=== PATIENT | female | born 1980 | race Hispanic/Latino ===

== ENCOUNTER 2016-09-19 08:30 | Inpatient (IN) | payer MEDICAID, OTHER ==
[2014-05-11 16:30] VITALS: BMI 17.7
[2016-09-19] MEDS ORDERED: Sodium Chloride 0.9% 1,000 ML IV ONE (09:01)
--- NOTE | 2016-09-19 09:34 | C.PDOC ---
History Of Present Illness 35 y/o female presents to the ED with complains of nausea, vomiting x1 month. Pt states every time she eats or drinks, she immediately becomes nauseous and vomits. She also states she hasn't been able to take her bipolar medications due to her N/V symptoms; she admits to worsening depression. Pt denies abdominal pain, diarrhea, chest pain, SOB, cough, fever. Time Seen by Provider: 09/19/16 08:41 Chief Complaint (Nursing): GI Problem History Per: Patient History/Exam Limitations: no limitations Onset/Duration Of Symptoms: Days Current Symptoms Are (Timing): Still Present Severity: Mild Recent travel outside of the [place]: No Past Medical History Reviewed: Historical Data, Nursing Documentation, Vital Signs Vital Signs: Last Vital Signs Temp 97.5 F L 09/22/16 15:14 Pulse 57 L 09/22/16 15:14 Resp 20 09/22/16 15:14 BP 100/69 09/22/16 15:14 Pulse Ox 100 09/24/16 15:12 - Medical History PMH: Asthma, Bipolar Disorder, Seizures (last seizure was 2013-jun) Surgical History: Appendectomy - [facility] Procedures ARTIF RUPT MEMBRANES NEC (09/29/04) CERVICAL LES CAUTERIZAT (05/14/14) D & C NEC (04/15/02) EPISIOTOMY (09/29/04) HYSTEROSCOPY (04/15/02) NEBULIZER THERAPY (03/17/04) UTERINE LES DESTRUCT NEC (04/15/02) Family History: States: No Known Family Hx - Social History Hx Alcohol Use: Yes Hx Substance Use: No Review Of Systems Except As Marked, All Systems Reviewed And Found Negative. Constitutional: Negative for: Fever Cardiovascular: Negative for: Chest Pain, Palpitations Respiratory: Negative for: Cough, Shortness of Breath Gastrointestinal: Positive for: Nausea, Vomiting. Negative for: Abdominal Pain , Diarrhea Genitourinary: Negative for: Dysuria, Hematuria Psych: Positive for: Depression Physical Exam - Physical Exam Appears: Non-toxic, No Acute Distress, Other (thin) Skin: Warm, Dry, No Rash Head: Normacephalic Oral Mucosa: Moist Neck: Supple Cardiovascular: Rhythm Regular, No Murmur Respiratory: Normal Breath Sounds, No Rales, No Rhonchi, No Wheezing Gastrointestinal/Abdominal: Soft, Tenderness (mild epigastric tenderness), No Guarding, No Rebound, Other ((-) Penn's, (-) McBurney's) Back: No CVA Tenderness Extremity: Bilateral: Atraumatic Neurological/Psych: Oriented x3 ED Course And Treatment - Laboratory Results Result Diagrams: 09/22/16 07:17 09/22/16 07:17 ECG: Interpreted By Me, Viewed By Me (NSR 73 bpm, normal axis, ST depressions II , III, aVF, V3-V6) ECG Interpretation: Abnormal O2 Sat by Pulse Oximetry: 100 (on room air) Pulse Ox Interpretation: Normal - CT Scan/US ABD US Other Rad Studies (CT/US): Read By Radiologist, Radiology Report Reviewed CT/US Interpretation: Accession No. : [id number]. Patient Name / ID : BETO [id number] / [id number]. Exam Date : 09/19/2016 10:18:40 ( Approved ). Study Comment : Sex / Age : F / 35Y. Creator : Frank Euceda MD. Dictator : Frank Euceda MD. Product Safety Technical Assistant : Exchange Specialist : Frank Euceda MD. Approver2 : Report Date : 09/19/2016 11:08:39. My Comment : . Right upper quadrant abdominal ultrasound. History: Persistent epigastric abdominal pain. Comparison: None available. Technique: Real-time sonography was performed through the right upper quadrant of the abdomen. Findings: Liver: 19.1 centimeters in length. Increased echogenicity. Gallbladder appears preserved. Normal wall thickness of 1.1 millimeters. Common bile duct measures 5.3 millimeters, within normal limits. Visualized portions of the pancreas are preserved. Pancreatic tail not well visualized. Visualized aorta and IVC are preserved. Right kidney: 12.7 x 4.9 x 5.0 centimeters. No calculi or hydronephrosis. Impression: Prominent liver measuring 19.1 centimeters with diffuse increased echogenicity suggestive for fatty infiltration versus diffuse hepatic parenchymal disease. Clinical correlation. Limited visualization of the pancreas. Clinical correlation. Progress Note: Plan: Blood work, UA, Upreg ordered and reviewed. Patient given IV NS bolus. Blood work shows severe hypokalemia (K=1.8) - IV KCL and PO PKdur ordered. - Physician Consult Information Physician Contacted: Eusebio Culver Outcome Of Conversation: Discussed patient with Dr. Culver, he agrees with telemetry admission for severe hypokalemia, persistent vomiting, abnormal ekg, bipolar disorder. Psych consult entered. Disposition - Disposition Disposition: HOSPITALIZED Disposition Time: 11:14 Condition: STABLE - Clinical Impression Clinical Impression: Persistent vomiting, Abnormal EKG, Hypokalemia, Bipolar disorder - Scribe Statement The provider has reviewed the documentation as recorded by the Daniel Maria Provider Attestation: All medical record entries made by the Daniel were at my direction and personally dictated by me. I have reviewed the chart and agree that the record accurately reflects my personal performance of the history, physical exam, medical decision making, and the department course for this patient. I have also personally directed, reviewed, and agree with the discharge instructions and disposition. Decision To Admit - Pt Status Changed To: Hospital Disposition Of: Inpatient - Admit Certification Admit to Inpatient:: After my assessment, the patient will require hospitalization for at least two midnights. This is because of the severity of symptoms shown, intensity of services needed, and/or the medical risk in this patient being treated as an outpatient. - InPatient: Physician Admission Certification: I certify that this patient requires 2 or more midnights of care for the following reason:: see notes - . Bed Request Type: Telemetry Admitting Physician: Eusebio Culver Patient Diagnosis: Persistent vomiting, Hypokalemia, Abnormal EKG, Bipolar disorder
[2016-09-19 09:51] LABS: BASO % 0.5 % (0.0-2.0); EOS % 0.3 % (0.0-4.0); LYMPH # 0.9 K/uL (1.0-4.3); LYMPH % 9.8 % (20.0-40.0); MEAN CELL VOLUME 106.1 fL (81.0-99.0); MEAN CORPUSCULAR HEMOGLOBIN 36.4 pg (27.0-31.0); MEAN CORPUSCULAR HGB CONC 34.3 g/dL (33.0-37.0); MEAN PLATELET VOLUME 8.1 fL (7.2-11.7); MONO # 1.1 K/uL (0.0-0.8); MONO % 12.3 % (0.0-10.0); PLATELET COUNT 329 K/uL (130-400); RED CELL DISTRIBUTION WIDTH 21.2 % (11.5-14.5); WHITE BLOOD COUNT 8.8 K/uL (4.8-10.8)
[2016-09-19 09:56] LABS: CHLORIDE 83 mmol/L (98-107); SODIUM 133 mmol/L (132-148)
[2016-09-19 09:58] LABS: GFR AFRICAN-AMERICAN > 60
[2016-09-19 09:59] LABS: ALKALINE PHOSPHATASE 136 U/L (38-126); ALT/SGPT 55 U/L (9-52); AST/SGOT 135 U/L (14-36); BILIRUBIN,TOTAL 0.9 mg/dL (0.2-1.3); BLOOD UREA NITROGEN 6 mg/dL (7-17); CALCIUM 8.4 mg/dl (8.6-10.4); GLUCOSE,RANDOM 109 mg/dL (65-105); TOTAL PROTEIN 6.3 g/dL (6.3-8.3)
[2016-09-19 10:00] LABS: ALCOHOL SERUM < 10 mg/dl (0-10)
[2016-09-19 10:11] LABS: POTASSIUM 1.8 mmol/L (3.6-5.2)
[2016-09-19 10:12] LABS: CARBON DIOXIDE 40 mmol/L (22-30)
[2016-09-19 10:21] LABS: BASOPHIL 1 % (0-2); NEUTROPHIL 76 % (50-75); REACTIVE LYMPHOCYTES 1 % (0-0); TOTAL CELLS COUNTED 100
[2016-09-19 10:22] LABS: LARGE PLATELETS PRESENT; STOMATOCYTES SLIGHT
[2016-09-19 11:06] LABS: VENOUS BLOOD GAS BASE EXCESS 11.8 mmol/L (0.0-2.0); VENOUS BLOOD GAS PCO2 53 mmHg (40-60); VENOUS BLOOD PH 7.46 (7.32-7.43)
[2016-09-19] MEDS ORDERED: Potassium Chloride 20 mEq 100 ML IVPB ONE ×4 (11:07→13:18)
[2016-09-19] MEDS ORDERED: Potassium Chloride 20 mEq ER Tab PO STA ×4 (11:08→23:47)
--- NOTE | 2016-09-19 11:10 | US ---
Right upper quadrant abdominal ultrasound History: Persistent epigastric abdominal pain. Comparison: None available. Technique: Real-time sonography was performed through the right upper quadrant of the abdomen. Findings: Liver: 19.1 centimeters in length. Increased echogenicity. Gallbladder appears preserved. Normal wall thickness of 1.1 millimeters. Common bile duct measures 5.3 millimeters, within normal limits. Visualized portions of the pancreas are preserved. Pancreatic tail not well visualized. Visualized aorta and IVC are preserved. Right kidney: 12.7 x 4.9 x 5.0 centimeters. No calculi or hydronephrosis. Impression: Prominent liver measuring 19.1 centimeters with diffuse increased echogenicity suggestive for fatty infiltration versus diffuse hepatic parenchymal disease. Clinical correlation. Limited visualization of the pancreas. Clinical correlation.
[2016-09-19 11:24] LABS: INR 1.1
[2016-09-19 11:28] LABS: POTASSIUM 1.8 mmol/L (3.6-5.2)
[2016-09-19] MEDS ORDERED: Sodium Chloride 0.9% 1,000 ML ONE (11:35)
[2016-09-19] MEDS ORDERED: Potassium Chloride 20 mEq ER Tab PO ONE ×2 (11:35→11:44)
[2016-09-19 11:39] LABS: RBC URINE < 1 /hpf (0-3); URINE BACTERIA RARE (<OCC); URINE BILIRUBIN NEGATIVE (NEGATIVE); URINE BLOOD NEGATIVE (NEGATIVE); URINE COLOR Yellow (YELLOW); URINE GLUCOSE (UA) NORMAL (Normal); URINE KETONE NEGATIVE (NEGATIVE); URINE LEUKOCYTE ESTERASE NEG Leu/uL (Negative); URINE PROTEIN NEGATIVE (NEGATIVE); URINE UROBILINOGEN NORMAL mg/dL (0.2-1.0); WBC URINE < 1 /hpf (0-5)
[2016-09-19 12:39] LABS: TROPONIN I 0.029 ng/mL (0.00-0.120)
--- NOTE | 2016-09-19 13:08 | CP.PCM.HP ---
<Arely Barnes - Last Filed: 09/19/16 16:35> History of Present Illness - History of Present Illness History of Present Illness: Internal medicine H & P for Dr. Dia Barnes, PGY-1 Pt S & E at bedside. 35 F w/PMH sig for bipolar d/o, seizure d/o, hx breast and uterine CA admitted for intractable nausea and vomiting x 1-1.5 mos. Pt states that 1-1.5 mo ago she got "the flu", thought it would go away. Emesis occurs average 10x/day, occasionally bilious, non bloody, projectile, incited by all PO intake with subsequent wt loss of approx 20lbs/1 mo. Admits to fatigue, weakness, palpitations, abdominal pain only with emesis (severe, sharp, non radiating, epigastric, aggravated by movement/PO intake), Chest pressure with emesis, occasional headache with strong vomiting, sore throat from vomiting, B/L LE cramps. No alleviating factors identified. Pt did not try to go to PMD - mother recently, was not taking meds, did not want to go. Denies ever having before, vision changes, changes in bowel or bladder habits, cough, rhinorrhea, congestion. PMH: Bipolar d/o, seizure d/o, Hx breast CA (age 25), Hx uterine CA (age 27) PSH: B/L Mastectomy w/reconstruction (2016), uterine tumor resection with curettage (2008), uterine curettage w/bx (2009), LEEP w/RAJESH 3 (2013), appendectomy (1996) All: Denies SH: Admits to tobacco use #3/day x 6 mos, former hx of 1ppd x 15 yrs, denies recent ETOH use (last drink 3 yrs ago), denies illicit drugs FH: M- 05/2017, maternal grandmother and maternal aunt with breast CA in 70' s and 50's PMD: Kayla (sp?) Home meds: Dilantin, Depakote, Seroquel Pharmacy: [facility] Present on Admission - Present on Admission Any Indicators Present on Admission: No History of DVT/PE: No History of Uncontrolled Diabetes: No Urinary Catheter: No Decubitus Ulcer Present: No Review of Systems - Review of Systems All systems: reviewed and no additional remarkable complaints except - Constitutional Constitutional: Headache, Weight Loss, Weakness. absent: Chills, Fever - EENT Eyes: absent: Blurred Vision, Change in Vision, Diplopia Ears: absent: Dizziness Nose/Mouth/Throat: Sore Throat. absent: Nasal Congestion, Sinus Pressure - Cardiovascular Cardiovascular: Chest Pain, Palpitations - Respiratory Respiratory: absent: Cough, Dyspnea on Exertion - Gastrointestinal Gastrointestinal: Abdominal Pain, Nausea, Vomiting. absent: Constipation, Diarrhea, Hematemesis, Hematochezia, Melena - Genitourinary Genitourinary: absent: Change in Urinary Stream, Dysuria, Hematuria, Pyuria - Reproductive: Female Reproductive:Female: Amenorrhea (for 6 mos) - Musculoskeletal Musculoskeletal: Muscle Cramps, Muscle Weakness. absent: Back Pain, Numbness, Tingling - Integumentary Integumentary: absent: Rash - Neurological Neurological: Weakness - Endocrine Endocrine: absent: Polydipsia, Polyuria Past Patient History - Past Medical History & Family History Past Medical History?: Yes - Past Social History Smoking Status: Light Smoker < 10 Cigarettes Daily - CARDIAC Hx Cardiac Disorders: No - PULMONARY Hx Asthma: Yes - NEUROLOGICAL Hx Seizures: Yes (last seizure was 2013-jun) - HEENT Hx HEENT Problems: No - ENDOCRINE/METABOLIC Hx Endocrine Disorders: No - HEMATOLOGICAL/ONCOLOGICAL Hx Blood Disorders: Yes Hx Cancer: Yes (BREAST, UTERINE) - INTEGUMENTARY Hx Dermatological Problems: No - MUSCULOSKELETAL/RHEUMATOLOGICAL Hx Musculoskeletal Disorders: No - GASTROINTESTINAL Hx Gastrointestinal Disorders: No - GENITOURINARY/GYNECOLOGICAL Hx Genitourinary Disorders: Yes Hx Uterine Cancer: Yes - PSYCHIATRIC Hx Bipolar Disorder: Yes Hx Substance Use: No - SURGICAL HISTORY Hx Appendectomy: Yes - ANESTHESIA Hx Anesthesia: Yes Hx Anesthesia Reactions: No Hx Malignant Hyperthermia: No Meds Allergies/Adverse Reactions: Allergies Allergy/AdvReac Type Severity Reaction Status Date / Time No Known Allergies Allergy Unverified 09/19/16 08:40 Physical Exam - Constitutional Appears: Non-toxic, No Acute Distress - Head Exam Head Exam: ATRAUMATIC, NORMAL INSPECTION, NORMOCEPHALIC - Eye Exam Eye Exam: EOMI, Normal appearance, PERRL. absent: Scleral icterus Pupil Exam: NORMAL ACCOMODATION, PERRL - ENT Exam ENT Exam: Mucous Membranes Moist, Normal Exam - Neck Exam Neck exam: Positive for: Full Rom, Normal Inspection. Negative for: Tenderness - Respiratory Exam Respiratory Exam: Clear to Auscultation Bilateral, NORMAL BREATHING PATTERN. absent: Rales, Rhonchi, Wheezes, Respiratory Distress, Stridor - Cardiovascular Exam Cardiovascular Exam: Tachycardia, +S1, +S2 - GI/Abdominal Exam GI & Abdominal Exam: Diminished Bowel Sounds, Hypoactive Bowel Sounds, Soft. absent: Distended, Firm, Guarding, Hernia, Mass, Pulsatile Mass, Rebound, Rigid , Tenderness - Extremities Exam Extremities exam: Positive for: full ROM, normal inspection. Negative for: pedal edema, tenderness - Back Exam Back exam: FULL ROM, NORMAL INSPECTION. absent: paraspinal tenderness, tenderness - Neurological Exam Neurological exam: Alert, CN II-XII Intact, Oriented x3 - Psychiatric Exam Psychiatric exam: Normal Affect, Normal Mood - Skin Skin Exam: Dry, Intact, Pallor, Warm Results - Vital Signs Recent Vital Signs: Last Vital Signs Temp 98.1 F 09/19/16 08:35 Pulse 76 09/19/16 10:25 Resp 18 09/19/16 10:25 BP 104/72 09/19/16 10:25 Pulse Ox 100 09/19/16 11:16 - Labs Result Diagrams: 09/19/16 09:45 09/19/16 11:08 Labs: Laboratory Results - last 24 hr 09/19/16 11:24 Urine Color Yellow Urine Clarity Clear Urine pH 9.0 Ur Specific [place] 1.002 L Urine Protein Negative Urine Glucose (UA) Normal Urine Ketones Negative Urine Blood Negative Urine Nitrate Negative Urine Bilirubin Negative Urine Urobilinogen Normal Ur Leukocyte Esterase Neg Urine WBC (Auto) < 1 Urine RBC (Auto) < 1 Ur Squamous Epith Cells 1 Urine Bacteria Rare Urine HCG, Qual Negative Urine Opiates Screen Negative Urine Methadone Screen Negative Ur Barbiturates Screen Negative Ur Phencyclidine Scrn Negative Ur Amphetamines Screen Negative U Benzodiazepines Scrn Negative U Oth Cocaine Metabols Negative U Cannabinoids Screen Negative Assessment & Plan - Assessment and Plan (Free Text) Assessment: Metabolic acidosis with Severe hypokalemia and hypochloremia due to intractable vomiting K 1.8 Chloride 83 Bicarb 40 MCV 106.1 Given 40 mEq KCl PO and 20mEq KcL IVBP x 2 in ED EKG with Started Folic Acid 1mg PO Daily Started K-Dur 20mEq daily Started NS + Kcl 10mEq @150cc/hr Thiamine 100mg PO Daily Vitamin B12 1,000 mcg PO daily Zofran 4mg Q6H PRN U/A neg Beta HcG neg UDS neg Mechanical Supervisor referral Started on [facility]D GI consulted- Eugenio Transaminitis/abdominal pain AST 135 ALT 55 ALP 136 Monitor Ab U/S with Prominent liver measuring 19.1 centimeters with diffuse increased echogenicity suggestive for fatty infiltration versus diffuse hepatic parenchymal disease. Clinical correlation. Limited visualization of the pancreas. Clinical correlation GI consulted Headache Tylenol PRN hx Bipolar d/o Restarted home med: Seroquel 300mg PO HS Psych consulted- Chepe Hx Seizure d/o Restarted home meds: Dilantin 600mg Q12H, Depakote 750mg PO QAM + 250mg PO HS GI/DVT ppx Pepcid SCDs Ambulate Dispo Admit to tele VS Q4H FU STAT Mg, Phos FU CMP at 10PM Activtiy as eleazar Ad araseli OOBTC FU AM labs Seizure precautions DW attending - Date & Time Date: 09/19/16 Time: 11:30 Decision To Admit - Pt Status Changed To: Hospital Disposition Of: Inpatient - Admit Certification Admit to Inpatient:: After my assessment, the patient will require hospitalization for at least two midnights. This is because of the severity of symptoms shown, intensity of services needed, and/or the medical risk in this patient being treated as an outpatient. - InPatient: Physician Admission Certification:: severe hypokalemia, intractable nausea/ vomiting, 20 lb wt loss over 1 mo, inability to tolerate oral intake - . Bed Request Type: Telemetry Admitting Physician: Eusebio Culver <Eusebio Culver - Last Filed: 09/19/16 17:47> Results - Vital Signs Recent Vital Signs: Last Vital Signs Temp 98.5 F 09/19/16 15:58 Pulse 97 H 09/19/16 15:58 Resp 20 09/19/16 15:58 BP 121/73 09/19/16 15:58 Pulse Ox 98 09/19/16 15:58 - Labs Result Diagrams: 09/19/16 09:45 09/19/16 11:08 Labs: Laboratory Results - last 24 hr 09/19/16 11:24 Urine Color Yellow Urine Clarity Clear Urine pH 9.0 Ur Specific [place] 1.002 L Urine Protein Negative Urine Glucose (UA) Normal Urine Ketones Negative Urine Blood Negative Urine Nitrate Negative Urine Bilirubin Negative Urine Urobilinogen Normal Ur Leukocyte Esterase Neg Urine WBC (Auto) < 1 Urine RBC (Auto) < 1 Ur Squamous Epith Cells 1 Urine Bacteria Rare Urine HCG, Qual Negative Urine Opiates Screen Negative Urine Methadone Screen Negative Ur Barbiturates Screen Negative Ur Phencyclidine Scrn Negative Ur Amphetamines Screen Negative U Benzodiazepines Scrn Negative U Oth Cocaine Metabols Negative U Cannabinoids Screen Negative Attending/Attestation - Attestation I have personally seen and examined this patient.: Yes I have fully participated in the care of the patient.: Yes I have reviewed all pertinent clinical information: Yes Notes (Text): Medical attending: Patient was seen and examined by me, agrees the above note by medical radiation therapist. The patient explains to us that she's been having about one month now of difficulty eating due to vomiting. She doesn't have any abdominal pain at present, and she does not feel nauseous or vomiting. On her lab work she has a very low potassium of 1.8, she is ready received some potassium replacements in the ER were to give her additional replacements as well. Also her bicarbonate is 40. And she is probably metabolic alkalosis from vomiting that she's been having. She was ready given intravenous fluids in the ER, I do agree with this and would add potassium to the bag as well the fluid rate will be about 125 250. We' ll recheck her potassium later on in the day. she says that every now and then she's been having palpitations as well as body cramps. This may be secondary to the very low potassium levels that she's had Also of note on her blood work as a elevated MCV of 106. She needs to be on thiamine and folate. Once the potassium is more stable she may need a GI evaluation as well. Thank you very much, Eusebio Culver
[2016-09-19 14:36] LABS: MAGNESIUM 1.8 mg/dL (1.6-2.3); PHOSPHOROUS 2.8 mg/dL (2.5-4.5)
--- NOTE | 2016-09-19 15:34 | CP.PCM.CON ---
<En Orozco - Last Filed: 09/19/16 15:23> History of Present Illness - History of Present Illness History of Present Illness: PGY4 GI Fellow Consult Note Patient is a 35yo female with PMHx significant for breast/uterine cancer s/p chemotherapy and XRT, seizure disorder, bipolar disorder who presented to the hospital with complaint of frequent emesis for 1.5 months. Suddenly, 1.5 months ago the patient began to have spells of vomiting. She will have upwards of ten episodes per day and has been only able to tolerate minimal amounts of food or liquid in this time frame. Even without eating, she has been vomiting bilious, projectile emesis. Pt admits to 20lb weight loss during this time frame. Initially she believed she had the flu but as symptoms did not improve she became more concerned. She admits that her mother recently in May and she had not been adherent to her anti-epileptic or bipolar medications leading up to the onset of this illness. She did not seek medical attention sooner because, as she puts it, she was "depressed and did not care what happened to her." She admits to a regurgitation of undigested food moments after ingestion, a burning sensation in her throat, dizziness and fainting spells after long bouts of vomiting. She denies any abdominal pain, preceding nausea, hematemesis, hematochezia, melena. Of note, she admits to a history of breast and uterine cancer for which she underwent B/L mastectomy, XRT and chemotherapy. She [place]ologist [place] whom she follows. Denies any recurrence of disease. PMHx: See HPI PSHx: B/L mastectomy FHx: Multiple family members with cancer (breast, uterine, prostate) Social: 2-3 cigarettes/day, denies EtOH or illicit drug use Endo: No prior endoscopic evaluations Review of Systems - Constitutional Constitutional: Anorexia, Weight Loss. absent: Chills, Fever - EENT Eyes: absent: Change in Vision Nose/Mouth/Throat: absent: Sore Throat - Cardiovascular Cardiovascular: absent: Chest Pain, Dyspnea, Edema - Respiratory Respiratory: absent: Cough, Dyspnea, Excessive Mucous Production - Gastrointestinal Gastrointestinal: Odynophagia, Vomiting. absent: Abdominal Pain, Bloating, Constipation, Cramping, Diarrhea, Dyspepsia, Dysphagia, Heartburn, Hematemesis, Hematochezia, Melena, Nausea - Genitourinary Genitourinary: absent: Dysuria, Urinary Frequency, Urinary Urgency - Musculoskeletal Musculoskeletal: absent: Back Pain, Neck Pain - Integumentary Integumentary: absent: New Lesions, Rash - Neurological Neurological: absent: Dizziness, Numbness, Focal Weakness - Psychiatric Psychiatric: absent: Anxiety, Depression - Endocrine Endocrine: absent: Polydipsia, Polyphagia, Polyuria - Hematologic/Lymphatic Hematologic: absent: Easy Bleeding, Easy Bruising, Lymphadenopathy Past Patient History - Past Medical History & Family History Past Medical History?: Yes - Past Social History Smoking Status: Light Smoker < 10 Cigarettes Daily - CARDIAC Hx Cardiac Disorders: No Hx Angina: No Hx Atrial Fibrillation: No Hx Cardia Arrhythmia: No Hx Circulatory Problems: No Hx Congestive Heart Failure: No Hx Heart Attack: No Hx Heart Murmur: No Hx Heart Transplant: No Hx Hypercholesterolemia: No Hx Hypertension: No Hx Hypotension: No Hx Internal Defibrillator: No Hx Mitral Valve Prolapse: No Hx Pacemaker: No Hx Peripheral Edema: No Hx Peripheral Vascular Disease: No - PULMONARY Hx Asthma: Yes Hx Bronchitis: No Hx Chronic Obstructive Pulmonary Disease (COPD): No Hx Emphysema: No Hx Lung Cancer: No Hx Pneumonia: No Hx Pulmonary Edema: No Hx Pulmonary Embolism: No Hx Respiratory Aspiration: No Hx Respiratory Tract Infection: No Hx Sleep Apnea: No Hx Tuberculosis: No - NEUROLOGICAL Hx Neurological Disorder: No Hx Alzheimer's Disease: No HX Cerebrovascular Accident: No Hx Dementia: No Hx Dizziness: No Hx Meningitis: No Hx Migraine: No Hx Multiple Sclerosis: No Hx Paralysis: No Hx Parkinson's Disease: No Hx Seizures: Yes (last seizure was 2013-jun) Hx Syncope: No Hx Transient Ischemic Attacks (TIA): No Hx Vertigo: No - HEENT Hx HEENT Problems: No - RENAL Other/Comment: Appendix removal - ENDOCRINE/METABOLIC Hx Endocrine Disorders: No - HEMATOLOGICAL/ONCOLOGICAL Hx Blood Disorders: Yes Hx Cancer: Yes (BREAST, UTERINE) - INTEGUMENTARY Hx Dermatological Problems: No - MUSCULOSKELETAL/RHEUMATOLOGICAL Hx Falls: Yes (Seizures) - GASTROINTESTINAL Hx Gastrointestinal Disorders: No Hx Vomiting: Yes - GENITOURINARY/GYNECOLOGICAL Hx Genitourinary Disorders: Yes Hx Uterine Cancer: Yes - PSYCHIATRIC Hx Anxiety: No Hx Bipolar Disorder: Yes Hx Depression: No Hx Emotional Abuse: No Hx Hallucinations: No Hx Panic Symptoms: No Hx Paranoia: No Hx Post Traumatic Stress Disorder: No Hx Psychosis: No Hx Physical Abuse: No Hx Schizophrenia: No Hx Sexual Abuse: No Hx Substance Use: No - SURGICAL HISTORY Hx Appendectomy: Yes - ANESTHESIA Hx Anesthesia: Yes Hx Anesthesia Reactions: No Hx Malignant Hyperthermia: No Has any member of the family had a problem w/ anesthesia?: No Meds Allergies/Adverse Reactions: Allergies Allergy/AdvReac Type Severity Reaction Status Date / Time No Known Allergies Allergy Unverified 09/19/16 08:40 - Medications Medications: Current Medications Acetaminophen (Tylenol 325mg Tab) 650 mg PO Q6 PRN PRN Reason: Headache Cyanocobalamin (Vitamin B12 1000 Mcg Tab) 1,000 mcg PO DAILY [facility] Divalproex Sodium (Depakote Er) 250 mg PO HS [facility] Divalproex Sodium (Depakote Er) 750 mg PO QAM [facility] Famotidine (Pepcid) 20 mg PO BID [facility] Folic Acid (Folic Acid) 1 mg PO DAILY [facility] Home Med (Phenytoin Sodium Extended [Phenytoin Sodium Extended]) 600 mg PO Q12 [facility] Home Med (Quetiapine [Seroquel]) 300 mg PO HS [facility] Potassium Chloride 10 meq/ (Sodium Chloride) 1,005 mls @ 150 mls/hr IV .Q6H42M [facility] Ondansetron HCl (Zofran Inj) 4 mg IVP Q6 PRN PRN Reason: Nausea/Vomiting Potassium Chloride (K-Dur 20 Meq Er Tab) 20 meq PO DAILY [facility] Thiamine HCl (Vitamin B1 Tab) 100 mg PO DAILY [facility] Physical Exam - Constitutional Appears: Non-toxic, No Acute Distress, Other (thin) - Eye Exam Eye Exam: EOMI, PERRL - ENT Exam ENT Exam: Mucous Membranes Moist - Respiratory Exam Respiratory Exam: Clear to Auscultation Bilateral. absent: Rales, Rhonchi, Wheezes - Cardiovascular Exam Cardiovascular Exam: RRR, +S1, +S2 - GI/Abdominal Exam GI & Abdominal Exam: Normal Bowel Sounds, Soft. absent: Distended, Firm, Guarding, Organomegaly, Rigid, Tenderness - Extremities Exam Extremities exam: Positive for: normal inspection. Negative for: pedal edema - Neurological Exam Neurological exam: Alert, CN II-XII Intact, Oriented x3 - Psychiatric Exam Psychiatric exam: Normal Affect, Normal Mood - Skin Skin Exam: Dry, Warm Results - Vital Signs Recent Vital Signs: Last Vital Signs Temp 98.1 F 09/19/16 15:19 Pulse 97 H 09/19/16 15:19 Resp 20 09/19/16 15:19 BP 111/77 09/19/16 15:19 Pulse Ox 99 09/19/16 15:19 - Labs Result Diagrams: 09/19/16 09:45 09/19/16 11:08 Labs: Laboratory Results - last 24 hr 09/19/16 11:24 Urine Color Yellow Urine Clarity Clear Urine pH 9.0 Ur Specific [place] 1.002 L Urine Protein Negative Urine Glucose (UA) Normal Urine Ketones Negative Urine Blood Negative Urine Nitrate Negative Urine Bilirubin Negative Urine Urobilinogen Normal Ur Leukocyte Esterase Neg Urine WBC (Auto) < 1 Urine RBC (Auto) < 1 Ur Squamous Epith Cells 1 Urine Bacteria Rare Urine HCG, Qual Negative Urine Opiates Screen Negative Urine Methadone Screen Negative Ur Barbiturates Screen Negative Ur Phencyclidine Scrn Negative Ur Amphetamines Screen Negative U Benzodiazepines Scrn Negative U Oth Cocaine Metabols Negative U Cannabinoids Screen Negative Assessment & Plan - Assessment and Plan (Free Text) Assessment: Patient is a 35yo female with PMHx significant for breast/uterine cancer s/p chemotherapy and XRT, seizure disorder, bipolar disorder who presented to the hospital with complaint of frequent emesis for 1.5 months. -Frequent emesis with metabolic alkalosis -Hypokalemia -H/O Breast/Uterine cancer, in remission per patient -Bipolar d/o - nonadherent to therapy given current episode -Epilepsy - nonadherent to therapy given current episode -Tobacco abuse Plan: -Recommend barium esophagram -Pending results of above, consider EGD as patient has h/o malignancy along with current alarm features - significant weight loss -Replete electrolytes and monitor BMP -UDS, hCG both negative -U/S reviewed - suggestion of fatty liver, concerning in patient with BMI 16 -Consider further imaging with CT chest/abdomen/pelvis pending above results -Clear liquid diet, advance as tolerated -Antiemetic therapy as ordered by primary service -Strongly encourage tobacco cessation - Date & Time Date: 09/19/16 Time: 15:00 <Kavon Becker - Last Filed: 09/19/16 15:59> Meds - Medications Medications: Current Medications Acetaminophen (Tylenol 325mg Tab) 650 mg PO Q6 PRN PRN Reason: Headache Cyanocobalamin (Vitamin B12 1000 Mcg Tab) 1,000 mcg PO DAILY [facility] Divalproex Sodium (Depakote Er) 250 mg PO HS [facility] Divalproex Sodium (Depakote Er) 750 mg PO QAM [facility] Famotidine (Pepcid) 20 mg PO BID [facility] Folic Acid (Folic Acid) 1 mg PO DAILY [facility] Home Med (Phenytoin Sodium Extended [Phenytoin Sodium Extended]) 600 mg PO Q12 [facility] Home Med (Quetiapine [Seroquel]) 300 mg PO HS [facility] Potassium Chloride 10 meq/ (Sodium Chloride) 1,005 mls @ 150 mls/hr IV .Q6H42M [facility] Ondansetron HCl (Zofran Inj) 4 mg IVP Q6 PRN PRN Reason: Nausea/Vomiting Potassium Chloride (K-Dur 20 Meq Er Tab) 20 meq PO DAILY [facility] Thiamine HCl (Vitamin B1 Tab) 100 mg PO DAILY [facility] Results - Vital Signs Recent Vital Signs: Last Vital Signs Temp 98.1 F 09/19/16 15:19 Pulse 97 H 09/19/16 15:19 Resp 20 09/19/16 15:19 BP 111/77 09/19/16 15:19 Pulse Ox 99 09/19/16 15:19 - Labs Result Diagrams: 09/19/16 09:45 09/19/16 11:08 Labs: Laboratory Results - last 24 hr 09/19/16 11:24 Urine Color Yellow Urine Clarity Clear Urine pH 9.0 Ur Specific [place] 1.002 L Urine Protein Negative Urine Glucose (UA) Normal Urine Ketones Negative Urine Blood Negative Urine Nitrate Negative Urine Bilirubin Negative Urine Urobilinogen Normal Ur Leukocyte Esterase Neg Urine WBC (Auto) < 1 Urine RBC (Auto) < 1 Ur Squamous Epith Cells 1 Urine Bacteria Rare Urine HCG, Qual Negative Urine Opiates Screen Negative Urine Methadone Screen Negative Ur Barbiturates Screen Negative Ur Phencyclidine Scrn Negative Ur Amphetamines Screen Negative U Benzodiazepines Scrn Negative U Oth Cocaine Metabols Negative U Cannabinoids Screen Negative Attending/Attestation - Attestation I have personally seen and examined this patient.: Yes I have fully participated in the care of the patient.: Yes I have reviewed all pertinent clinical information: Yes Notes (Text): 09/19/16 15:47 I have seen and examined patient with GI fellow. Agree with above documentation with the following additions. In brief, this is a 35 year old female with history of breast cancer s/p mastectomy, chemo/radiation therapy 10 years ago, bipolar disorder, cervical dysplasia s/p LEEP, who presents to hospital with intractable nausea and non-bloody emesis for the past one month. She claims that she began to develop sudden onset inability to tolerate PO solids and liquids with up to 10 episodes of vomiting daily. She has been dealing with a in her family which has caused severe depression and led her to not seek medical care more urgently. She denies odynophagia or history of eating disorder but does endorse occasional regurgitation of food product. She also reports an approximately 20 pound weight loss during this time period. She denies state or recent illicit drug use. No prior endoscopic evaluation. Bipolar disorder History of breast cancer s/p mastectomy, chemo/radiation therapy History of cervical dysplasia s/p LEEP Intractable nausea, vomiting Abdominal US reviewed by me showing fatty liver, otherwise no gross pathology - Given prior cancer history along with sudden onset symptoms, would obtain CT imaging of chest/abdomen/pelvis for further evaluation to rule out mass lesion. Ideally, would give contrast however due to ongoing nausea, vomiting would suggest non-contrast study for time being. - IVF hydration, replete electrolytes - Clear liquid diet as tolerated - Suggest barium esophagram to rule out stricture given prior history of radiation - Anti-emetic therapy PRN - Patient may require further endoscopic evaluation pending results of studies and clinical progress. Will continue to monitor.
[2016-09-19] MEDS: Potassium Chloride 20 mEq ER Tab PO SCH (17:21)
--- NOTE | 2016-09-19 17:42 | CT ---
CT chest, abdomen, and pelvis without IV contrast Indication: frequent vomiting, weight loss, h/o breast ca Technique: Contiguous axial images of the chest, abdomen, and pelvis without oral or IV contrast. Coronal and Sagittal reformats generated and reviewed. This CT exam was performed using 1 or more of the falling dose reduction techniques: Automated exposure control, adjustment of the MAA and/or kV according to patient size, and/or use of iterative reconstruction technique. Radiation dose: Total exam DLP = 357.24 MGy-cm. Comparison: Limited abdominal ultrasound performed 09/19/16 Findings: Visualized portions of the inferior thyroid gland appear unremarkable. The unenhanced mediastinal and hilar vascular structures appear grossly unremarkable. The heart appears within normal limits of size. There is no focal consolidation, significant pleural effusion, or definite pneumothorax evident. Punctate right upper lobe calcified granuloma. No suspicious pulmonary nodules measuring greater than 5 mm. Small hiatal hernia/distal esophageal wall thickening. Diffuse hypoattenuation of the liver compatible with hepatic steatosis. Hepatomegaly. Gallstone within the gallbladder. The noncontrast spleen, kidneys, pancreas, and adrenal glands appear unremarkable. The stomach is nondistended. Lack of oral contrast limits evaluation for bowel pathology. The bowel loops appear within normal limits of caliber without evidence of intestinal obstruction. No secondary signs of acute appendicitis. There is no definite free air. Uterus is present. Under distended urinary bladder limits evaluation. Bilateral breast prostheses. No acute osseous abnormality is detected. If clinical concern for osseous metastases, suggest nuclear medicine bone scan. Impression: Hepatic steatosis. Hepatomegaly. Cholelithiasis. Small hiatal hernia/distal esophageal wall thickening. Bilateral breast prosthesis. Additional findings as above.
[2016-09-19 23:00] LABS: BASO % 0.6 % (0.0-2.0); EOS # 0.1 K/uL (0.0-0.7); EOS % 1.2 % (0.0-4.0); HEMATOCRIT 35.7 % (34.0-47.0); LYMPH # 1.7 K/uL (1.0-4.3); LYMPH % 28.4 % (20.0-40.0); MEAN CELL VOLUME 105.8 fL (81.0-99.0); MEAN CORPUSCULAR HEMOGLOBIN 35.9 pg (27.0-31.0); MEAN PLATELET VOLUME 7.8 fL (7.2-11.7); MONO # 1.2 K/uL (0.0-0.8); MONO % 19.6 % (0.0-10.0); NRBC % 0.1 % (0.0-2.0); WHITE BLOOD COUNT 6.1 K/uL (4.8-10.8)
[2016-09-19] MEDS: Divalproex 250 mg DR Tab PO SCH (23:02)
[2016-09-19 23:09] LABS: CHLORIDE 96 mmol/L (98-107); SODIUM 134 mmol/L (132-148)
[2016-09-19 23:10] LABS: POTASSIUM 2.7 mmol/L (3.6-5.2)
[2016-09-19 23:12] LABS: ALKALINE PHOSPHATASE 99 U/L (38-126); AST/SGOT 112 U/L (14-36); BILIRUBIN,TOTAL 0.4 mg/dL (0.2-1.3); BLOOD UREA NITROGEN 4 mg/dL (7-17); CARBON DIOXIDE 29 mmol/L (22-30); GFR AFRICAN-AMERICAN > 60
[2016-09-19 23:13] LABS: ALT/SGPT 45 U/L (9-52); CALCIUM 7.4 mg/dl (8.6-10.4); GLUCOSE,RANDOM 101 mg/dL (65-105)
[2016-09-20] MEDS ORDERED: Potassium Chloride 20 mEq ER Tab PO STA (02:07)
[2016-09-20 07:33] LABS: BASO % 1.1 % (0.0-2.0); EOS # 0.1 K/uL (0.0-0.7); EOS % 2.1 % (0.0-4.0); HEMATOCRIT 32.9 % (34.0-47.0); LYMPH # 1.7 K/uL (1.0-4.3); LYMPH % 41.3 % (20.0-40.0); MEAN CELL VOLUME 108.5 fL (81.0-99.0); MEAN CORPUSCULAR HEMOGLOBIN 36.3 pg (27.0-31.0); MEAN CORPUSCULAR HGB CONC 33.5 g/dL (33.0-37.0); MONO # 0.8 K/uL (0.0-0.8); MONO % 18.3 % (0.0-10.0); RED CELL DISTRIBUTION WIDTH 21.5 % (11.5-14.5); WHITE BLOOD COUNT 4.2 K/uL (4.8-10.8)
[2016-09-20 07:46] LABS: CHLORIDE 103 mmol/L (98-107); POTASSIUM 2.8 mmol/L (3.6-5.2); SODIUM 137 mmol/L (132-148)
[2016-09-20 07:48] LABS: AST/SGOT 82 U/L (14-36); BILIRUBIN,TOTAL 0.3 mg/dL (0.2-1.3); CARBON DIOXIDE 27 mmol/L (22-30); GFR AFRICAN-AMERICAN > 60
[2016-09-20 07:49] LABS: ALB/GLOB RATIO 0.9 (1.0-2.1); ALKALINE PHOSPHATASE 80 U/L (38-126); ALT/SGPT 40 U/L (9-52); BLOOD UREA NITROGEN 4 mg/dL (7-17); CALCIUM 7.2 mg/dl (8.6-10.4); GLUCOSE,RANDOM 94 mg/dL (65-105); MAGNESIUM 1.7 mg/dL (1.6-2.3); PHOSPHOROUS 2.4 mg/dL (2.5-4.5); TOTAL PROTEIN 4.3 g/dL (6.3-8.3)
[2016-09-20] MEDS ORDERED: Barium Sulfate for Susp 96% w/w 176g Bottle PR ONE (08:59)
[2016-09-20] MEDS ORDERED: Barium Sulfate for Susp 98% w/w 340g Bottle ONE (08:59)
[2016-09-20] MEDS ORDERED: Potassium Chloride 20 mEq ER Tab PO ONE (10:00)
[2016-09-20] MEDS: Potassium Chloride 20 mEq ER Tab PO SCH (10:46)
[2016-09-20] MEDS: Divalproex 250 mg DR Tab PO SCH ×2 (10:46→22:02)
[2016-09-20] MEDS ORDERED: Potassium & Sodium Phosphate PO ONE (11:00)
--- NOTE | 2016-09-20 11:03 | CP.PCM.PN ---
<ChristalnadyaEn hollis - Last Filed: 09/20/16 12:56> Subjective - Date & Time of Evaluation Date of Evaluation: 09/20/16 Time of Evaluation: 10:20 - Subjective Subjective: PGY4 GI Fellow Progress Note Patient seen and examined bedside this morning. The patient admits to feeling better since admission and has had no episodes of emesis. Tolerating clear liquid diet and just returned from barium esophagram. She denies any episodes overnight and currently has no discomfort. 12 system ROS performed and negative except where stated. Objective - Vital Signs/Intake and Output Vital Signs (last 24 hours): Temp Pulse Resp BP Pulse Ox 98 F 86 20 97/68 L 100 09/20/16 07:00 09/20/16 07:00 09/20/16 07:00 09/20/16 07:00 09/20/16 07:00 Intake and Output: 09/20/16 09/20/16 06:59 18:59 Intake Total 1320 Balance 1320 - Medications Medications: Current Medications Acetaminophen (Tylenol 325mg Tab) 650 mg PO Q6 PRN PRN Reason: Headache Cyanocobalamin (Vitamin B12 1000 Mcg Tab) 1,000 mcg PO DAILY [facility] Last Admin: 09/20/16 10:47 Dose: 1,000 mcg Divalproex Sodium (Depakote Dr) 250 mg PO HS [facility] Last Admin: 09/19/16 23:02 Dose: 250 mg Divalproex Sodium (Depakote Dr) 750 mg PO QAM [facility] Last Admin: 09/20/16 10:46 Dose: 750 mg Famotidine (Pepcid) 20 mg PO BID [facility] Last Admin: 09/20/16 10:47 Dose: 20 mg Folic Acid (Folic Acid) 1 mg PO DAILY [facility] Last Admin: 09/20/16 10:46 Dose: 1 mg Potassium Chloride 10 meq/ (Sodium Chloride) 1,005 mls @ 150 mls/hr IV .Q6H42M [facility] Last Admin: 09/20/16 10:49 Dose: 150 mls/hr Ondansetron HCl (Zofran Inj) 4 mg IVP Q6 PRN PRN Reason: Nausea/Vomiting Last Admin: 09/19/16 17:20 Dose: 4 mg Phenytoin Sodium (Dilantin) 600 mg PO Q12 [facility] Pneumococcal Polyvalent Vaccine (Pneumovax 23 Vaccine) 0.5 ml IM .ONCE ONE Stop: 09/22/16 10:01 Potassium Chloride (K-Dur 20 Meq Er Tab) 20 meq PO DAILY [facility] Last Admin: 09/20/16 10:46 Dose: 20 meq Potassium Phos/Sodium Phos (Neutra-Phos) 1 pkt PO ONCE ONE Stop: 09/20/16 11:01 Last Admin: 09/20/16 10:47 Dose: 1 pkt Quetiapine Fumarate (Seroquel) 300 mg PO HS [facility] Last Admin: 09/19/16 22:38 Dose: 300 mg Thiamine HCl (Vitamin B1 Tab) 100 mg PO DAILY [facility] Last Admin: 09/20/16 10:47 Dose: 100 mg - Labs Labs: 09/20/16 07:20 09/20/16 07:20 PT 12.2 SECONDS (9.7-12.2) 09/19/16 11:08 INR 1.1 09/19/16 11:08 APTT 29 SECONDS (21-34) 09/19/16 11:08 - Constitutional Appears: Non-toxic, No Acute Distress - Eye Exam Eye Exam: EOMI, PERRL - ENT Exam ENT Exam: Mucous Membranes Moist - Respiratory Exam Respiratory Exam: Clear to Ausculation Bilateral. absent: Rales, Rhonchi, Wheezes - Cardiovascular Exam Cardiovascular Exam: RRR, +S1, +S2 - GI/Abdominal Exam GI & Abdominal Exam: Soft, Normal Bowel Sounds. absent: Distended, Firm, Guarding, Rigid, Tenderness, Organomegaly - Extremities Exam Extremities Exam: Normal Inspection. absent: Pedal Edema - Neurological Exam Neurological Exam: Alert, Awake, Oriented x3 - Psychiatric Exam Psychiatric exam: Normal Affect, Normal Mood - Skin Skin Exam: Dry, Warm Assessment and Plan - Assessment and Plan (Free Text) Assessment: Patient is a 35yo female with PMHx significant for breast/uterine cancer s/p chemotherapy and XRT, seizure disorder, bipolar disorder who presented to the hospital with complaint of frequent emesis for 1.5 months. -Frequent emesis with metabolic alkalosis -Hypokalemia, improved -H/O Breast/Uterine cancer, in remission per patient -Bipolar d/o - nonadherent to therapy given current episode -Epilepsy - nonadherent to therapy given current episode -Tobacco abuse -Hepatic steatosis - former heavy EtOH use Plan: -CT reviewed, thickening noted at distal esophagus, possibly 2/2 frequent emesis but would warrant further evaluation in patient with h/o malignancy -Barium esophagram pending - per my interpretation, normal study -Plan for EGD tomorrow, NPO past MN - replete K prior to procedure -Replete electrolytes and monitor BMP -Check B12, folate and TSH in setting of macrocytosis, fatty liver -Clear liquid diet, advance to full liquid today -Antiemetic therapy as ordered by primary service -Strongly encourage tobacco cessation <Odalys Brar - Last Filed: 09/20/16 15:33> Objective - Vital Signs/Intake and Output Vital Signs (last 24 hours): Temp Pulse Resp BP Pulse Ox 98 F 92 H 20 97/68 L 100 09/20/16 07:00 09/20/16 10:00 09/20/16 07:00 09/20/16 07:00 09/20/16 07:00 Intake and Output: 09/20/16 09/20/16 06:59 18:59 Intake Total 1320 1500 Balance 1320 1500 - Medications Medications: Current Medications Acetaminophen (Tylenol 325mg Tab) 650 mg PO Q6 PRN PRN Reason: Headache Cyanocobalamin (Vitamin B12 1000 Mcg Tab) 1,000 mcg PO DAILY [facility] Last Admin: 09/20/16 10:47 Dose: 1,000 mcg Divalproex Sodium (Depakote Dr) 250 mg PO HS [facility] Last Admin: 09/19/16 23:02 Dose: 250 mg Divalproex Sodium (Depakote Dr) 750 mg PO QAM [facility] Last Admin: 09/20/16 10:46 Dose: 750 mg Famotidine (Pepcid) 20 mg PO BID [facility] Last Admin: 09/20/16 10:47 Dose: 20 mg Folic Acid (Folic Acid) 1 mg PO DAILY [facility] Last Admin: 09/20/16 10:46 Dose: 1 mg Potassium Chloride 10 meq/ (Sodium Chloride) 1,005 mls @ 150 mls/hr IV .Q6H42M [facility] Last Admin: 09/20/16 12:43 Dose: Not Given Ondansetron HCl (Zofran Inj) 4 mg IVP Q6 PRN PRN Reason: Nausea/Vomiting Last Admin: 09/19/16 17:20 Dose: 4 mg Phenytoin Sodium (Dilantin) 600 mg PO Q12 [facility] Last Admin: 09/20/16 12:46 Dose: 600 mg Pneumococcal Polyvalent Vaccine (Pneumovax 23 Vaccine) 0.5 ml IM .ONCE ONE Stop: 09/22/16 10:01 Potassium Chloride (K-Dur 20 Meq Er Tab) 20 meq PO DAILY [facility] Last Admin: 09/20/16 10:46 Dose: 20 meq Quetiapine Fumarate (Seroquel) 300 mg PO HS [facility] Last Admin: 09/19/16 22:38 Dose: 300 mg Thiamine HCl (Vitamin B1 Tab) 100 mg PO DAILY [facility] Last Admin: 09/20/16 10:47 Dose: 100 mg - Labs Labs: 09/20/16 07:20 09/20/16 07:20 PT 12.2 SECONDS (9.7-12.2) 09/19/16 11:08 INR 1.1 09/19/16 11:08 APTT 29 SECONDS (21-34) 09/19/16 11:08 Attending/Attestation - Attestation I have personally seen and examined this patient.: Yes I have fully participated in the care of the patient.: Yes I have reviewed all pertinent clinical information, including history, physical exam and plan: Yes Notes (Text): Patient seen and examined with GI fellow. Agree with his note as documented above with the following additions/exceptions. This is a 35 year old female with PMHx of breast/uterine cancer s/p chemotherapy and XRT, seizure disorder, bipolar disorder who presents with nausea/vomiting and severe electrolyte imbalance. She also reports weight loss. CT c/a/p with possible esophageal wall thickening, esophagram unremarkable. She feels slightly improved, no further vomiting. Continue antiemetic therapy as needed, full liquid diet as tolerated. Monitor electrolytes, continue with K repletion. Recommend EGD for further investigation, keep NPO p MN. 09/20/16 15:30
--- NOTE | 2016-09-20 11:30 | CARD ---
APPROVED REPORT EKG Measurement Heart [id number] <Conclusion> Normal sinus rhythm ST & T wave abnormality, consider lateral ischemia or digoxin effect Abnormal ECG
--- NOTE | 2016-09-20 13:05 | RAD ---
HISTORY: Dysphagia. COMPARISON: None. TECHNIQUE: Double Contrast esophagram was performed. FINDINGS: Patient tolerated procedure well. ESOPHAGUS: Esophageal mucosa appeared preserved. No evidence of stricture or mass lesion. HIATAL HERNIA: Questionable small hiatal hernia. GASTROESOPHAGEAL REFLUX: Not demonstrated. OTHER FINDINGS: None. IMPRESSION: No stricture or mass lesion identified. If symptoms persist, upper endoscopy can be considered.
--- NOTE | 2016-09-20 14:36 | PCM.PSYCH ---
Initial Psychiatric Evaluation - Initial Psychiatric Evaluation Type of Admission: Voluntary Legal Status: Capacity Chief Complaint (in patient's own words): I was vomiting History of Present Illness and Precipitating Events: Patient is a 35 years old CF, is currently unemployed but living with boyfriend , with a long history of bipolar disorder, came to the ED with continuous vomiting. Today patient was consulted because of history of bipolar disorder. Patient reports a long history of bipolar disorder. As per the patient he has been admitted to the hospital multiple times because of her condition. She was last discharge from [facility] couple of years ago. As per the patient she started vomiting continuously for a few days, as a result she stopped taking her medications, i.e. Depakote and Seroquel. Patient reports of racing of thoughts, flight of ideas, anxiety and irritability. She reports that she easily gets angry and irritable. At times she gets depressed but denies any feelings of hopelessness or helplessness. she denies any suicidal ideation or homicidal ideation. She reports at times persecutory delusions but denies any hallucinations. She denies any recent drinking or substance abuse. past medical history History of seizures, hx breast and uterine CA Current Medications: Active Medications Generic Name Dose Route Start Last Admin Trade Name Freq PRN Reason Stop Dose Admin Acetaminophen 650 mg 09/19/16 13:45 Tylenol 325mg Tab PO Q6 PRN Headache Cyanocobalamin 1,000 mcg 09/19/16 17:00 09/20/16 10:47 Vitamin B12 1000 Mcg Tab PO 1,000 mcg DAILY MARY GRACE Administration Divalproex Sodium 250 mg 09/19/16 22:00 09/19/16 23:[address] PO 250 mg HS MARY GRACE Administration Divalproex Sodium 750 mg 09/20/16 10:00 09/20/16 10:[address] PO 750 mg QAM MARY GRACE Administration Famotidine 20 mg 09/19/16 18:00 09/20/16 10:47 Pepcid PO 20 mg BID MARY GRACE Administration Folic Acid 1 mg 09/19/16 16:30 09/20/16 10:46 Folic Acid PO 1 mg DAILY MARY GRACE Administration Potassium Chloride 10 meq/ 1,005 mls @ 150 mls/hr 09/19/16 17:00 09/20/16 12:43 Sodium Chloride IV Not Given .Q6H42M MARY GRACE Ondansetron HCl 4 mg 09/19/16 13:45 09/19/16 17:20 Zofran Inj IVP 4 mg Q6 PRN Administration Nausea/Vomiting Phenytoin Sodium 600 mg 09/19/16 14:00 09/20/16 12:46 Dilantin PO 600 mg Q12 MARY GRACE Administration Pneumococcal Polyvalent Vaccine 0.5 ml 09/22/16 10:00 Pneumovax 23 Vaccine IM 09/22/16 10:01 .ONCE ONE Potassium Chloride 20 meq 09/19/16 16:45 09/20/16 10:46 K-Dur 20 Meq Er Tab PO 20 meq DAILY MARY GRACE Administration Quetiapine Fumarate 300 mg 09/19/16 22:00 09/19/16 22:38 Seroquel PO 300 mg HS [facility] Administration Thiamine HCl 100 mg 09/19/16 16:30 09/20/16 10:47 Vitamin B1 Tab PO 100 mg DAILY MARY GRACE Administration Past Psychiatric History - Past Psychiatric History Previous Treatment History: Inpatient Pertinent Medical Hx (Current Medical&Sleep Prob, Allergies): Allergies Allergy/AdvReac Type Severity Reaction Status Date / Time No Known Allergies Allergy Unverified 09/19/16 08:40 Divalproex [Depakote ER] 750 mg PO QAM 05/11/14 QUEtiapine [SEROquel] 300 mg PO HS 05/11/14 Divalproex [Depakote ER] 250 mg PO HS 09/19/16 Phenytoin Sodium Extended [Extended Phenytoin Sodium] 600 mg PO Q12 09/19/16 Review of Systems - Review of Systems All systems: reviewed and no additional remarkable complaints except - Psychiatric Psychiatric: Anxiety, Irritability, Panic Attacks Mental Status Examination - Personal Presentation Personal Presentation: Looks stated age - Affect Affect: Constricted - Motor Activity Motor Activity: Psychomotor Agitation - Reliability in Providing Information Reliability in Providing Information: Poor, due to altered mood - Speech Speech: Organized - Mood Mood: Anxious - Formal Thought Process Formal Thought Process: Flight of ideas - Obsessions/Compulsions Obsessions: No Compulsions: No - Cognitive Functions Orientation: Person, Place, Situation, Time Sensorium: Alert Attention/Concentration: Attentive Abstract Thinking: [place] Estimate of Intelligence: Below average Judgement: Imparied, as evidence by: Poor judgement, Imparied, as evidence by: Lack of insight into illness - Risk Risk: Diminished functioning - Strength & Assets Inventory Strength & Assets Inventory: Family support, Cooperative DSM 5 DX - DSM 5 DSM 5 Diagnosis: 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
--- NOTE | 2016-09-20 15:07 | CP.PCM.PN ---
<Arely Barnes - Last Filed: 09/20/16 15:04> Subjective - Date & Time of Evaluation Date of Evaluation: 09/20/16 Time of Evaluation: 07:30 - Subjective Subjective: Internal medicine progress note for Dr. Culver-Arely Barnes, PGY-1 Pt S & E at bedside. Pt reports feeling much improved. No nausea or vomiting over night. Tolerating CLD. Denies N/V/F/C, SOB, CP, abdominal pain, constipation, diarrhea. Objective - Vital Signs/Intake and Output Vital Signs (last 24 hours): Temp Pulse Resp BP Pulse Ox 98 F 92 H 20 97/68 L 100 09/20/16 07:00 09/20/16 10:00 09/20/16 07:00 09/20/16 07:00 09/20/16 07:00 Intake and Output: 09/20/16 09/20/16 06:59 18:59 Intake Total 1320 Balance 1320 - Medications Medications: Current Medications Acetaminophen (Tylenol 325mg Tab) 650 mg PO Q6 PRN PRN Reason: Headache Cyanocobalamin (Vitamin B12 1000 Mcg Tab) 1,000 mcg PO DAILY [facility] Last Admin: 09/20/16 10:47 Dose: 1,000 mcg Divalproex Sodium (Depakote Dr) 250 mg PO HS [facility] Last Admin: 09/19/16 23:02 Dose: 250 mg Divalproex Sodium (Depakote Dr) 750 mg PO QAM [facility] Last Admin: 09/20/16 10:46 Dose: 750 mg Famotidine (Pepcid) 20 mg PO BID [facility] Last Admin: 09/20/16 10:47 Dose: 20 mg Folic Acid (Folic Acid) 1 mg PO DAILY [facility] Last Admin: 09/20/16 10:46 Dose: 1 mg Potassium Chloride 10 meq/ (Sodium Chloride) 1,005 mls @ 150 mls/hr IV .Q6H42M [facility] Last Admin: 09/20/16 12:43 Dose: Not Given Ondansetron HCl (Zofran Inj) 4 mg IVP Q6 PRN PRN Reason: Nausea/Vomiting Last Admin: 09/19/16 17:20 Dose: 4 mg Phenytoin Sodium (Dilantin) 600 mg PO Q12 [facility] Last Admin: 09/20/16 12:46 Dose: 600 mg Pneumococcal Polyvalent Vaccine (Pneumovax 23 Vaccine) 0.5 ml IM .ONCE ONE Stop: 09/22/16 10:01 Potassium Chloride (K-Dur 20 Meq Er Tab) 20 meq PO DAILY [facility] Last Admin: 09/20/16 10:46 Dose: 20 meq Quetiapine Fumarate (Seroquel) 300 mg PO HS [facility] Last Admin: 09/19/16 22:38 Dose: 300 mg Thiamine HCl (Vitamin B1 Tab) 100 mg PO DAILY [facility] Last Admin: 09/20/16 10:47 Dose: 100 mg - Labs Labs: 09/20/16 07:20 09/20/16 07:20 PT 12.2 SECONDS (9.7-12.2) 09/19/16 11:08 INR 1.1 09/19/16 11:08 APTT 29 SECONDS (21-34) 09/19/16 11:08 - Constitutional Appears: Non-toxic, No Acute Distress, Cachectic - Head Exam Head Exam: ATRAUMATIC, NORMAL INSPECTION, NORMOCEPHALIC - Eye Exam Eye Exam: EOMI, Normal appearance, PERRL Pupil Exam: NORMAL ACCOMODATION, PERRL - ENT Exam ENT Exam: Mucous Membranes Moist, Normal Exam - Neck Exam Neck Exam: Full ROM, Normal Inspection. absent: Lymphadenopathy - Respiratory Exam Respiratory Exam: Clear to Ausculation Bilateral, NORMAL BREATHING PATTERN - Cardiovascular Exam Cardiovascular Exam: REGULAR RHYTHM, +S1, +S2. absent: Murmur - GI/Abdominal Exam GI & Abdominal Exam: Soft, Hypoactive Bowel Sounds. absent: Tenderness - Extremities Exam Extremities Exam: Full ROM, Normal Capillary Refill, Normal Inspection. absent : Joint Swelling, Pedal Edema - Back Exam Back Exam: NORMAL INSPECTION - Neurological Exam Neurological Exam: Alert, Awake, CN II-XII Intact, Oriented x3 - Psychiatric Exam Psychiatric exam: Normal Affect, Normal Mood - Skin Skin Exam: Dry, Intact, Pallor, Warm Assessment and Plan - Assessment and Plan (Free Text) Assessment: Metabolic acidosis with Severe hypokalemia and hypochloremia due to intractable vomiting - resolving K 2.8 from 1.8 Chloride 103 from 83 Bicarb 27 from 40 MCV 108.5 from 106.1 Replaced KCl 40mEq Cont Folic Acid 1mg PO Daily Cont K-Dur 20mEq daily Cont NS + Kcl 10mEq @150cc/hr Thiamine 100mg PO Daily Vitamin B12 1,000 mcg PO daily Zofran 4mg Q6H PRN U/A neg Beta HcG neg UDS neg Security Director referral CLD advanced to FLD per GI GI recs - Ba esophagram, EGD in AM, NPO as MN, replete lytes, check B12, Folate , TSH, CLD advanced to FLD, antiemetics, encourage tobacco cessation Ba esophagram w/No stricture or mass lesion identified. If symptoms persist, upper endoscopy can be considered. FU JUAN Transaminitis/abdominal pain- resolved AST 82 from 135 ALT 40 from 55 ALP 80 from 136 Monitor Ab U/S with Prominent liver measuring 19.1 centimeters with diffuse increased echogenicity suggestive for fatty infiltration versus diffuse hepatic parenchymal disease. Clinical correlation. Limited visualization of the pancreas. Clinical correlation CT ab w/Hepatic steatosis. Hepatomegaly. Cholelithiasis. Small hiatal hernia/ distal esophageal wall thickening. Bilateral breast prosthesis. GI following Hypophosphatemia Phos 2.4 neutraphos x 1 Monitor Headache Tylenol PRN hx Bipolar d/o Restarted home med: Seroquel 300mg PO HS Psych consulted- Chepe- recs pending Hx Seizure d/o Restarted home meds: Dilantin 600mg Q12H, Depakote 750mg PO QAM + 250mg PO HS GI/DVT ppx Pepcid SCDs Ambulate Dispo cont med mgmt FU CMP at 4PM Activtiy as eleazar Ad araseli OOBTC FU AM labs Seizure precautions NPO after MN EGD in AM DW attending <Eusebio Culver - Last Filed: 09/20/16 16:10> Objective - Vital Signs/Intake and Output Vital Signs (last 24 hours): Temp Pulse Resp BP Pulse Ox 98.5 F 92 H 20 97/66 L 100 09/20/16 16:03 09/20/16 16:03 09/20/16 16:03 09/20/16 16:03 09/20/16 16:03 Intake and Output: 09/20/16 09/20/16 06:59 18:59 Intake Total 1320 1500 Balance 1320 1500 - Medications Medications: Current Medications Acetaminophen (Tylenol 325mg Tab) 650 mg PO Q6 PRN PRN Reason: Headache Cyanocobalamin (Vitamin B12 1000 Mcg Tab) 1,000 mcg PO DAILY [facility] Last Admin: 09/20/16 10:47 Dose: 1,000 mcg Divalproex Sodium (Depakote Dr) 250 mg PO HS [facility] Last Admin: 09/19/16 23:02 Dose: 250 mg Divalproex Sodium (Depakote Dr) 750 mg PO QAM [facility] Last Admin: 09/20/16 10:46 Dose: 750 mg Famotidine (Pepcid) 20 mg PO BID [facility] Last Admin: 09/20/16 10:47 Dose: 20 mg Folic Acid (Folic Acid) 1 mg PO DAILY [facility] Last Admin: 09/20/16 10:46 Dose: 1 mg Potassium Chloride 10 meq/ (Sodium Chloride) 1,005 mls @ 150 mls/hr IV .Q6H42M [facility] Last Admin: 09/20/16 12:43 Dose: Not Given Ondansetron HCl (Zofran Inj) 4 mg IVP Q6 PRN PRN Reason: Nausea/Vomiting Last Admin: 09/19/16 17:20 Dose: 4 mg Phenytoin Sodium (Dilantin) 600 mg PO Q12 [facility] Last Admin: 09/20/16 12:46 Dose: 600 mg Pneumococcal Polyvalent Vaccine (Pneumovax 23 Vaccine) 0.5 ml IM .ONCE ONE Stop: 09/22/16 10:01 Potassium Chloride (K-Dur 20 Meq Er Tab) 20 meq PO DAILY [facility] Last Admin: 09/20/16 10:46 Dose: 20 meq Quetiapine Fumarate (Seroquel) 300 mg PO HS [facility] Last Admin: 09/19/16 22:38 Dose: 300 mg Thiamine HCl (Vitamin B1 Tab) 100 mg PO DAILY [facility] Last Admin: 09/20/16 10:47 Dose: 100 mg - Labs Labs: 09/20/16 07:20 09/20/16 07:20 PT 12.2 SECONDS (9.7-12.2) 09/19/16 11:08 INR 1.1 09/19/16 11:08 APTT 29 SECONDS (21-34) 09/19/16 11:08 Attending/Attestation - Attestation I have personally seen and examined this patient.: Yes I have fully participated in the care of the patient.: Yes I have reviewed all pertinent clinical information, including history, physical exam and plan: Yes Notes (Text): Medical Attending: Patient was seen and examined by me. Agree with the above note by the resident - the patient overnight continued to receive IVF as well as K replacement both PO, IV, as well as in the IVF. It increased to 2.8 today - also the metabolic alkalosis appears to have resolved as well. Patient is currently being evaluated by GI at this time. She had a barium swallow study this morning and from what I understand GI is planning on EGD She explains to us that last night was tolerating some of the juice and oral fluids without become nausea or pain. thank you Eusebio Culver
[2016-09-20 15:44] LABS: THYROID STIMULATING HORMONE 0.93 mIU/L (0.46-4.68)
[2016-09-20 16:19] LABS: FOLATE 4.7 ng/mL
[2016-09-20 17:07] LABS: CHLORIDE 104 mmol/L (98-107); POTASSIUM 3.3 mmol/L (3.6-5.2); SODIUM 138 mmol/L (132-148)
[2016-09-20 17:09] LABS: GFR AFRICAN-AMERICAN > 60
[2016-09-20 17:10] LABS: BLOOD UREA NITROGEN 3 mg/dL (7-17); CALCIUM 7.3 mg/dl (8.6-10.4); CARBON DIOXIDE 23 mmol/L (22-30); GLUCOSE,RANDOM 80 mg/dL (65-105)
[2016-09-20] MEDS: Valproic Acid 250 mg/5 ml UD Cup PO SCH (18:07)
[2016-09-21 08:05] LABS: BASO # 0.1 K/uL (0.0-0.2); BASO % 1.2 % (0.0-2.0); EOS # 0.1 K/uL (0.0-0.7); EOS % 2.4 % (0.0-4.0); HEMATOCRIT 37.4 % (34.0-47.0); LYMPH % 40.8 % (20.0-40.0); MEAN CELL VOLUME 110.3 fL (81.0-99.0); MEAN CORPUSCULAR HGB CONC 32.6 g/dL (33.0-37.0); MONO # 0.6 K/uL (0.0-0.8); MONO % 12.7 % (0.0-10.0); WHITE BLOOD COUNT 4.9 K/uL (4.8-10.8)
[2016-09-21 08:15] LABS: MAGNESIUM 1.4 mg/dL (1.6-2.3); PHOSPHOROUS 2.5 mg/dL (2.5-4.5)
[2016-09-21] MEDS ORDERED: Lactated Ringer's 500 ML IV ONE ×2 (08:24)
[2016-09-21] MEDS ORDERED: Midazolam 2 MG/2 ML VIAL ONE (08:39)
[2016-09-21] MEDS ORDERED: Propofol 10 mg/ml Inj (20 ML) ONE (08:40)
--- NOTE | 2016-09-21 08:52 | CP.PCM.PN ---
Subjective - Date & Time of Evaluation Date of Evaluation: 09/21/16 Time of Evaluation: 08:49 - Subjective Subjective: Patient seen and examined. No acute events overnight, her symptoms have improved and she is tolerating PO liquids without difficulty. No recurrent nausea or vomiting since arrival to hospital. s/p EGD today showing esophageal plaque, gastritis, and duodenitis. Objective - Vital Signs/Intake and Output Vital Signs (last 24 hours): Temp Pulse Resp BP Pulse Ox 97.1 F L 92 H 18 115/66 100 09/21/16 08:37 09/21/16 08:37 09/21/16 08:37 09/21/16 08:37 09/21/16 08:37 Intake and Output: 09/21/16 09/21/16 06:59 18:59 Intake Total 1200 Balance 1200 - Medications Medications: Current Medications Acetaminophen (Tylenol 325mg Tab) 650 mg PO Q6 PRN PRN Reason: Headache Clonazepam (Klonopin) 0.5 mg PO BID [facility] Last Admin: 09/20/16 18:07 Dose: 0.5 mg Cyanocobalamin (Vitamin B12 1000 Mcg Tab) 1,000 mcg PO DAILY [facility] Last Admin: 09/20/16 10:47 Dose: 1,000 mcg Divalproex Sodium (Depakote Dr) 250 mg PO HS [facility] Last Admin: 09/20/16 22:02 Dose: 250 mg Divalproex Sodium (Depakote Dr) 750 mg PO QAM [facility] Last Admin: 09/20/16 10:46 Dose: 750 mg Folic Acid (Folic Acid) 1 mg PO DAILY [facility] Last Admin: 09/20/16 10:46 Dose: 1 mg Hydroxyzine HCl (Atarax) 50 mg PO QID PRN PRN Reason: Agitation Potassium Chloride 10 meq/ (Sodium Chloride) 1,005 mls @ 150 mls/hr IV .Q6H42M [facility] Last Admin: 09/21/16 07:20 Dose: 150 mls/hr Ondansetron HCl (Zofran Inj) 4 mg IVP Q6 PRN PRN Reason: Nausea/Vomiting Last Admin: 09/19/16 17:20 Dose: 4 mg Pantoprazole Sodium (Protonix Ec Tab) 40 mg PO DAILY [facility] Phenytoin Sodium (Dilantin) 100 mg PO TID [facility] Last Admin: 09/20/16 20:01 Dose: 100 mg Pneumococcal Polyvalent Vaccine (Pneumovax 23 Vaccine) 0.5 ml IM .ONCE ONE Stop: 09/22/16 10:01 Potassium Chloride (K-Dur 20 Meq Er Tab) 20 meq PO DAILY [facility] Last Admin: 09/20/16 10:46 Dose: 20 meq Quetiapine Fumarate (Seroquel) 300 mg PO HS [facility] Last Admin: 09/20/16 22:01 Dose: 300 mg Thiamine HCl (Vitamin B1 Tab) 100 mg PO DAILY [facility] Last Admin: 09/20/16 10:47 Dose: 100 mg Valproate Sodium (Depakene Oral Soln) 500 mg PO BID [facility] Last Admin: 09/20/16 18:07 Dose: 500 mg - Labs Labs: 09/21/16 07:51 PT 12.2 SECONDS (9.7-12.2) 09/19/16 11:08 INR 1.1 09/19/16 11:08 APTT 29 SECONDS (21-34) 09/19/16 11:08 Assessment and Plan - Assessment and Plan (Free Text) Assessment: Bipolar disorder Nausea, vomiting - resolved Plan: - Advance diet slowly as tolerated - Await EGD biopsy results - Begin once daily oral PPI therapy - Anti-emetic therapy PRN - No ongoing GI issues, will sign off case. Further plan as per medical team. Please reconsult as necessary, thank you.
[2016-09-21 08:56] LABS: CHLORIDE 105 mmol/L (98-107); POTASSIUM 3.6 mmol/L (3.6-5.2); SODIUM 138 mmol/L (132-148)
[2016-09-21 08:58] LABS: GFR AFRICAN-AMERICAN > 60
[2016-09-21 08:59] LABS: BLOOD UREA NITROGEN < 2 mg/dL (7-17); CALCIUM 7.1 mg/dl (8.6-10.4); CARBON DIOXIDE 24 mmol/L (22-30); GLUCOSE,RANDOM 75 mg/dL (65-105)
[2016-09-21 10:03] VITALS: RESP 20
[2016-09-21] MEDS: Sodium Chloride 0.9% 1,000 ML IV SCH ×2 (10:38→20:18)
[2016-09-21] MEDS: Divalproex 250 mg DR Tab PO SCH ×2 (10:39→21:16)
[2016-09-21] MEDS: Pantoprazole 40 mg EC Tab PO SCH (10:41)
[2016-09-21] MEDS: Valproic Acid 250 mg/5 ml UD Cup PO SCH ×2 (10:42→17:29)
--- NOTE | 2016-09-21 15:40 | CP.PCM.PN ---
Addendum entered and electronically signed by Arely Barnes DO 09/21/16 15:41: Error: Depakote dose was not changed, Dilantin dose was changed to 500mg PO BID Original Note: <Arely Barnes - Last Filed: 09/21/16 15:37> Subjective - Date & Time of Evaluation Date of Evaluation: 09/21/16 Time of Evaluation: 14:00 - Subjective Subjective: Internal medicine progress note for Dr. Culver-Arely Barnes, PGY-1 Pt S & E at bedside. Pt reports slept well w/o any instances of nausea or vomiting, no episodes of weakness. Admits to SOB overnight, requiring O2 - has had previously a few yrs ago. Denies any POLANCO, F, C, cough, SOB, CP, palpitations, N/V/D/C lightheadedness , wkns, or cataplexy. Is now tolerating regular diet. Objective - Vital Signs/Intake and Output Vital Signs (last 24 hours): Temp Pulse Resp BP Pulse Ox 97.1 F L 73 20 102/73 100 09/21/16 09:50 09/21/16 09:50 09/21/16 09:50 09/21/16 09:50 09/21/16 09:50 Intake and Output: 09/21/16 09/21/16 06:59 18:59 Intake Total 1200 Balance 1200 - Medications Medications: Current Medications Acetaminophen (Tylenol 325mg Tab) 650 mg PO Q6 PRN PRN Reason: Headache Clonazepam (Klonopin) 0.5 mg PO BID [facility] Last Admin: 09/21/16 10:50 Dose: 0.5 mg Cyanocobalamin (Vitamin B12 1000 Mcg Tab) 1,000 mcg PO DAILY [facility] Last Admin: 09/21/16 12:05 Dose: 1,000 mcg Divalproex Sodium (Depakote Dr) 250 mg PO HS [facility] Last Admin: 09/20/16 22:02 Dose: 250 mg Divalproex Sodium (Depakote Dr) 750 mg PO QAM [facility] Last Admin: 09/21/16 10:39 Dose: 750 mg Folic Acid (Folic Acid) 1 mg PO DAILY [facility] Last Admin: 09/21/16 10:41 Dose: 1 mg Hydroxyzine HCl (Atarax) 50 mg PO QID PRN PRN Reason: Agitation Last Admin: 09/21/16 10:41 Dose: 50 mg Sodium Chloride (Sodium Chloride 0.9%) 1,000 mls @ 100 mls/hr IV .Q10H [facility] Last Admin: 09/21/16 10:38 Dose: 100 mls/hr Ondansetron HCl (Zofran Inj) 4 mg IVP Q6 PRN PRN Reason: Nausea/Vomiting Last Admin: 09/19/16 17:20 Dose: 4 mg Pantoprazole Sodium (Protonix Ec Tab) 40 mg PO DAILY [facility] Last Admin: 09/21/16 10:41 Dose: 40 mg Phenytoin Sodium (Dilantin) 100 mg PO TID [facility] Last Admin: 09/21/16 13:34 Dose: 100 mg Pneumococcal Polyvalent Vaccine (Pneumovax 23 Vaccine) 0.5 ml IM .ONCE ONE Stop: 09/22/16 10:01 Quetiapine Fumarate (Seroquel) 300 mg PO HS [facility] Last Admin: 09/20/16 22:01 Dose: 300 mg Thiamine HCl (Vitamin B1 Tab) 100 mg PO DAILY [facility] Last Admin: 09/21/16 10:41 Dose: 100 mg Valproate Sodium (Depakene Oral Soln) 500 mg PO BID [facility] Last Admin: 09/21/16 10:42 Dose: 500 mg - Labs Labs: 09/21/16 07:51 09/21/16 07:51 PT 12.2 SECONDS (9.7-12.2) 09/19/16 11:08 INR 1.1 09/19/16 11:08 APTT 29 SECONDS (21-34) 09/19/16 11:08 - Constitutional Appears: Non-toxic, No Acute Distress, Cachectic - Head Exam Head Exam: ATRAUMATIC, NORMAL INSPECTION, NORMOCEPHALIC - Eye Exam Eye Exam: EOMI, Normal appearance, PERRL Pupil Exam: NORMAL ACCOMODATION, PERRL - ENT Exam ENT Exam: Mucous Membranes Moist, Normal Exam - Neck Exam Neck Exam: Full ROM, Normal Inspection. absent: Lymphadenopathy - Respiratory Exam Respiratory Exam: Clear to Ausculation Bilateral, NORMAL BREATHING PATTERN - Cardiovascular Exam Cardiovascular Exam: REGULAR RHYTHM, +S1, +S2. absent: Murmur - GI/Abdominal Exam GI & Abdominal Exam: Soft, Normal Bowel Sounds. absent: Tenderness - Extremities Exam Extremities Exam: Full ROM, Normal Capillary Refill, Normal Inspection. absent : Joint Swelling, Pedal Edema - Back Exam Back Exam: NORMAL INSPECTION - Neurological Exam Neurological Exam: Alert, Awake, CN II-XII Intact, Oriented x3 - Psychiatric Exam Psychiatric exam: Normal Affect, Normal Mood - Skin Skin Exam: Dry, Intact, Warm. 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 If symptoms persist, upper endoscopy can be considered. EGD w/findings of small plaque in mid 1/3rd of espohagus- took bx, diffuse mod inflammation of stomach, mild inflammation of 1st part of duodenum- recs for PTX 40mg x 1mo, signed off FU JUAN Started supplements Transaminitis/abdominal pain- resolved Ab U/S with Prominent liver measuring 19.1 centimeters with diffuse increased echogenicity suggestive for fatty infiltration versus diffuse hepatic parenchymal disease. Clinical correlation. Limited visualization of the pancreas. Clinical correlation CT ab w/Hepatic steatosis. Hepatomegaly. Cholelithiasis. Small hiatal hernia/ distal esophageal wall thickening. Bilateral breast prosthesis. GI following- signed off Hypomagnesemia Mg 1.4 started on supplements Monitor Hypophosphatemia- resolved Phos 2.5 from 2.4 Monitor Headache Tylenol PRN hx Bipolar d/o Restarted home med: Seroquel 300mg PO HS Psych consulted- Chepe- recs for Klonopin, changed dosage of Depakote, Atarax Hx Seizure d/o Cont home meds: Dilantin 600mg Q12H, Depakote 500mg BID as per psych GI/DVT ppx Pepcid changed to Protonix as per GI SCDs Ambulate Dispo cont med mgmt Activtiy as eleazar Ad araseli OOBTC Seizure precautions Reg soft diet Monitor K FU JUAN If JUAN pos- order full lupus W/U = SL-70, Anti-ramires antibodies, etc DW attending <Eusebio Culver - Last Filed: 09/21/16 15:53> Objective - Vital Signs/Intake and Output Vital Signs (last 24 hours): Temp Pulse Resp BP Pulse Ox 97.1 F L 73 20 102/73 100 09/21/16 09:50 09/21/16 09:50 09/21/16 09:50 09/21/16 09:50 09/21/16 09:50 Intake and Output: 09/21/16 09/21/16 06:59 18:59 Intake Total 1200 Balance 1200 - Medications Medications: Current Medications Acetaminophen (Tylenol 325mg Tab) 650 mg PO Q6 PRN PRN Reason: Headache Clonazepam (Klonopin) 0.5 mg PO BID [facility] Last Admin: 09/21/16 10:50 Dose: 0.5 mg Cyanocobalamin (Vitamin B12 1000 Mcg Tab) 1,000 mcg PO DAILY [facility] Last Admin: 09/21/16 12:05 Dose: 1,000 mcg Divalproex Sodium (Depakote Dr) 250 mg PO HS [facility] Last Admin: 09/20/16 22:02 Dose: 250 mg Divalproex Sodium (Depakote Dr) 750 mg PO QAM [facility] Last Admin: 09/21/16 10:39 Dose: 750 mg Folic Acid (Folic Acid) 1 mg PO DAILY [facility] Last Admin: 09/21/16 10:41 Dose: 1 mg Hydroxyzine HCl (Atarax) 50 mg PO QID PRN PRN Reason: Agitation Last Admin: 09/21/16 10:41 Dose: 50 mg Sodium Chloride (Sodium Chloride 0.9%) 1,000 mls @ 100 mls/hr IV .Q10H [facility] Last Admin: 09/21/16 10:38 Dose: 100 mls/hr Ondansetron HCl (Zofran Inj) 4 mg IVP Q6 PRN PRN Reason: Nausea/Vomiting Last Admin: 09/19/16 17:20 Dose: 4 mg Pantoprazole Sodium (Protonix Ec Tab) 40 mg PO DAILY [facility] Last Admin: 09/21/16 10:41 Dose: 40 mg Phenytoin Sodium (Dilantin) 100 mg PO TID [facility] Last Admin: 09/21/16 13:34 Dose: 100 mg Pneumococcal Polyvalent Vaccine (Pneumovax 23 Vaccine) 0.5 ml IM .ONCE ONE Stop: 09/22/16 10:01 Quetiapine Fumarate (Seroquel) 300 mg PO HS [facility] Last Admin: 09/20/16 22:01 Dose: 300 mg Thiamine HCl (Vitamin B1 Tab) 100 mg PO DAILY [facility] Last Admin: 09/21/16 10:41 Dose: 100 mg Valproate Sodium (Depakene Oral Soln) 500 mg PO BID [facility] Last Admin: 09/21/16 10:42 Dose: 500 mg - Labs Labs: 09/21/16 07:51 09/21/16 07:51 PT 12.2 SECONDS (9.7-12.2) 09/19/16 11:08 INR 1.1 09/19/16 11:08 APTT 29 SECONDS (21-34) 09/19/16 11:08 Attending/Attestation - Attestation I have personally seen and examined this patient.: Yes I have fully participated in the care of the patient.: Yes I have reviewed all pertinent clinical information, including history, physical exam and plan: Yes Notes (Text): Medical attending: Patient was seen and examined by me, agree with the above note by the medical physiologist. The patient explained that she was feeling quite well when we saw her, earlier in the day she had EGD done, and afterwards she was given a diet and she's been tolerating her diet quite well. Her potassium is now within normal limits and the bicarbonate is also stable. As mentioned before when she came in she had very severe metabolic alkalosis as well as very severe hypokalemia The patient explains that she's feeling okay she's going to the bathroom okay also ambulating well. Today when I explained to the patient was that were cannot not give any potassium supplements and were to see how her blood work looks like tomorrow. Hopefully if her potassium remained stable and she maintains her diet without vomiting or having abdominal pain we'll consider discharging the patient This being said we did order an JUAN, just in case that there could be some sort of a autoimmune disease process. She does have she tells us a family history of lupus. And on her face it's almost as if she has a discoid Maller-like rash on the front of her face Social the JUAN is positive what we'll do is tomorrow we will acquire a lot of the autoimmune testing but most most this will have to be sent out labs. So she probably had to follow-up with us in the medical clinic thank you Eusebio Culver
--- NOTE | 2016-09-21 23:27 | PCM.PYCHPN ---
Psychiatric Progress Note - Psychiatric Progress Note Patient seen today, length of contact: 15 min Patient Chief Complaint: "I'm fine" Problems Identified/Issues Discussed: The pt is seen, chart reviewed and case discussed She is uncooperative, evasive and easily annoyed, irate. She is aware of this mood but claims it is now "better" (?) b/c she is now on klonopin. No SI, HI or del/halluc. Support given Medication Change: Yes (depakote needs to be adjusted) Medical Record Reviewed: Yes Mental Status Examination - Cognitive Function Orientation: Person, Place, Situation, Time Memory: Intact Attention: WNL Concentration: WNL Association: WNL Fund of Knowledge: WNL - Mood Mood: Anxious - Affect Affect: Blunted - Speech Speech: Appropriate - Formal Thought Process Formal Thought Process: No Impairment - Suicidal Ideation Suicidal Ideation: No - Homicidal Ideation Homicidal Ideation: No Goal/Treatment Plan - Goal/Treatment Plan Need for Continued Stay: Other Progress Toward Problem(s) and Goals/Treatment Plan: Continue meds, but adjust depakote (valproic acid, valproate, divalproex...) Support and psychoed given After care by JOHN (has a psychiatrist, she claims) psych will sign off
[2016-09-22] MEDS: Sodium Chloride 0.9% 1,000 ML IV SCH (05:57)
--- NOTE | 2016-09-22 07:28 | CP.PCM.PN ---
Subjective - Date & Time of Evaluation Date of Evaluation: 09/22/16 Time of Evaluation: 07:23 Objective - Vital Signs/Intake and Output Vital Signs (last 24 hours): Temp Pulse Resp BP Pulse Ox 97.6 F 76 20 91/60 L 99 09/22/16 04:00 09/22/16 05:22 09/22/16 04:00 09/22/16 04:00 09/22/16 04:00 Intake and Output: 09/22/16 09/22/16 06:59 18:59 Intake Total 1040 Balance 1040 - Medications Medications: Current Medications Acetaminophen (Tylenol 325mg Tab) 650 mg PO Q6 PRN PRN Reason: Headache Clonazepam (Klonopin) 0.5 mg PO BID [facility] Last Admin: 09/21/16 17:29 Dose: 0.5 mg Cyanocobalamin (Vitamin B12 1000 Mcg Tab) 1,000 mcg PO DAILY [facility] Last Admin: 09/21/16 12:05 Dose: 1,000 mcg Divalproex Sodium (Depakote Dr) 250 mg PO HS [facility] Last Admin: 09/21/16 21:16 Dose: 250 mg Divalproex Sodium (Depakote Dr) 750 mg PO QAM [facility] Last Admin: 09/21/16 10:39 Dose: 750 mg Folic Acid (Folic Acid) 1 mg PO DAILY [facility] Last Admin: 09/21/16 10:41 Dose: 1 mg Hydroxyzine HCl (Atarax) 50 mg PO QID PRN PRN Reason: Agitation Last Admin: 09/21/16 10:41 Dose: 50 mg Sodium Chloride (Sodium Chloride 0.9%) 1,000 mls @ 100 mls/hr IV .Q10H [facility] Last Admin: 09/22/16 05:57 Dose: 100 mls/hr Ondansetron HCl (Zofran Inj) 4 mg IVP Q6 PRN PRN Reason: Nausea/Vomiting Last Admin: 09/19/16 17:20 Dose: 4 mg Pantoprazole Sodium (Protonix Ec Tab) 40 mg PO DAILY [facility] Last Admin: 09/21/16 10:41 Dose: 40 mg Phenytoin Sodium (Dilantin) 100 mg PO TID [facility] Last Admin: 09/21/16 17:29 Dose: 100 mg Pneumococcal Polyvalent Vaccine (Pneumovax 23 Vaccine) 0.5 ml IM .ONCE ONE Stop: 09/22/16 10:01 Quetiapine Fumarate (Seroquel) 300 mg PO HS [facility] Last Admin: 09/21/16 21:15 Dose: 300 mg Thiamine HCl (Vitamin B1 Tab) 100 mg PO DAILY [facility] Last Admin: 09/21/16 10:41 Dose: 100 mg Valproate Sodium (Depakene Oral Soln) 500 mg PO BID [facility] Last Admin: 09/21/16 17:29 Dose: 500 mg - Labs Labs: 09/21/16 07:51 09/21/16 07:51 PT 12.2 SECONDS (9.7-12.2) 09/19/16 11:08 INR 1.1 09/19/16 11:08 APTT 29 SECONDS (21-34) 09/19/16 11:08 Assessment and Plan - Assessment and Plan (Free Text) Assessment: Metabolic acidosis with Severe hypokalemia and hypochloremia due to intractable vomiting - resolved K 3.6 from 3.3 Chloride 105 from 104 Bicarb 24 from 23 MCV 110.3 from 108.5 Cont Folic Acid 1mg PO Daily Cont K-Dur 20mEq daily- d/c'd Cont NS + Kcl 10mEq @150cc/hr- d/c'd Started NS@100 Cont Thiamine 100mg PO Daily Cont Vitamin B12 1,000 mcg PO daily Zofran 4mg Q6H PRN U/A neg Beta HcG neg UDS neg 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 If symptoms persist, upper endoscopy can be considered. EGD w/findings of small plaque in mid 1/3rd of espohagus- took bx, diffuse mod inflammation of stomach, mild inflammation of 1st part of duodenum- recs for PTX 40mg x 1mo, signed off FU JUAN Started supplements Transaminitis/abdominal pain- resolved Ab U/S with Prominent liver measuring 19.1 centimeters with diffuse increased echogenicity suggestive for fatty infiltration versus diffuse hepatic parenchymal disease. Clinical correlation. Limited visualization of the pancreas. Clinical correlation CT ab w/Hepatic steatosis. Hepatomegaly. Cholelithiasis. Small hiatal hernia/ distal esophageal wall thickening. Bilateral breast prosthesis. GI following- signed off Hypomagnesemia Mg 1.4 started on supplements Monitor Hypophosphatemia- resolved Phos 2.5 from 2.4 Monitor Headache Tylenol PRN hx Bipolar d/o Restarted home med: Seroquel 300mg PO HS Psych consulted- Chepe- recs for Klonopin, changed dosage of Depakote, Atarax Hx Seizure d/o Dilantin 100 mg po TID, Depakote 250 mg po HS and 750 mg po QAM GI/DVT ppx Pepcid changed to Protonix as per GI SCDs Ambulate Dispo cont med mgmt Activtiy as eleazar Ad araseli OOBTC Seizure precautions Reg soft diet Monitor K FU JUAN If JUAN pos- order full lupus W/U = SL-70, Anti-ramires antibodies, etc
[2016-09-22 07:46] LABS: BASO # 0.1 K/uL (0.0-0.2); EOS # 0.1 K/uL (0.0-0.7); HEMATOCRIT 32.1 % (34.0-47.0); LYMPH # 1.4 K/uL (1.0-4.3); LYMPH % 36.8 % (20.0-40.0); MEAN CELL VOLUME 109.1 fL (81.0-99.0); MEAN CORPUSCULAR HEMOGLOBIN 36.4 pg (27.0-31.0); MEAN CORPUSCULAR HGB CONC 33.4 g/dL (33.0-37.0); MEAN PLATELET VOLUME 7.6 fL (7.2-11.7); MONO # 0.3 K/uL (0.0-0.8); MONO % 8.8 % (0.0-10.0); RED CELL DISTRIBUTION WIDTH 21.2 % (11.5-14.5); WHITE BLOOD COUNT 3.7 K/uL (4.8-10.8)
[2016-09-22 07:49] LABS: CHLORIDE 103 mmol/L (98-107); POTASSIUM 3.2 mmol/L (3.6-5.2); SODIUM 136 mmol/L (132-148)
[2016-09-22 07:51] LABS: AST/SGOT 99 U/L (14-36); BILIRUBIN,TOTAL 0.5 mg/dL (0.2-1.3); CARBON DIOXIDE 26 mmol/L (22-30); GFR AFRICAN-AMERICAN > 60
[2016-09-22 07:52] LABS: ALB/GLOB RATIO 0.8 (1.0-2.1); ALKALINE PHOSPHATASE 80 U/L (38-126); ALT/SGPT 48 U/L (9-52); CALCIUM 6.9 mg/dl (8.6-10.4); GLUCOSE,RANDOM 78 mg/dL (65-105); MAGNESIUM 1.3 mg/dL (1.6-2.3); PHOSPHOROUS 3.4 mg/dL (2.5-4.5); TOTAL PROTEIN 3.9 g/dL (6.3-8.3)
[2016-09-22 08:07] VITALS: TEMP 97.5
[2016-09-22 08:31] LABS: BLOOD UREA NITROGEN < 2 mg/dL (7-17)
[2016-09-22] MEDS ORDERED: Potassium Chloride 20 mEq ER Tab PO STA (09:32)
[2016-09-22] MEDS: Pantoprazole 40 mg EC Tab PO SCH (09:35)
[2016-09-22] MEDS: Valproic Acid 250 mg/5 ml UD Cup PO SCH (09:36)
[2016-09-22] MEDS: Divalproex 250 mg DR Tab PO SCH (09:38)
[2016-09-22] MEDS ORDERED: Pneumococcal 23-Valent Vaccine IM ONE (10:00)
[2016-09-22 17:46] VITALS: BP 100/69; PULSE 57; O2SAT 100
--- NOTE | 2016-09-22 19:54 | CP.PCM.DIS ---
<Rossy Campoverde - Last Filed: 09/22/16 19:50> Provider - Provider Date of Admission: 09/19/16 11:14 Attending physician: Eusebio Culver DO Primary care physician: Dr. Garza Consults: Psych: Dr. Mo GI: Dr. Becker/Dr. Orozco Time Spent in preparation of Discharge (in minutes): 31 Diagnosis - Discharge Diagnosis (1) Metabolic alkalosis Status: Acute Comment: please see hospital course (2) Intractable vomiting Status: Acute Comment: please see hospital course (3) Hypokalemia Status: Acute Comment: please see hospital course (4) Hypochloremia Status: Acute Comment: please see hospital course (5) Transaminitis Status: Acute Comment: please see hospital course (6) Bipolar disorder Status: Acute Comment: please see hospital course (7) Seizure disorder Status: Acute Comment: please see hospital course Hospital Course - Lab Results Lab Results: Most Recent Lab Values WBC 3.7 K/uL (4.8-10.8) L 09/22/16 07:17 RBC 2.94 Mil/uL (3.80-5.20) L 09/22/16 07:17 Hgb 10.7 g/dL (11.0-16.0) L 09/22/16 07:17 Hct 32.1 % (34.0-47.0) L 09/22/16 07:17 MCV 109.1 fL (81.0-99.0) H 09/22/16 07:17 MCH 36.4 pg (27.0-31.0) H 09/22/16 07:17 MCHC 33.4 g/dL (33.0-37.0) 09/22/16 07:17 RDW 21.2 % (11.5-14.5) H 09/22/16 07:17 Plt Count 261 K/uL (130-400) 09/22/16 07:17 MPV 7.6 fL (7.2-11.7) 09/22/16 07:17 Neut % (Auto) 49.4 % (50.0-75.0) L 09/22/16 07:17 Lymph % (Auto) 36.8 % (20.0-40.0) 09/22/16 07:17 Robeson % (Auto) 8.8 % (0.0-10.0) 09/22/16 07:17 Eos % (Auto) 3.0 % (0.0-4.0) 09/22/16 07:17 Baso % (Auto) 2.0 % (0.0-2.0) 09/22/16 07:17 Neut # 1.8 K/uL (1.8-7.0) 09/22/16 07: Lymph # 1.4 K/uL (1.0-4.3) 09/22/16 07:17 Robeson # 0.3 K/uL (0.0-0.8) 09/22/16 07:17 Eos # 0.1 K/uL (0.0-0.7) 09/22/16 07: Baso # 0.1 K/uL (0.0-0.2) 09/22/16 07:17 Neutrophils % (Manual) 76 % (50-75) H 09/19/16 09:45 Band Neutrophils % 5 % (0-2) H 09/19/16 09:45 Lymphocytes % (Manual) 8 % (20-40) L 09/19/16 09:45 Reactive Lymphs % 1 % (0-0) H 09/19/16 09:45 Monocytes % (Manual) 9 % (0-10) 09/19/16 09:45 Basophils % (Manual) 1 % (0-2) 09/19/16 09:45 Differential Comment 09/20/16 07:20 Platelet Estimate Normal (NORMAL) 09/19/16 09:45 Large Platelets Present 09/19/16 09:45 Anisocytosis (manual) Moderate 09/19/16 09:45 Macrocytosis (manual) Moderate 09/19/16 09:45 Target Cells Slight 09/19/16 09:45 Stomatocytes Slight 09/19/16 09:45 PT 12.2 SECONDS (9.7-12.2) 09/19/16 11:08 INR 1.1 09/19/16 11:08 APTT 29 SECONDS (21-34) 09/19/16 11:08 pO2 20 mm/Hg (30-55) L 09/19/16 11:03 VBG pH 7.46 (7.32-7.43) H 09/19/16 11:03 VBG pCO2 53 mmHg (40-60) 09/19/16 11:03 VBG HCO3 32.5 mmol/L 09/19/16 11:03 VBG Total CO2 39.3 mmol/L (22-28) H 09/19/16 11:03 VBG O2 Sat (Calc) 31.9 % (40-65) L 09/19/16 11:03 VBG Base Excess 11.8 mmol/L (0.0-2.0) H 09/19/16 11:03 VBG Potassium 1.7 mmol/L (3.6-5.2) L* 09/19/16 11:03 Sodium 135.0 mmol/l (132-148) 09/19/16 11:03 Chloride 95.0 mmol/L (98-107) L 09/19/16 11:03 Glucose 82 mg/dl (65-105) 09/19/16 11:03 Lactate 0.8 mmol/L (0.7-2.1) 09/19/16 11:03 Crit Value Called To Dr. alarcon 09/19/16 11:03 Crit Value Called By Barry kumar 09/19/16 11:03 Crit Value Read Back Y 09/19/16 11:03 Blood Gas Notified Time 1106 09/19/16 11:03 Sodium 136 mmol/L (132-148) 09/22/16 07:17 Potassium 3.2 mmol/L (3.6-5.2) L 09/22/16 07:17 Chloride 103 mmol/L (98-107) 09/22/16 07:17 Carbon Dioxide 26 mmol/L (22-30) 09/22/16 07:17 Anion Gap 10 (10-20) 09/22/16 07:17 BUN < 2 mg/dL (7-17) L 09/22/16 07:17 Creatinine 0.4 MG/DL (0.7-1.2) L 09/22/16 07:17 Est GFR ( Amer) > 60 09/22/16 07:17 Est GFR (Non-Af Amer) > 60 09/22/16 07:17 Random Glucose 78 mg/dL (65-105) 09/22/16 07:17 Calcium 6.9 mg/dl (8.6-10.4) L 09/22/16 07:17 Phosphorus 3.4 mg/dL (2.5-4.5) 09/22/16 07:17 Magnesium 1.3 mg/dL (1.6-2.3) L 09/22/16 07:17 Total Bilirubin 0.5 mg/dL (0.2-1.3) 09/22/16 07:17 AST 99 U/L (14-36) H D 09/22/16 07:17 ALT 48 U/L (9-52) 09/22/16 07:17 Alkaline Phosphatase 80 U/L (38-126) 09/22/16 07:17 Total Creatine Kinase 48 U/L (30-135) 09/19/16 11:08 CK-MB (Mass) 1.71 ng/mL (0.0-3.38) 09/19/16 11:08 Troponin I 0.0290 ng/mL (0.00-0.120) 09/19/16 11:08 Total Protein 3.9 g/dL (6.3-8.3) L 09/22/16 07:17 Albumin 1.7 g/dL (3.5-5.0) L 09/22/16 07:17 Globulin 2.2 gm/dL (2.2-3.9) 09/22/16 07:17 Albumin/Globulin Ratio 0.8 (1.0-2.1) L 09/22/16 07:17 Lipase 94 U/L (23-300) 09/19/16 09:45 Vitamin B12 > 1000 pg/mL (239-931) H 09/20/16 14:47 Folate 4.7 ng/mL 09/20/16 14:47 TSH 3rd Generation 0.93 mIU/L (0.46-4.68) 09/20/16 14:47 Venous Blood Potassium 1.7 mmol/L (3.6-5.2) L* 09/19/16 11:03 Urine Color Yellow (YELLOW) 09/19/16 11:24 Urine Clarity Clear (Clear) 09/19/16 11:24 Urine pH 9.0 (5.0-8.0) 09/19/16 11:24 Ur Specific [place] 1.002 (1.003-1.030) L 09/19/16 11:24 Urine Protein Negative mg/dL (NEGATIVE) 09/19/16 11:24 Urine Glucose (UA) Normal mg/dL (Normal) 09/19/16 11:24 Urine Ketones Negative mg/dL (NEGATIVE) 09/19/16 11:24 Urine Blood Negative (NEGATIVE) 09/19/16 11:24 Urine Nitrate Negative (NEGATIVE) 09/19/16 11:24 Urine Bilirubin Negative (NEGATIVE) 09/19/16 11:24 Urine Urobilinogen Normal mg/dL (0.2-1.0) 09/19/16 11:24 Ur Leukocyte Esterase Neg Frank/uL (Negative) 09/19/16 11:24 Urine WBC (Auto) < 1 /hpf (0-5) 09/19/16 11:24 Urine RBC (Auto) < 1 /hpf (0-3) 09/19/16 11:24 Ur Squamous Epith Cells 1 /hpf (0-5) 09/19/16 11:24 Urine Bacteria Rare (<OCC) 09/19/16 11:24 Urine HCG, Qual Negative (NEGATIVE) 09/21/16 08:18 Urine Opiates Screen Negative (NEGATIVE) 09/19/16 11:24 Urine Methadone Screen Negative (NEGATIVE) 09/19/16 11:24 Ur Barbiturates Screen Negative (NEGATIVE) 09/19/16 11:24 Ur Phencyclidine Scrn Negative (NEGATIVE) 09/19/16 11:24 Ur Amphetamines Screen Negative (NEGATIVE) 09/19/16 11:24 U Benzodiazepines Scrn Negative (NEGATIVE) 09/19/16 11:24 U Oth Cocaine Metabols Negative (NEGATIVE) 09/19/16 11:24 U Cannabinoids Screen Negative (NEGATIVE) 09/19/16 11:24 Alcohol, Quantitative < 10 mg/dl (0-10) 09/19/16 09:45 JUAN 6 Profile Negative (NEGATIVE) 09/20/16 16:50 - Hospital Course Hospital Course: On hospital course: 35 F w/PMH sig for bipolar d/o, seizure d/o, hx breast and uterine CA admitted for intractable nausea and vomiting x 1-1.5 mos. Pt states that 1-1.5 mo ago she got "the flu", thought it would go away. Emesis occurs average 10x/day, occasionally bilious, non bloody, projectile, incited by all PO intake with subsequent wt loss of approx 20lbs/1 mo. Admits to fatigue, weakness, palpitations, abdominal pain only with emesis (severe, sharp, non radiating, epigastric, aggravated by movement/PO intake), Chest pressure with emesis, occasional headache with strong vomiting, sore throat from vomiting, B/L LE cramps. No alleviating factors identified. Pt did not try to go to PMD - mother recently, was not taking meds, did not want to go. Denies ever having before, vision changes, changes in bowel or bladder habits, cough, rhinorrhea, congestion. PMH: Bipolar d/o, seizure d/o, Hx breast CA (age 25), Hx uterine CA (age 27) PSH: B/L Mastectomy w/reconstruction (2016), uterine tumor resection with curettage (2008), uterine curettage w/bx (2009), LEEP w/RAJESH 3 (2013), appendectomy (1996) All: Denies SH: Admits to tobacco use #3/day x 6 mos, former hx of 1ppd x 15 yrs, denies recent ETOH use (last drink 3 yrs ago), denies illicit drugs FH: M- 05/2017, maternal grandmother and maternal aunt with breast CA in 70' s and 50's PMD: Cardiello (sp?) Home meds: Dilantin, Depakote, Seroquel [facility]: [facility] During hospital course, the following procedures/imaging were done: Abdominal ultrasound (09/19/16): Prominent liver measuring 19.1 cm with diffuse increased echogenicity suggestive for fatty infiltration vs diffuse hepatic parenchymal disease. Limited visualization of pancreas EKG (09/19/16): Normal sinus rhythm. ST&T wave abnormality, consider lateral ischemia or digoxin effect CT chest/abdomen/pelvis (09/19/16): Hepatic steatosis. Hepatomegaly. Cholelithiasis. Small histal hernia/distal esophageal wall thickening. Esophagus x-ray (09/20/16): No stricture or mass lesion identified. Endoscopy (09/21/16): Esophageal plaque, gastritis, duodenitis (1) Metabolic alkalosis with severe hypokalemia and hypochloremia due to intractable vomiting: Upon admission, patient's potassium was 1.8, chloride 83, bicarbonate 40, and MCV 106.1 Patient was given 40mEq potassium PO and 20mEq potassium IV x2 in ED. Patient was started on folic acid 1mg PO daily, thiamine 100mg PO daily, vitamin B12 1000mcg PO daily, K-dur 2-mEq daily, and NS + KCl 10mEq @150cc/hr. Patient was prescribed Zofran 4mg Q6 PRN for nausea. Dietitian was consulted due to poor metabolic and nutritional status and was put on clear liquid diet. Gastroenterology was consulted. After 1 day, potassium was 2.8, chloride was 103, bicarb was 27, and MCV was 108.5. By discharge potassium was 3.2, chloride was 103, bicarb was 26, and MCV was 109.1. JUAN was negative. Patient's nausea, vomiting, and weakness were significantly improved upon discharge. (2) Hypophosphatemia: After 1 day, phospohorus was low at 2.4. Level was monitored and increased to 3.4 upon discharge. (3) Hypomagnesemia: Magnesium was low at 1.4 on 09/21/16 and monitored. (4) Transaminitis/abdominal pain: Upon admission, patient's AST was 135, ALT 55 , and alk phos 136. Abdominal ultrasound showed prominent liver with diffuse increased echogenicity, suggetive for fatty infiltration. CT abdomen showed hepatic steatosis, hepatomegaly, cholelithiasis, and small hiatal hernia/distal esophageal wall thickening. (5) Headache: Patient was prescribed Tylenol 650mg PO Q6H PRN for headache. (6) History of bipolar disorder: Patient was restarted on home medication Seroquel 300mg PO HS. Psychiatry was consulted.History of seizure disorder. Patient was restarted on home medications Dilantin 600mg Q12H, Depakote 750mg PO QAM + 250mg PO HS. Dilantin was changed to 100 PO TID. (7) Prophylactic measures: Pepcid, SCDs, and ambulation During the hospital course, the following specialists were consulted: Gastroenterology, Dr. Orozco/Dr. Becker: Recommended CT chest/abdomen/pelvis without contrast because of nausea. Recommended IV hydration, electrolyte repletion, clear liquid diet, barium esophagram, possible endoscopic evaluation. After EGD, recommended daily oral PPI therapy for gastritis. Psychiatry, Dr. Mo: Recommended Depakote liquid 500mg BID, Klonopin 0.5mg PO BID, ativan 1mg PO Q6H PRN for bipolar disorder mixed severe with psychotic features Please note this is summary of hospital course. For full details, please see patient chart. Discharge instructions: Patient medically stable for discharge. Patient instructed to take the following prescriptions: Depakote 750 mg by mouth each morning Dilantin 100 mg by mouth three times daily Potassium Chloride 40 mEq tab by mouth daily for 7 days Klonopin 0.5 mg by mouth twice daily Pantoprazole 40 mg by mouth daily Seroquel 300 mg by mouth at night Please take [id number] folic acid and thiamine daily Patient instructed to establish care and follow-up at [facility] within one week of discharge from hospital. Patient instructed to follow-up with psychiatrist within one week after discharge from hospital. Patient instructed to return to the emergency department if symptoms recur. Patient given detailed instructions at bedside. Patient understands and agrees. PATIENT [facility] AN [facility] [address] [place] 9:30 AM - Date & Time of H&P Date of H&P: 09/19/16 Time of H&P: 12:57 Discharge Exam - Head Exam Head Exam: ATRAUMATIC, NORMAL INSPECTION, NORMOCEPHALIC - Eye Exam Eye Exam: EOMI Pupil Exam: PERRL - Neck Exam Neck exam: Full Rom - Respiratory Exam Respiratory Exam: Clear to PA & Lateral, NORMAL BREATHING PATTERN, UNREMARKABLE - Cardiovascular Exam Cardiovascular Exam: +S1, +S2 - GI/Abdominal Exam GI & Abdominal Exam: Normal Bowel Sounds, Unremarkable. absent: Distended, Firm - Extremities Exam Extremities exam: normal capillary refill, pedal pulses present - Neurological Exam Neurological exam: Alert, Oriented x3 - Psychiatric Exam Psychiatric exam: Normal Affect, Normal Mood - Skin Additional comments: malar erythema noted areas of hypopigmentation and hyperpigmentation present to forehead Discharge Plan - Discharge Medications Prescriptions: Phenytoin, Extended [Dilantin] 100 mg PO TID #90 cer Potassium Chloride [K-Dur 20 mEq ER Tab] 40 meq PO DAILY #7 tab clonazePAM [Klonopin] 0.5 mg PO BID #14 tab Pantoprazole [Protonix EC Tab] 40 mg PO DAILY #30 ect - Follow Up Plan Condition: GOOD Disposition: HOME/ ROUTINE Instructions: Clonazepam (By mouth), Phenytoin (By mouth), Potassium Supplement (By mouth), Pantoprazole (By mouth), Hypokalemia (DC), Upper Endoscopy (DC), Acute Nausea and Vomiting (DC) Additional Instructions: Patient medically stable for discharge. Patient instructed to take the following prescriptions: Depakote 750 mg by mouth each morning Dilantin 100 mg by mouth three times daily Potassium Chloride 40 mEq tab by mouth daily for 7 days Klonopin 0.5 mg by mouth twice daily Pantoprazole 40 mg by mouth daily Seroquel 300 mg by mouth at night Please take [id number] folic acid and thiamine daily Patient instructed to establish care and follow-up at [facility] within one week of discharge from hospital. Patient instructed to follow-up with psychiatrist within one week after discharge from hospital. Patient instructed to return to the emergency department if symptoms recur. Patient given detailed instructions at bedside. Patient understands and agrees. PATIENT HAS AN INTAKE [facility] [address] [place] [address] [facility] 09/28/9:30 AM Referrals: [facility] at [facility] [Outside] <Eusebio Culver - Last Filed: 09/23/16 07:58> Provider - Provider Date of Admission: 09/19/16 11:14 Attending physician: Eusebio Culver DO [facility] Course - Lab Results Lab Results: Most Recent Lab Values WBC 3.7 K/uL (4.8-10.8) L 09/22/16 07:17 RBC 2.94 Mil/uL (3.80-5.20) L 09/22/16 07:17 Hgb 10.7 g/dL (11.0-16.0) L 09/22/16 07:17 Hct 32.1 % (34.0-47.0) L 09/22/16 07:17 MCV 109.1 fL (81.0-99.0) H 09/22/16 07:17 MCH 36.4 pg (27.0-31.0) H 09/22/16 07:17 MCHC 33.4 g/dL (33.0-37.0) 09/22/16 07:17 RDW 21.2 % (11.5-14.5) H 09/22/16 07:17 Plt Count 261 K/uL (130-400) 09/22/16 07:17 MPV 7.6 fL (7.2-11.7) 09/22/16 07:17 Neut % (Auto) 49.4 % (50.0-75.0) L 09/22/16 07:17 Lymph % (Auto) 36.8 % (20.0-40.0) 09/22/16 07:17 Robeson % (Auto) 8.8 % (0.0-10.0) 09/22/16 07:17 Eos % (Auto) 3.0 % (0.0-4.0) 09/22/16 07:17 Baso % (Auto) 2.0 % (0.0-2.0) 09/22/16 07: Neut # 1.8 K/uL (1.8-7.0) 09/22/16 07:17 Lymph # 1.4 K/uL (1.0-4.3) 09/22/16 07:17 Robeson # 0.3 K/uL (0.0-0.8) 09/22/16 07:17 Eos # 0.1 K/uL (0.0-0.7) 09/22/16 07:17 Baso # 0.1 K/uL (0.0-0.2) 09/22/16 07:17 Neutrophils % (Manual) 76 % (50-75) H 09/19/16 09:45 Band Neutrophils % 5 % (0-2) H 09/19/16 09:45 Lymphocytes % (Manual) 8 % (20-40) L 09/19/16 09:45 Reactive Lymphs % 1 % (0-0) H 09/19/16 09:45 Monocytes % (Manual) 9 % (0-10) 09/19/16 09:45 Basophils % (Manual) 1 % (0-2) 09/19/16 09:45 Differential Comment 09/20/16 07:20 Platelet Estimate Normal (NORMAL) 09/19/16 09:45 Large Platelets Present 09/19/16 09:45 Anisocytosis (manual) Moderate 09/19/16 09:45 Macrocytosis (manual) Moderate 09/19/16 09:45 Target Cells Slight 09/19/16 09:45 Stomatocytes Slight 09/19/16 09:45 PT 12.2 SECONDS (9.7-12.2) 09/19/16 11:08 INR 1.1 09/19/16 11:08 APTT 29 SECONDS (21-34) 09/19/16 11:08 pO2 20 mm/Hg (30-55) L 09/19/16 11:03 VBG pH 7.46 (7.32-7.43) H 09/19/16 11:03 VBG pCO2 53 mmHg (40-60) 09/19/16 11:03 VBG HCO3 32.5 mmol/L 09/19/16 11:03 VBG Total CO2 39.3 mmol/L (22-28) H 09/19/16 11:03 VBG O2 Sat (Calc) 31.9 % (40-65) L 09/19/16 11:03 VBG Base Excess 11.8 mmol/L (0.0-2.0) H 09/19/16 11:03 VBG Potassium 1.7 mmol/L (3.6-5.2) L* 09/19/16 11:03 Sodium 135.0 mmol/l (132-148) 09/19/16 11:03 Chloride 95.0 mmol/L (98-107) L 09/19/16 11:03 Glucose 82 mg/dl (65-105) 09/19/16 11:03 Lactate 0.8 mmol/L (0.7-2.1) 09/19/16 11:03 Crit Value Called To Dr. alarcon 09/19/16 11:03 Crit Value Called By Barry kumar 09/19/16 11:03 Crit Value Read Back Y 09/19/16 11:03 Blood Gas Notified Time 1106 09/19/16 11:03 Sodium 136 mmol/L (132-148) 09/22/16 07:17 Potassium 3.2 mmol/L (3.6-5.2) L 09/22/16 07:17 Chloride 103 mmol/L (98-107) 09/22/16 07:17 Carbon Dioxide 26 mmol/L (22-30) 09/22/16 07:17 Anion Gap 10 (10-20) 09/22/16 07:17 BUN < 2 mg/dL (7-17) L 09/22/16 07:17 Creatinine 0.4 MG/DL (0.7-1.2) L 09/22/16 07:17 Est GFR ( Amer) > 60 09/22/16 07:17 Est GFR (Non-Af Amer) > 60 09/22/16 07:17 Random Glucose 78 mg/dL (65-105) 09/22/16 07:17 Calcium 6.9 mg/dl (8.6-10.4) L 09/22/16 07:17 Phosphorus 3.4 mg/dL (2.5-4.5) 09/22/16 07:17 Magnesium 1.3 mg/dL (1.6-2.3) L 09/22/16 07:17 Total Bilirubin 0.5 mg/dL (0.2-1.3) 09/22/16 07:17 AST 99 U/L (14-36) H D 09/22/16 07:17 ALT 48 U/L (9-52) 09/22/16 07:17 Alkaline Phosphatase 80 U/L (38-126) 09/22/16 07:17 Total Creatine Kinase 48 U/L (30-135) 09/19/16 11:08 CK-MB (Mass) 1.71 ng/mL (0.0-3.38) 09/19/16 11:08 Troponin I 0.0290 ng/mL (0.00-0.120) 09/19/16 11:08 Total Protein 3.9 g/dL (6.3-8.3) L 09/22/16 07:17 Albumin 1.7 g/dL (3.5-5.0) L 09/22/16 07:17 Globulin 2.2 gm/dL (2.2-3.9) 09/22/16 07:17 Albumin/Globulin Ratio 0.8 (1.0-2.1) L 09/22/16 07:17 Lipase 94 U/L (23-300) 09/19/16 09:45 Vitamin B12 > 1000 pg/mL (239-931) H 09/20/16 14:47 Folate 4.7 ng/mL 09/20/16 14:47 TSH 3rd Generation 0.93 mIU/L (0.46-4.68) 09/20/16 14:47 Venous Blood Potassium 1.7 mmol/L (3.6-5.2) L* 09/19/16 11:03 Urine Color Yellow (YELLOW) 09/19/16 11:24 Urine Clarity Clear (Clear) 09/19/16 11:24 Urine pH 9.0 (5.0-8.0) 09/19/16 11:24 Ur Specific [place] 1.002 (1.003-1.030) L 09/19/16 11:24 Urine Protein Negative mg/dL (NEGATIVE) 09/19/16 11:24 Urine Glucose (UA) Normal mg/dL (Normal) 09/19/16 11:24 Urine Ketones Negative mg/dL (NEGATIVE) 09/19/16 11:24 Urine Blood Negative (NEGATIVE) 09/19/16 11:24 Urine Nitrate Negative (NEGATIVE) 09/19/16 11:24 Urine Bilirubin Negative (NEGATIVE) 09/19/16 11:24 Urine Urobilinogen Normal mg/dL (0.2-1.0) 09/19/16 11:24 Ur Leukocyte Esterase Neg Frank/uL (Negative) 09/19/16 11:24 Urine WBC (Auto) < 1 /hpf (0-5) 09/19/16 11:24 Urine RBC (Auto) < 1 /hpf (0-3) 09/19/16 11:24 Ur Squamous Epith Cells 1 /hpf (0-5) 09/19/16 11:24 Urine Bacteria Rare (<OCC) 09/19/16 11:24 Urine HCG, Qual Negative (NEGATIVE) 09/21/16 08:18 Urine Opiates Screen Negative (NEGATIVE) 09/19/16 11:24 Urine Methadone Screen Negative (NEGATIVE) 09/19/16 11:24 Ur Barbiturates Screen Negative (NEGATIVE) 09/19/16 11:24 Ur Phencyclidine Scrn Negative (NEGATIVE) 09/19/16 11:24 Ur Amphetamines Screen Negative (NEGATIVE) 09/19/16 11:24 U Benzodiazepines Scrn Negative (NEGATIVE) 09/19/16 11:24 U Oth Cocaine Metabols Negative (NEGATIVE) 09/19/16 11:24 U Cannabinoids Screen Negative (NEGATIVE) 09/19/16 11:24 Alcohol, Quantitative < 10 mg/dl (0-10) 09/19/16 09:45 JUAN 6 Profile Negative (NEGATIVE) 09/20/16 16:50 Attending/Attestation - Attestation I have personally seen and examined this patient.: Yes I have fully participated in the care of the patient.: Yes I have reviewed all pertinent clinical information, including history, physical exam and plan: Yes Notes (Text): Medical attending: Patient was seen and examined by me, agrees the above note by medical staffing coordinator. The patient's potassium level stabilized, also the metabolic alkalosis that she had when she came in had also resolved as well. She had been given intravenous fluids with potassium supplements. She completed a barium swallow as well as EGD. She was tolerating a diet, she was eating and drinking without vomiting. We explained to her that she still is malnourished and needs to continue to eat. Because of her facial malar discoid like rash appearance as well as a family history of possible lupus, we ordered an JUAN and then were prepared to order DS DNA, Anti Alonzo, SCL 70 etc etc - however the JUAN returned and was negative. Reguardless we emphasized to the patient she needs to follow up in the [facility] for check ups - in particular her K levels. thank you Eusebio Culver
== END 2016-09-22 17:47 | disposition home or self-care (01) | DRG 296 ==
LOC: C.ER 08:30 → C.9E 11:14 → C.6T 13:19
PROVIDERS: ADMIT Hospitalist; ATTEND Hospitalist
PROC: 0DB88ZX Excision of Small Intestine, Via Natural or Artificial Opening Endoscopic, Diagnostic (ICD-10-PCS; principal; 2016-09-21 08:39)
DX: E87.6 Hypokalemia (principal); F31.64 Bipolar disorder, current episode mixed, severe, with psychotic features; E87.2 Acidosis; E87.3 Alkalosis; K76.0 Fatty (change of) liver, not elsewhere classified; E87.8 Other disorders of electrolyte and fluid balance, not elsewhere classified; G40.909 Epilepsy, unspecified, not intractable, without status epilepticus; R94.31 Abnormal electrocardiogram [ECG] [EKG]; Z85.3 Personal history of malignant neoplasm of breast; J45.909 Unspecified asthma, uncomplicated; R74.0 Nonspecific elevation of levels of transaminase and lactic acid dehydrogenase [LDH]; R63.4 Abnormal weight loss; F17.210 Nicotine dependence, cigarettes, uncomplicated; K29.80 Duodenitis without bleeding; K22.8 Other specified diseases of esophagus; K29.50 Unspecified chronic gastritis without bleeding

== ENCOUNTER 2016-09-30 07:36 | Inpatient (IN) | payer MEDICAID, OTHER ==
[2016-09-30 07:36] VITALS: BMI 17.7
--- NOTE | 2016-09-30 08:23 | C.PDOC ---
History Of Present Illness 35-year-old female, PMHx includes Bipolar Disorder, Seizures, Breast/Uterine Cancer, presents to the emergency department with complaints of swelling lower extremities. Patient states she was discharged from the hospital last week, after which she gradually developed swelling in both legs, and face. Patient notes that she has associated shortness of breath when she walks at a "normal pace" due to which she has to walk slow. Denies nausea/vomiting, diarrhea, fevers, or chills. Patient notes that she was seen in clinic, and sent to the ED for further evaluation. Denies back pain, dizziness, nausea/vomiting, diarrhea, or any other associated symptoms. No other complaints at this time. 35 F w/PMH sig for bipolar d/o, seizure d/o, hx breast and uterine CA admitted for intractable nausea and vomiting x 1-1.5 mos. Pt states that 1-1.5 mo ago she got "the flu", thought it would go away. Emesis occurs average 10x/day, occasionally bilious, non bloody, projectile, incited by all PO intake with subsequent wt loss of approx 20lbs/1 mo. Admits to fatigue, weakness, palpitations, abdominal pain only with emesis (severe, sharp, non radiating, epigastric, aggravated by movement/PO intake), Chest pressure with emesis, occasional headache with strong vomiting, sore throat from vomiting, B/L LE cramps. No alleviating factors identified. Pt did not try to go to PMD - mother recently, was not taking meds, did not want to go. Denies ever having before, vision changes, changes in bowel or bladder habits, cough, rhinorrhea, congestion. PMH: Bipolar d/o, seizure d/o, Hx breast CA (age 25), Hx uterine CA (age 27) PSH: B/L Mastectomy w/reconstruction (2016), uterine tumor resection with curettage (2008), uterine curettage w/bx (2009), LEEP w/RAJESH 3 (2013), appendectomy (1996) Time Seen by Provider: 09/30/16 07:55 Chief Complaint (Nursing): Lower Extremity Problem/Injury History Per: Patient History/Exam Limitations: no limitations Past Medical History Reviewed: Historical Data, Nursing Documentation, Vital Signs Vital Signs: Last Vital Signs Temp 97.6 F 09/30/16 12:46 Pulse 85 09/30/16 12:46 Resp 18 09/30/16 12:46 BP 91/56 L 09/30/16 12:46 Pulse Ox 99 09/30/16 12:46 - Medical History PMH: Asthma, Bipolar Disorder, Seizures (last seizure was 2013-jun) Denies: Alzheimer's Disease, Anxiety, Atrial Fibrillation, Bronchitis, Cardia Arrhythmia, CHF, COPD, Dementia, Depression, Emphysema, HTN, Hypercholesterolemia, Migraine, Mitral Valve Prolapse, Multiple Sclerosis, Paranoia, Parkinson's Disease, Peripheral Edema, Pneumonia, Post Traumatic Stress Disorder, Pulmonary Embolism, Schizophrenia, Sleep Apnea, TIA Surgical History: Appendectomy Denies: Pacemaker - [facility] Procedures ARTIF RUPT MEMBRANES NEC (09/29/04) CERVICAL LES CAUTERIZAT (05/14/14) D & C NEC (04/15/02) EPISIOTOMY (09/29/04) EXCISION OF SMALL INTESTINE, ENDO, DIAGN (09/19/16) HYSTEROSCOPY (04/15/02) NEBULIZER THERAPY (03/17/04) UTERINE LES DESTRUCT NEC (04/15/02) Family History: States: Unknown Family Hx - Social History Hx Alcohol Use: Yes (denies) Hx Substance Use: No - Immunization History Hx Tetanus Toxoid Vaccination: No Hx Influenza Vaccination: No Hx Pneumococcal Vaccination: No Review Of Systems Except As Marked, All Systems Reviewed And Found Negative. Constitutional: Negative for: Fever Cardiovascular: Positive for: Edema. Negative for: Chest Pain, Palpitations, Light Headedness Respiratory: Positive for: SOB with Excertion Gastrointestinal: Negative for: Nausea, Vomiting Musculoskeletal: Negative for: Back Pain Skin: Negative for: Rash Neurological: Negative for: Weakness, Numbness Physical Exam - Physical Exam Appears: Non-toxic, No Acute Distress Skin: Warm, Dry, No Rash Eye(s): bilateral: Normal Inspection, PERRL Nose: Normal Oral Mucosa: Moist Lips: Normal Appearing Neck: Normal ROM Chest: Symmetrical Cardiovascular: Rhythm Regular Respiratory: Normal Breath Sounds, No Accessory Muscle Use, No Rales, No Rhonchi Extremity: Pedal Edema (+2pitting B/L lower. +1 B/L thigh.) Neurological/Psych: Oriented x3, Normal Speech ED Course And Treatment - Laboratory Results Result Diagrams: 09/30/16 08:50 09/30/16 08:50 O2 Sat by Pulse Oximetry: 100 Pulse Ox Interpretation: Normal - Radiology CXR: Interpreted by Me CXR Interpretation: Yes: No Acute Disease Progress - Re-Evaluation Re-evaluation Note: 09/30/16 10:48 EXAM UNCH. BNP, TROP NEG. PENDING DIMER, POSSIBLE CTA 09/30/16 12:53 D/W DR MORRIS WILL ADMIT EXAM UNCH PRIOR, VSS - Data Reviewed Data Reviewed: Lab, Diagnostic imaging, EKG, Old records Medical Decision Making Medical Decision Making: Impression Swelling in B/L LE x1 week Plan: * VBG * EKG * BNP, CMP, Trop I * CBC, PTT, PT, D-Dimer * Chest X-Ray * Urinalysis * Reassess and Disposition EKG Rate 92bpm Rhythm NSR Intepret No Acute ST/T wave changes. Disposition Counseled Patient/Family Regarding: Studies Performed, Diagnosis - Disposition Disposition: HOSPITALIZED Disposition Time: 12:53 Condition: STABLE - POA Present On Arrival: None - Clinical Impression Clinical Impression: Edema of both legs - Scribe Statement The provider has reviewed the documentation as recorded by the Scriblourdes Celis All medical record entries made by the Scribe were at my direction and personally dictated by me. I have reviewed the chart and agree that the record accurately reflects my personal performance of the history, physical exam, medical decision making, and the department course for this patient. I have also personally directed, reviewed, and agree with the discharge instructions and disposition. Decision To Admit - Pt Status Changed To: Hospital Disposition Of: Observation - . Bed Request Type: Regular Admitting Physician: Parmjit Morris Patient Diagnosis: Edema of both legs, SOB (shortness of breath) on exertion
[2016-09-30 08:47] LABS: VENOUS BLOOD GAS BASE EXCESS 3.2 mmol/L (0.0-2.0); VENOUS BLOOD GAS PCO2 53 mmHg (40-60); VENOUS BLOOD PH 7.36 (7.32-7.43)
[2016-09-30 08:55] LABS: BASO # 0.1 K/uL (0.0-0.2); BASO % 1.4 % (0.0-2.0); EOS # 0.1 K/uL (0.0-0.7); EOS % 3.4 % (0.0-4.0); HEMATOCRIT 31.5 % (34.0-47.0); LYMPH # 1.9 K/uL (1.0-4.3); LYMPH % 46.2 % (20.0-40.0); MEAN CORPUSCULAR HEMOGLOBIN 36.1 pg (27.0-31.0); MEAN CORPUSCULAR HGB CONC 33.1 g/dL (33.0-37.0); MEAN PLATELET VOLUME 8.1 fL (7.2-11.7); MONO # 0.5 K/uL (0.0-0.8); RED CELL DISTRIBUTION WIDTH 19.8 % (11.5-14.5); WHITE BLOOD COUNT 4.2 K/uL (4.8-10.8)
--- NOTE | 2016-09-30 09:03 | RAD ---
HISTORY: SOB COMPARISON: CT chest, abdomen, and pelvis without contrast performed 09/19/16 TECHNIQUE: Chest PA and lateral FINDINGS: LUNGS: No focal consolidation. Please note that chest x-ray has limited sensitivity for the detection of pulmonary masses. PLEURA: No significant pleural effusion identified. No definite pneumothorax . CARDIOVASCULAR: The cardiomediastinal silhouette appears within normal limits of size. OSSEOUS STRUCTURES: No acute osseous abnormality identified. VISUALIZED UPPER ABDOMEN: Unremarkable. OTHER FINDINGS: Bilateral breast prostheses. IMPRESSION: No focal consolidation, significant pleural effusion, or definite pneumothorax identified.
[2016-09-30 09:06] LABS: CHLORIDE 102 mmol/L (98-107); SODIUM 138 mmol/L (132-148)
[2016-09-30 09:07] LABS: POTASSIUM 3.6 mmol/L (3.6-5.2)
[2016-09-30 09:09] LABS: ALB/GLOB RATIO 0.9 (1.0-2.1); ALKALINE PHOSPHATASE 68 U/L (38-126); AST/SGOT 40 U/L (14-36); BILIRUBIN,TOTAL 0.8 mg/dL (0.2-1.3); CARBON DIOXIDE 25 mmol/L (22-30); GFR AFRICAN-AMERICAN > 60; TOTAL PROTEIN 5.4 g/dL (6.3-8.3)
[2016-09-30 09:10] LABS: ALT/SGPT 15 U/L (9-52); CALCIUM 8.1 mg/dl (8.6-10.4); GLUCOSE,RANDOM 61 mg/dL (65-105)
[2016-09-30 09:14] LABS: BLOOD UREA NITROGEN < 2 mg/dL (7-17)
[2016-09-30] MEDS ORDERED: Iodixanol 320 MG/ML 100 ML BOTTLE IV ONE (11:39)
--- NOTE | 2016-09-30 12:34 | CT ---
CT chest with IV contrast Indication: SOB r/o PE Technique: Contiguous axial images were obtained through the chest with intravenous contrast enhancement. Sagittal and coronal reconstructions were generated and reviewed. This CT exam was performed using 1 or more of the falling dose reduction techniques: Automated exposure control, adjustment of the MAA and/or kV according to patient size, and/or use of iterative reconstruction technique. IV Contrast: 100 mL Visipaque Radiation dose (DLP): 217.47 MGy-cm. Comparison: CT of the chest, abdomen, and pelvis with IV contrast performed 09/19/16 Findings: Visualized portions of the inferior thyroid gland appear unremarkable. The mediastinal and hilar vascular structures appear within normal limits. The heart appears within normal limits of size. No large central or segmental pulmonary embolus evident. Mild left basilar atelectasis. No pleural effusion. No pneumothorax. No suspicious pulmonary nodules measuring greater than 5 mm. Limited visualization of the upper abdomen demonstrates mild hypoattenuation of the liver compatible with hepatic steatosis. Bilateral breast prostheses. No acute osseous abnormality is detected. Impression: Mild left basilar atelectasis.
--- NOTE | 2016-09-30 15:26 | CP.PCM.HP ---
<Rossy Campoverde - Last Filed: 09/30/16 16:05> History of Present Illness - History of Present Illness History of Present Illness: CC: "leg and face swelling" HPI: Patient is a 35 year old female with medical history significant for bipolar disorder, seizure disorder, breast and uterine carcinoma who was recently discharged from [facility] on 09/22/16. She had been admitted for intractable nausea and vomiting causing metabolic alkalosis with severe hypokalemia and hypochloremia. Patient reports since discharge at 5 PM she noted her bilateral lower extremities to be swollen. She states she feels as if each of her legs weighs ten pounds. Patient describes that it feels like she is strained to walk due to heaviness of her lower extremities. She states the swelling is constant. She also reports soreness of bilateral feet and pruritus to bilateral legs and feet. Patient denies numbness and tingling. She also complains of swelling of her face which is exacerbated after taking warm showers. Patient denies redness, rash, or pruritus to face. She denies shortness of breath, chest pain, and palpitations. Patient states she is tolerating eating small meals and denies further episodes of nausea or emesis. She is having normal bowel movements and denies urinary symptoms. PMH: Bipolar d/o, seizure d/o, Hx breast CA (age 25), Hx uterine CA (age 27) Medications: Depakote 750 mg po AM, Dilantin 100 mg po TID, Klonopin 0.5 mg po BID, Pantoprazole 40 mg po daily, and Seroquel 300 mg po HS Allergies: NKDA FH: M- 05/2017, maternal grandmother and maternal aunt with breast CA in 70' s and 50's PSH: B/L Mastectomy w/reconstruction (2016), uterine tumor resection with curettage (2008), uterine curettage w/bx (2009), LEEP w/RAJESH 3 (2013), appendectomy (1996) Social: Admits to tobacco use #3/day x 6 mos, former hx of 1ppd x 15 yrs, denies recent ETOH use (last drink 3 yrs ago), denies illicit drugs PMD: Dr. Pollard Pharmacy: [facility] Present on Admission - Present on Admission Any Indicators Present on Admission: No History of DVT/PE: No History of Uncontrolled Diabetes: No Urinary Catheter: No Decubitus Ulcer Present: No Review of Systems - Constitutional Constitutional: absent: Chills, Fever - EENT Eyes: absent: Blurred Vision, Change in Vision Ears: absent: Ear Discharge, Ear Pain Nose/Mouth/Throat: absent: Nasal Congestion, Nasal Discharge - Cardiovascular Cardiovascular: Leg Edema, Pedal Edema. absent: Chest Pain, Chest Pain at Rest , Dyspnea, Pain Radiating to Arm/Neck/Jaw, Lightheadedness, Palpitations, Paroxysmal Nocturnal Dyspnea, Radiating Pain, Rapid Heart Rate - Respiratory Respiratory: absent: Cough, Dyspnea, Dyspnea on Exertion - Gastrointestinal Gastrointestinal: absent: Abdominal Pain, Bloating, Diarrhea, Melena, Nausea, Vomiting - Musculoskeletal Musculoskeletal: absent: Atrophy, Back Pain - Integumentary Integumentary: absent: Changing Lesions, New Lesions - Neurological Neurological: absent: Dizziness, Numbness, Tingling, Weakness - Psychiatric Psychiatric: Mood Swings Past Patient History - Infectious Disease Hx of Infectious Diseases: None - Past Medical History & Family History Past Medical History?: Yes - Past Social History Smoking Status: Light Smoker < 10 Cigarettes Daily - CARDIAC Hx Atrial Fibrillation: No Hx Cardia Arrhythmia: No Hx Congestive Heart Failure: No Hx Hypercholesterolemia: No Hx Hypertension: No Hx Mitral Valve Prolapse: No Hx Pacemaker: No Hx Peripheral Edema: No - PULMONARY Hx Asthma: Yes Hx Bronchitis: No Hx Chronic Obstructive Pulmonary Disease (COPD): No Hx Emphysema: No Hx Pneumonia: No Hx Pulmonary Embolism: No Hx Sleep Apnea: No - NEUROLOGICAL Hx Alzheimer's Disease: No Hx Dementia: No Hx Migraine: No Hx Multiple Sclerosis: No Hx Parkinson's Disease: No Hx Seizures: Yes (last seizure was 2013-jun) Hx Transient Ischemic Attacks (TIA): No - HEENT Hx HEENT Problems: No - RENAL Other/Comment: Appendix removal - ENDOCRINE/METABOLIC Hx Endocrine Disorders: No - HEMATOLOGICAL/ONCOLOGICAL Hx Blood Disorders: Yes Hx Cancer: Yes (BREAST, UTERINE) - INTEGUMENTARY Hx Dermatological Problems: No - MUSCULOSKELETAL/RHEUMATOLOGICAL Hx Musculoskeletal Disorders: No - GASTROINTESTINAL Hx Gastrointestinal Disorders: No - GENITOURINARY/GYNECOLOGICAL Hx Genitourinary Disorders: Yes Hx Uterine Cancer: Yes - PSYCHIATRIC Hx Anxiety: No Hx Bipolar Disorder: Yes Hx Depression: No Hx Paranoia: No Hx Post Traumatic Stress Disorder: No Hx Schizophrenia: No Hx Substance Use: No - SURGICAL HISTORY Hx Appendectomy: Yes - ANESTHESIA Hx Anesthesia: Yes Hx Anesthesia Reactions: No Hx Malignant Hyperthermia: No Meds Allergies/Adverse Reactions: Allergies Allergy/AdvReac Type Severity Reaction Status Date / Time No Known Allergies Allergy Verified 09/30/16 07:46 Physical Exam - Constitutional Appears: Non-toxic, No Acute Distress - Head Exam Head Exam: ATRAUMATIC, NORMAL INSPECTION, NORMOCEPHALIC - Eye Exam Eye Exam: EOMI, PERRL Additional comments: large, almond shaped eyes - ENT Exam ENT Exam: Mucous Membranes Moist - Neck Exam Neck exam: Positive for: Full Rom, Normal Inspection - Respiratory Exam Respiratory Exam: Clear to Auscultation Bilateral, NORMAL BREATHING PATTERN. absent: Rales, Rhonchi, Wheezes - Cardiovascular Exam Cardiovascular Exam: +S1, +S2. absent: Tachycardia - GI/Abdominal Exam GI & Abdominal Exam: Normal Bowel Sounds, Soft. absent: Distended, Firm, Mass - Extremities Exam Extremities exam: Positive for: pedal edema, tenderness, pedal pulses present - Back Exam Back exam: NORMAL INSPECTION - Neurological Exam Neurological exam: Alert, CN II-XII Intact, Oriented x3 - Psychiatric Exam Psychiatric exam: Normal Affect, Normal Mood - Skin Skin Exam: Intact, Normal Color Results - Vital Signs Recent Vital Signs: Last Vital Signs Temp 97.6 F 09/30/16 12:46 Pulse 94 H 09/30/16 15:00 Resp 18 09/30/16 15:00 BP 97/54 L 09/30/16 15:00 Pulse Ox 97 09/30/16 15:00 - Labs Result Diagrams: 09/30/16 08:50 09/30/16 08:50 Assessment & Plan - Assessment and Plan (Free Text) Assessment: Bilateral Pedal Edema D-dimer 444 Troponin I <0.0120 EKG: NSR at rate of 92. No ST/T wave changes. CXR: No focal consolidation, significant pleural effusion or definite pneumothorax Chest CT: Mild left basilar atelectasis. No large central/segmental PE evident. Venous Duplex of bilateral lower extremities ordered Start Lasix 20 mg IVP BID Given history of breast and uterine cancer, will order CT Abd/pelvis with IV contrast to rule out obstruction Albumin mildly low, 2.5 Will follow-up echocardiogram prior to possibly administering albumin Leukopenia WBC 4.2, Hemoglobin 10.4, Hematocrit 31.5 Monitor History of Seizures Continued on Depakote 750 mg po AM and Dilantin 100 mg po TID History of Bipolar Disorder Continued on Seroquel 300 mg po HS and Klonopin 0.5 mg po BID Prophylaxis Lovenox 40 mg SC daily Pantoprazole 40 mg po daily - Date & Time Date: 09/30/16 Time: 16:27 <Eusebio Culver H - Last Filed: 10/02/16 07:13> Results - Vital Signs Recent Vital Signs: Last Vital Signs Temp 97.6 F 10/01/16 23:39 Pulse 70 10/01/16 23:39 Resp 18 10/01/16 23:39 BP 93/57 L 10/01/16 23:39 Pulse Ox 99 10/01/16 23:39 - Labs Result Diagrams: 09/30/16 08:50 10/01/16 07:58 Labs: Laboratory Results - last 24 hr 10/01/16 10/01/16 10/02/16 07:58 07:58 01:42 APTT 37 H D Sodium 139 Potassium 3.4 L Chloride 102 Carbon Dioxide 30 Anion Gap 11 BUN < 2 L Creatinine 0.5 L Est GFR ( Amer) > 60 Est GFR (Non-Af Amer) > 60 Random Glucose 76 Calcium 8.0 L Magnesium 1.6 Total Bilirubin 0.4 AST 27 ALT 21 Alkaline Phosphatase 64 Total Protein 4.7 L Albumin 2.1 L Globulin 2.5 Albumin/Globulin Ratio 0.8 L Vitamin B12 > 1000 H Folate 3.8 Urine Color Straw Urine Clarity Clear Urine pH 8.0 Ur Specific [place] 1.009 Urine Protein Negative Urine Glucose (UA) Normal Urine Ketones Negative Urine Blood Negative Urine Nitrate Negative Urine Bilirubin Negative Urine Urobilinogen Normal Ur Leukocyte Esterase Neg Urine WBC (Auto) < 1 Urine RBC (Auto) < 1 Ur Squamous Epith Cells 1 Attending/Attestation - Attestation I have personally seen and examined this patient.: Yes I have fully participated in the care of the patient.: Yes I have reviewed all pertinent clinical information: Yes
[2016-10-01 08:21] LABS: CHLORIDE 102 mmol/L (98-107); POTASSIUM 3.4 mmol/L (3.6-5.2); SODIUM 139 mmol/L (132-148)
[2016-10-01 08:23] LABS: ALB/GLOB RATIO 0.8 (1.0-2.1); ALKALINE PHOSPHATASE 64 U/L (38-126); AST/SGOT 27 U/L (14-36); BILIRUBIN,TOTAL 0.4 mg/dL (0.2-1.3); CARBON DIOXIDE 30 mmol/L (22-30); GFR AFRICAN-AMERICAN > 60; TOTAL PROTEIN 4.7 g/dL (6.3-8.3)
[2016-10-01 08:24] LABS: ALT/SGPT 21 U/L (9-52); BLOOD UREA NITROGEN < 2 mg/dL (7-17); GLUCOSE,RANDOM 76 mg/dL (65-105); MAGNESIUM 1.6 mg/dL (1.6-2.3)
[2016-10-01] MEDS ORDERED: Iodixanol 320 MG/ML 100 ML BOTTLE IV ONE (08:35)
[2016-10-01] MEDS ORDERED: Potassium Chloride 20 mEq ER Tab PO STA ×2 (08:52→10:08)
--- NOTE | 2016-10-01 08:59 | CP.PCM.PN ---
<Rossy Campoverde - Last Filed: 10/01/16 14:20> Subjective - Date & Time of Evaluation Date of Evaluation: 10/01/16 Time of Evaluation: 08:59 - Subjective Subjective: Patient seen and examined at bedside. Patient states her lower extremity edema has significantly improved. She denies pruritus to legs but still complains of sore feet. She states she did not have difficulty with ambulation. Patient states she still finds her face to be swollen. She denies chest pain, shortness of breath, abdominal pain, nausea, vomiting, constipation, and diarrhea. Objective - Vital Signs/Intake and Output Vital Signs (last 24 hours): Temp Pulse Resp BP Pulse Ox 97.7 F 85 20 98/64 L 95 10/01/16 08:00 10/01/16 08:00 10/01/16 08:00 10/01/16 08:00 10/01/16 08:00 - Medications Medications: Current Medications Clonazepam (Klonopin) 0.5 mg PO BID [facility] Last Admin: 09/30/16 18:48 Dose: 0.5 mg Divalproex Sodium (Depakote Er) 750 mg PO QAM [facility] Enoxaparin Sodium (Lovenox) 40 mg SC DAILY [facility] Folic Acid (Folic Acid) 1 mg PO DAILY [facility] Furosemide (Lasix) 20 mg IVP BID [facility] Last Admin: 09/30/16 18:48 Dose: 20 mg Magnesium Sulfate/Dextrose (Magnesium Sulfate 1 Gm/100 Ml D5w) 1 gm in 100 mls @ 300 mls/hr IVPB Q30M [facility] Stop: 10/01/16 09:40 Pantoprazole Sodium (Protonix Ec Tab) 40 mg PO DAILY [facility] Phenytoin Sodium (Dilantin) 100 mg PO TID [facility] Last Admin: 09/30/16 18:48 Dose: 100 mg Quetiapine Fumarate (Seroquel) 300 mg PO HS [facility] Last Admin: 09/30/16 22:54 Dose: 300 mg Thiamine HCl (Vitamin B1 Tab) 100 mg PO DAILY [facility] - Labs Labs: 10/01/16 07:58 PT 10.9 SECONDS (9.7-12.2) 09/30/16 09:04 INR 1.0 09/30/16 09:04 APTT 37 SECONDS (21-34) H D 10/01/16 07:58 - Head Exam Head Exam: ATRAUMATIC, NORMAL INSPECTION, NORMOCEPHALIC - Eye Exam Eye Exam: EOMI, Normal appearance, PERRL - ENT Exam ENT Exam: Mucous Membranes Moist - Respiratory Exam Respiratory Exam: Clear to Ausculation Bilateral, NORMAL BREATHING PATTERN. absent: Rales, Rhonchi, Wheezes - Cardiovascular Exam Cardiovascular Exam: +S1, +S2. absent: Tachycardia - GI/Abdominal Exam GI & Abdominal Exam: Soft, Normal Bowel Sounds. absent: Firm, Guarding, Tenderness - Extremities Exam Extremities Exam: Pedal Edema. absent: Tenderness - Back Exam Back Exam: NORMAL INSPECTION - Neurological Exam Neurological Exam: Alert, Awake, Oriented x3 - Psychiatric Exam Psychiatric exam: Normal Affect, Normal Mood - Skin Skin Exam: Intact, Normal Color, Warm Assessment and Plan - Assessment and Plan (Free Text) Assessment: Bilateral Pedal Edema D-dimer 444 Troponin I <0.0120 EKG: NSR at rate of 92. No ST/T wave changes. CXR: No focal consolidation, significant pleural effusion or definite pneumothorax Chest CT: Mild left basilar atelectasis. No large central/segmental PE evident. Venous Duplex of bilateral lower extremities ordered Start Lasix 20 mg IVP BID Given history of breast and uterine cancer, will order CT Abd/pelvis with IV contrast to rule out obstruction Albumin mildly low, 2.5 Will follow-up echocardiogram prior to possibly administering albumin Leukopenia WBC 4.2, Hemoglobin 10.4, Hematocrit 31.5 Possibly secondary to Dilantin, however, do not recommend discontinuing as patient taking for seizures Monitor History of Seizures Continued on Depakote 750 mg po AM and Dilantin 100 mg po TID History of Bipolar Disorder Continued on Seroquel 300 mg po HS and Klonopin 0.5 mg po BID Psychiatry consulted regarding discontinuing Dilantin which may be contributing to leukopenia Prophylaxis Lovenox 40 mg SC daily Pantoprazole 40 mg po daily <Parmjit Morris - Last Filed: 10/01/16 16:19> Objective - Vital Signs/Intake and Output Vital Signs (last 24 hours): Temp Pulse Resp BP Pulse Ox 97.9 F 106 H 20 96/62 L 99 10/01/16 15:04 10/01/16 15:04 10/01/16 15:04 10/01/16 15:04 10/01/16 15:04 - Medications Medications: Current Medications Clonazepam (Klonopin) 0.5 mg PO BID [facility] Last Admin: 10/01/16 10:07 Dose: 0.5 mg Divalproex Sodium (Depakote Er) 750 mg PO QAM [facility] Last Admin: 10/01/16 10:17 Dose: 750 mg Enoxaparin Sodium (Lovenox) 40 mg SC DAILY [facility] Last Admin: 10/01/16 10:06 Dose: 40 mg Folic Acid (Folic Acid) 1 mg PO DAILY [facility] Last Admin: 10/01/16 10:07 Dose: 1 mg Furosemide (Lasix) 20 mg IVP DAILY [facility] Pantoprazole Sodium (Protonix Ec Tab) 40 mg PO DAILY [facility] Last Admin: 10/01/16 10:07 Dose: 40 mg Phenytoin Sodium (Dilantin) 100 mg PO TID [facility] Last Admin: 10/01/16 13:35 Dose: 100 mg Quetiapine Fumarate (Seroquel) 300 mg PO HS [facility] Last Admin: 09/30/16 22:54 Dose: 300 mg Thiamine HCl (Vitamin B1 Tab) 100 mg PO DAILY [facility] Last Admin: 10/01/16 10:07 Dose: 100 mg - Labs Labs: 10/01/16 07:58 PT 10.9 SECONDS (9.7-12.2) 09/30/16 09:04 INR 1.0 09/30/16 09:04 APTT 37 SECONDS (21-34) H D 10/01/16 07:58 Attending/Attestation - Attestation I have personally seen and examined this patient.: Yes I have fully participated in the care of the patient.: Yes I have reviewed all pertinent clinical information, including history, physical exam and plan: Yes Notes (Text): 10/01/16 16:17 Patient was seen and examined at bedside She appears comfortable with mild lower extremity edema Patient was started on IV Lasix 20 mg twice a day We will decrease it to 20 mg daily Follow-up Doppler studies and echocardiogram Patient to is to be evaluated by psychiatry for bipolar disorder Patient also noted to have leukopenia/neutropenia We will continue to monitor No major intervention at this time I discussed the plan of care with the resident and I agree with the above history and physical and assessment/plan but the necessary amendments
[2016-10-01] MEDS: Enoxaparin 40 mg Syringe SC SCH (10:06)
[2016-10-01] MEDS: Pantoprazole 40 mg EC Tab PO SCH (10:07)
[2016-10-01] MEDS: Magnesium Sulfate 1 gm in D5W 1 GM/100 ML BAG IVPB SCH ×2 (10:07→11:43)
--- NOTE | 2016-10-01 13:23 | PCM.PSYCH ---
Initial Psychiatric Evaluation - Initial Psychiatric Evaluation Legal Status: Capacity Chief Complaint (in patient's own words): my legs and face are swollen Patient's Reaction to Hospitalization: i want to know why! History of Present Illness and Precipitating Events: pt is 35 year old domiciled unemployed female admitted for edema of lower extremities and face. pt suffers from bipolar disorder pt has a complicated medical history with uterine cancer, breast cancer with mastectomies with breast reconstruction. Pt has asthma and a seizure disorder. pt has had one psychiatric hospitalization at [facility]several years ago. pt states she usually becomes manic and not depressed. pt is currently on Depakote , Klonopin and Seroquel. Pt hasp been on Xanax and [place] in the past. Pt denies any suicidal history. Pt was arrested for aggravated assault and was incarcerated for about a month Pt's mother when the day she was released from [facility]. Pt has no substance abuse history. Pt's father is alive and she has 2 brothers but she is estranged from her family of origin. She has lived with her significant other for 3 years. Current Medications: Active Medications Generic Name Dose Route Start Last Admin Trade Name Freq PRN Reason Stop Dose Admin Clonazepam 0.5 mg 09/30/16 18:00 10/01/16 10:07 Klonopin PO 0.5 mg BID MARY GRACE Administration Divalproex Sodium 750 mg 10/01/16 10:00 10/01/16 10:17 Depakote Er PO 750 mg QAM MARY GRACE Administration Enoxaparin Sodium 40 mg 10/01/16 10:00 10/01/16 10:06 Lovenox SC 40 mg DAILY MARY GRACE Administration Folic Acid 1 mg 10/01/16 10:00 10/01/16 10:07 Folic Acid PO 1 mg DAILY MARY GRACE Administration Furosemide 20 mg 09/30/16 18:00 10/01/16 10:12 Lasix IVP Not Given BID MARY GRACE Pantoprazole Sodium 40 mg 10/01/16 10:00 10/01/16 10:07 Protonix Ec Tab PO 40 mg DAILY MARY GRACE Administration Phenytoin Sodium 100 mg 09/30/16 18:00 10/01/16 10:07 Dilantin PO 100 mg TID MARY GRACE Administration Quetiapine Fumarate 300 mg 09/30/16 22:00 09/30/16 22:54 Seroquel PO 300 mg HS MARY GRACE Administration Thiamine HCl 100 mg 10/01/16 10:00 10/01/16 10:07 Vitamin B1 Tab PO 100 mg DAILY MARY GRACE Administration Past Psychiatric History - Past Psychiatric History Prior Professional Help: see HPI Pertinent Medical Hx (Current Medical&Sleep Prob, Allergies): Allergies Allergy/AdvReac Type Severity Reaction Status Date / Time No Known Allergies Allergy Verified 09/30/16 07:46 Divalproex [Depakote ER] 250 mg PO HS 09/19/16 Divalproex [Depakote ER] 750 mg PO QAM #30 09/22/16 Pantoprazole [Protonix EC Tab] 40 mg PO DAILY #30 ect 09/22/16 Phenytoin, Extended [Dilantin] 100 mg PO TID #90 cer 09/22/16 QUEtiapine [SEROquel] 300 mg PO HS #30 09/22/16 clonazePAM [Klonopin] 0.5 mg PO BID #14 tab 09/22/16 Review of Systems - Constitutional Constitutional: Weakness, Malaise - EENT Eyes: UNREMARKABLE Ears: UNREMARKABLE Nose/Mouth/Throat: UNREMARKABLE - Breasts Breasts: UNREMARKABLE - Cardiovascular Cardiovascular: UNREMARKABLE - Respiratory Respiratory: UNREMARKABLE - Gastrointestinal Gastrointestinal: UNREMARKABLE - Genitourinary Genitourinary: UNREMARKABLE - Reproductive: Female Reproductive:Female: UNREMARKABLE - Musculoskeletal Musculoskeletal: UNREMARKABLE - Integumentary Integumentary: Striae - Neurological Neurological: UNREMARKABLE - Psychiatric Psychiatric: UNREMARKABLE - Endocrine Endocrine: UNREMARKABLE - Hematologic/Lymphatic Hematologic: UNREMARKABLE Mental Status Examination - Personal Presentation Personal Presentation: Looks younger than stated age - Affect Affect: Constricted - Motor Activity Motor Activity: Calm - Reliability in Providing Information Reliability in Providing Information: Good - Speech Speech: Organized - Mood Mood: Anxious - Formal Thought Process Formal Thought Process: No Impairment - Obsessions/Compulsions Obsessions: None Compulsions: None - Cognitive Functions Orientation: Person, Place, Situation, Time Sensorium: Alert Attention/Concentration: Attentive Abstract Thinking: As evidence by abstract perception of proverbs Estimate of Intelligence: Above Average Judgement: Intact, as evidence by: Good judgement Memory: Recent intact, as evidence by: Ability to recall events of the day, Remote intact, as evidenced by: Abilit to recall sig. life events - Risk Risk: Seizure - Strength & Assets Inventory Strength & Assets Inventory: Intelligence, Education, Employment history, Cooperative DSM 5 DX - DSM 5 DSM 5 Diagnosis: bipolar disorder mre mixed severe without psychotic features bipolar disorder klonopin seroquel depakote (pt would likev Depakote tapered off other medical problems as per attending - Recommended/Plan of Treatment Projected ELOS: 5 days Prognosis: good Discharge Plan and Discharge Criteria: when edema is resolved - Smoking Cessation Smoking Cessation Initiated: No
--- NOTE | 2016-10-01 14:28 | CT ---
CT abdomen and pelvis with IV contrast Indication: History of cancer, lower extremity edema, h/o breast ca Technique: Contiguous axial images of the abdomen, and pelvis following IV contrast. Oral contrast was not administered. Coronal and Sagittal reformats generated and reviewed. This CT exam was performed using 1 or more of the falling dose reduction techniques: Automated exposure control, adjustment of the MAA and/or kV according to patient size, and/or use of iterative reconstruction technique. Contrast dose: 100 mL Visipaque 320 Radiation dose: Total exam DLP = 253.81 MGy-cm. Comparison: Limited abdominal ultrasound performed 09/19/16, CT of the chest, abdomen, and pelvis without IV contrast performed 09/19/16 Findings: Minimal left basilar atelectasis. No visible pleural effusion or pneumothorax. Small hiatal hernia/distal esophageal wall thickening. Hepatomegaly. Diffuse hypoattenuation of the liver compatible with hepatic steatosis. Gallstone and sludge within the gallbladder. The spleen, kidneys, pancreas, and adrenal glands appear unremarkable. The stomach is nondistended. Lack of oral contrast limits evaluation for bowel pathology. The bowel loops appear within normal limits of caliber without evidence of intestinal obstruction. Moderate constipation. The appendix is not identified likely the result of appendectomy ; correlate with surgical history. No secondary signs of acute appendicitis. There is no definite free air. Uterus is present. Probable bilateral ovarian cysts. Under distended urinary bladder limits evaluation. Bilateral breast prostheses. No acute osseous abnormality is detected. If clinical concern for osseous metastases, suggest nuclear medicine bone scan. Impression: Hepatomegaly. Hepatic steatosis. Cholelithiasis and sludge. Small hiatal hernia/distal esophageal wall thickening. Probable bilateral ovarian cysts. Additional findings as above.
[2016-10-01 22:38] LABS: FOLATE 3.8 ng/mL
[2016-10-02 02:03] LABS: RBC URINE < 1 /hpf (0-3); URINE BILIRUBIN NEGATIVE (NEGATIVE); URINE BLOOD NEGATIVE (NEGATIVE); URINE COLOR Straw (YELLOW); URINE GLUCOSE (UA) NORMAL (Normal); URINE KETONE NEGATIVE (NEGATIVE); URINE LEUKOCYTE ESTERASE NEG Leu/uL (Negative); URINE PROTEIN NEGATIVE (NEGATIVE); URINE UROBILINOGEN NORMAL mg/dL (0.2-1.0); WBC URINE < 1 /hpf (0-5)
[2016-10-02 08:28] LABS: BASO # 0.1 K/uL (0.0-0.2); BASO % 1.3 % (0.0-2.0); EOS # 0.2 K/uL (0.0-0.7); EOS % 3.9 % (0.0-4.0); HEMATOCRIT 33.3 % (34.0-47.0); LYMPH # 2.3 K/uL (1.0-4.3); LYMPH % 53.2 % (20.0-40.0); MEAN CELL VOLUME 108.3 fL (81.0-99.0); MEAN CORPUSCULAR HEMOGLOBIN 35.4 pg (27.0-31.0); MEAN CORPUSCULAR HGB CONC 32.7 g/dL (33.0-37.0); MEAN PLATELET VOLUME 8.3 fL (7.2-11.7); MONO # 0.5 K/uL (0.0-0.8); MONO % 10.8 % (0.0-10.0); RED CELL DISTRIBUTION WIDTH 19.5 % (11.5-14.5); WHITE BLOOD COUNT 4.3 K/uL (4.8-10.8)
[2016-10-02 08:42] VITALS: BP 94/64; PULSE 91; RESP 20; TEMP 97.4; O2SAT 97
[2016-10-02 08:57] LABS: CHLORIDE 102 mmol/L (98-107); POTASSIUM 4.1 mmol/L (3.6-5.2); SODIUM 138 mmol/L (132-148)
[2016-10-02 08:59] LABS: AST/SGOT 33 U/L (14-36); BILIRUBIN,TOTAL 0.4 mg/dL (0.2-1.3); CARBON DIOXIDE 27 mmol/L (22-30); GFR AFRICAN-AMERICAN > 60
[2016-10-02 09:00] LABS: ALB/GLOB RATIO 0.9 (1.0-2.1); ALKALINE PHOSPHATASE 69 U/L (38-126); ALT/SGPT 20 U/L (9-52); CALCIUM 8.4 mg/dl (8.6-10.4); GLUCOSE,RANDOM 81 mg/dL (65-105); MAGNESIUM 1.7 mg/dL (1.6-2.3); TOTAL PROTEIN 5.2 g/dL (6.3-8.3)
[2016-10-02 09:01] LABS: BLOOD UREA NITROGEN < 2 mg/dL (7-17)
[2016-10-02] MEDS: Enoxaparin 40 mg Syringe SC SCH (10:40)
[2016-10-02] MEDS: Pantoprazole 40 mg EC Tab PO SCH (10:41)
--- NOTE | 2016-10-02 15:47 | CARD ---
APPROVED REPORT EKG Measurement Heart [id number] <Conclusion> Normal sinus rhythm Possible Left atrial enlargement Cannot rule out Anterior infarct, age undetermined Abnormal ECG
--- NOTE | 2016-10-02 18:58 | CP.PCM.DIS ---
<GillesRossy - Last Filed: 10/02/16 21:40> Provider - Provider Date of Admission: 09/30/16 15:08 Attending physician: Parmjit Morris MD Primary care physician: Dr. Pollard Time Spent in preparation of Discharge (in minutes): 41 Diagnosis - Discharge Diagnosis (1) Edema of both legs Status: Acute (2) Facial swelling Status: Acute (3) Seizure Status: Acute (4) Bipolar disorder Status: Acute Hospital Course - Lab Results Lab Results: Most Recent Lab Values WBC 4.3 K/uL (4.8-10.8) L 10/02/16 08:22 RBC 3.08 Mil/uL (3.80-5.20) L 10/02/16 08:22 Hgb 10.9 g/dL (11.0-16.0) L 10/02/16 08:22 Hct 33.3 % (34.0-47.0) L 10/02/16 08:22 MCV 108.3 fL (81.0-99.0) H 10/02/16 08:22 MCH 35.4 pg (27.0-31.0) H 10/02/16 08:22 MCHC 32.7 g/dL (33.0-37.0) L 10/02/16 08:22 RDW 19.5 % (11.5-14.5) H 10/02/16 08:22 Plt Count 407 K/uL (130-400) H 10/02/16 08:22 MPV 8.3 fL (7.2-11.7) 10/02/16 08:22 Neut % (Auto) 30.8 % (50.0-75.0) L 10/02/16 08:22 Lymph % (Auto) 53.2 % (20.0-40.0) H 10/02/16 08:22 [place] % (Auto) 10.8 % (0.0-10.0) H 10/02/16 08:22 Eos % (Auto) 3.9 % (0.0-4.0) 10/02/16 08:22 Baso % (Auto) 1.3 % (0.0-2.0) 10/02/16 08:22 Neut # 1.3 K/uL (1.8-7.0) L 10/02/16 08:22 Lymph # 2.3 K/uL (1.0-4.3) 10/02/16 08:22 [place] # 0.5 K/uL (0.0-0.8) 10/02/16 08:22 Eos # 0.2 K/uL (0.0-0.7) 10/02/16 08:22 Baso # 0.1 K/uL (0.0-0.2) 10/02/16 08:22 PT 10.9 SECONDS (9.7-12.2) 09/30/16 09:04 INR 1.0 09/30/16 09:04 APTT 37 SECONDS (21-34) H D 10/01/16 07:58 D-Dimer, Quantitative 444 ng/mlDDU (0-243) H 09/30/16 10:21 pO2 19 mm/Hg (30-55) L 09/30/16 08:44 VBG pH 7.36 (7.32-7.43) 09/30/16 08:44 VBG pCO2 53 mmHg (40-60) 09/30/16 08:44 VBG HCO3 25.5 mmol/L 09/30/16 08:44 VBG Total CO2 31.5 mmol/L (22-28) H 09/30/16 08:44 VBG O2 Sat (Calc) 31.2 % (40-65) L 09/30/16 08:44 VBG Base Excess 3.2 mmol/L (0.0-2.0) H 09/30/16 08:44 VBG Potassium 3.4 mmol/L (3.6-5.2) L 09/30/16 08:44 Sodium 141.0 mmol/l (132-148) 09/30/16 08:44 Chloride 108.0 mmol/L (98-107) H 09/30/16 08:44 Glucose 60 mg/dl (65-105) L 09/30/16 08:44 Lactate 2.9 mmol/L (0.7-2.1) H 09/30/16 08:44 Sodium 138 mmol/L (132-148) 10/02/16 08:22 Potassium 4.1 mmol/L (3.6-5.2) 10/02/16 08:22 Chloride 102 mmol/L (98-107) 10/02/16 08:22 Carbon Dioxide 27 mmol/L (22-30) 10/02/16 08:22 Anion Gap 13 (10-20) 10/02/16 08:22 BUN < 2 mg/dL (7-17) L 10/02/16 08:22 Creatinine 0.4 MG/DL (0.7-1.2) L 10/02/16 08:22 Est GFR ( Amer) > 60 10/02/16 08:22 Est GFR (Non-Af Amer) > 60 10/02/16 08:22 Random Glucose 81 mg/dL (65-105) 10/02/16 08:22 Calcium 8.4 mg/dl (8.6-10.4) L 10/02/16 08:22 Magnesium 1.7 mg/dL (1.6-2.3) 10/02/16 08:22 Total Bilirubin 0.4 mg/dL (0.2-1.3) 10/02/16 08:22 AST 33 U/L (14-36) 10/02/16 08:22 ALT 20 U/L (9-52) 10/02/16 08:22 Alkaline Phosphatase 69 U/L (38-126) 10/02/16 08:22 Troponin I < 0.0120 ng/mL (0.00-0.120) 09/30/16 08:50 NT-Pro-B Natriuret Pep 264 pg/mL (0-450) 09/30/16 08:50 Total Protein 5.2 g/dL (6.3-8.3) L 10/02/16 08:22 Albumin 2.5 g/dL (3.5-5.0) L 10/02/16 08:22 Globulin 2.7 gm/dL (2.2-3.9) 10/02/16 08:22 Albumin/Globulin Ratio 0.9 (1.0-2.1) L 10/02/16 08:22 Vitamin B12 > 1000 pg/mL (239-931) H 10/01/16 07:58 Folate 3.8 ng/mL 10/01/16 07:58 Venous Blood Potassium 3.4 mmol/L (3.6-5.2) L 09/30/16 08:44 Urine Color Straw (YELLOW) 10/02/16 01:42 Urine Clarity Clear (Clear) 10/02/16 01:42 Urine pH 8.0 (5.0-8.0) 10/02/16 01:42 Ur Specific [place] 1.009 (1.003-1.030) 10/02/16 01:42 Urine Protein Negative mg/dL (NEGATIVE) 10/02/16 01:42 Urine Glucose (UA) Normal mg/dL (Normal) 10/02/16 01:42 Urine Ketones Negative mg/dL (NEGATIVE) 10/02/16 01:42 Urine Blood Negative (NEGATIVE) 10/02/16 01:42 Urine Nitrate Negative (NEGATIVE) 10/02/16 01:42 Urine Bilirubin Negative (NEGATIVE) 10/02/16 01:42 Urine Urobilinogen Normal mg/dL (0.2-1.0) 10/02/16 01:42 Ur Leukocyte Esterase Neg Frank/uL (Negative) 10/02/16 01:42 Urine WBC (Auto) < 1 /hpf (0-5) 10/02/16 01:42 Urine RBC (Auto) < 1 /hpf (0-3) 10/02/16 01:42 Ur Squamous Epith Cells 1 /hpf (0-5) 10/02/16 01:42 - Hospital Course Hospital Course: CC: "leg and face swelling" HPI: Patient is a 35 year old female with medical history significant for bipolar disorder, seizure disorder, breast and uterine carcinoma who was recently discharged from [facility] on 09/22/16. She had been admitted for intractable nausea and vomiting causing metabolic acidosis with severe hypokalemia and hypochloremia. Patient reports since discharge at 5 PM she noted her bilateral lower extremities to be swollen. She states she feels as if each of her legs weighs ten pounds. Patient describes that it feels like she is strained to walk due to heaviness of her lower extremities. She states that the swelling is constant. She also reports soreness of bilateral feet and pruritus to bilateral legs and feet. Patient denies numbness and tingling. She also complains of swelling of her face which is exacerbated after taking warm showers. Patient denies redness, rash, or pruritus to face. She denies shortness of breath, chest pain, and palpitations. Patient states she is tolerating eating small meals and denies further episodes of nausea or emesis. She is having normal bowel movements and denies urinary symptoms. PMH: Bipolar d/o, seizure d/o, Hx breast CA (age 25), Hx uterine CA (age 27) Medications: Depakote 750mg po AM, Dilantin 100mg po TID, Klonopin 0.5mg po BID , Pantoprazole 40mg po daily, and Seroquel 300mg po HS Allergies: NKDA FH: M - 05/2016, maternal grandmother and maternal aunt with breast CA in 70's and 50's PSH: B/L Mastectomy w/reconstruction (2016), uterine tumor resection with curettage (2008), uterine curettage w/bx (2009), LEEP w/RAJESH 3 (2013), appendectomy (1996) Social: Admits to tobacco use #3/day x 6 mos, former hx of 1 ppd x 15 years, denies recent ETOH use (last drink was 3 years ago), denies illicit drugs PMD: Dr. Pollard Pharmacy: [facility] On hospital course: During hospital course, the following procedures/imaging were done: EKG (09/30/16): Normal sinus rhythm, possibly left atrial enlargement, cannot rule out anterior infarct, age undetermined Chest x ray (09/30/16): No focal consolidation, significant pleural effusion, or definite pneumothorax identified Chest CT (09/30/16): Mild left basilar atelectasis. No pleural effusion. No pneumothorax. CT abdomen/pelvis (09/30/16): Hepatomgaly. Mild steatosis. Cholelithiasis and sludge. Small hiatal hernia/distal esophageal wall thickening. Probable bilateral ovarian cysts. Duplex lower extremity (09/30/16): Echocardiogram (09/30/16): Bilateral pedal edema D-dimer 444, negative troponin, EKG NSR, CXR no focal consolidation, chest CT no PE evident, albumin mildly low at 2.5. Labs were monitored throughout hospital course. Patient was started on Lasix 20mg IVP BID. Patient's lower extremity edema and pruritus felt significantly improved on day 2. Patient left against medical advice on 10/02/16 before duplex and echocardiogram results became available. Leukopenia Upon admission, CBC showed WBC 4.2, hemoglobin 10.4, and hematocrit 31.5. Values were monitored throughout hospital course. History of seizures Patient was continued on Depakote 750mg po AM and Dilantin 100mg po TID. History of bipolar disorder Patient was continued on Seroquel 300mg po HS and Klonopin 0.5mg po BID Prophylactic measures Lovenox 40mg SC daily for DVT prophylaxis, and pantoprazole 40mg po daily for GI prophylaxis. During the hospital course, the following specialists were consulted: Dr. Painter, Psychiatry: Bipolar disorder mixed severe without psychotic features. Continue medications as prescribed. Noted that patient would like to be tapered off Depakote. Patient left AMA. Please note this is a summary of hospital course. For full details, please see chart. She had been instructed to resume taking her home medications and was given a prescription for Lasix 20 mg po daily Prn . Patient instructed to follow-up in clinic. - Date & Time of H&P Date of H&P: 09/30/16 Time of H&P: 15:18 Discharge Exam - Head Exam Head Exam: ATRAUMATIC, NORMAL INSPECTION, NORMOCEPHALIC - Eye Exam Eye Exam: EOMI, Normal appearance, PERRL - ENT Exam ENT Exam: Mucous Membranes Dry, Normal Oropharynx - Respiratory Exam Respiratory Exam: Clear to PA & Lateral, NORMAL BREATHING PATTERN, UNREMARKABLE - Cardiovascular Exam Cardiovascular Exam: +S1, +S2 - GI/Abdominal Exam GI & Abdominal Exam: Normal Bowel Sounds. absent: Unremarkable - Exam Exam: NORMAL INSPECTION - Back Exam Back exam: NORMAL INSPECTION - Neurological Exam Neurological exam: Alert, CN II-XII Intact, Normal Gait, Oriented x3 - Psychiatric Exam Psychiatric exam: Normal Affect - Skin Skin Exam: Intact, Normal Color, Warm Discharge Plan - Follow Up Plan Condition: STABLE Disposition: AGAINST MEDICAL ADVICE <Eusebio Culver H - Last Filed: 10/03/16 17:26> Provider - Provider Date of Admission: 09/30/16 15:08 Attending physician: Parmjit Morris MD Hospital Course - Lab Results Lab Results: Most Recent Lab Values WBC 4.3 K/uL (4.8-10.8) L 10/02/16 08:22 RBC 3.08 Mil/uL (3.80-5.20) L 10/02/16 08:22 Hgb 10.9 g/dL (11.0-16.0) L 10/02/16 08:22 Hct 33.3 % (34.0-47.0) L 10/02/16 08:22 MCV 108.3 fL (81.0-99.0) H 10/02/16 08:22 MCH 35.4 pg (27.0-31.0) H 10/02/16 08:22 MCHC 32.7 g/dL (33.0-37.0) L 10/02/16 08:22 RDW 19.5 % (11.5-14.5) H 10/02/16 08:22 Plt Count 407 K/uL (130-400) H 10/02/16 08:22 MPV 8.3 fL (7.2-11.7) 10/02/16 08:22 Neut % (Auto) 30.8 % (50.0-75.0) L 10/02/16 08:22 Lymph % (Auto) 53.2 % (20.0-40.0) H 10/02/16 08:22 [place] % (Auto) 10.8 % (0.0-10.0) H 10/02/16 08:22 Eos % (Auto) 3.9 % (0.0-4.0) 10/02/16 08:22 Baso % (Auto) 1.3 % (0.0-2.0) 10/02/16 08:22 Neut # 1.3 K/uL (1.8-7.0) L 10/02/16 08:22 Lymph # 2.3 K/uL (1.0-4.3) 10/02/16 08:22 [place] # 0.5 K/uL (0.0-0.8) 10/02/16 08:22 Eos # 0.2 K/uL (0.0-0.7) 10/02/16 08:22 Baso # 0.1 K/uL (0.0-0.2) 10/02/16 08:22 PT 10.9 SECONDS (9.7-12.2) 09/30/16 09:04 INR 1.0 09/30/16 09:04 APTT 37 SECONDS (21-34) H D 10/01/16 07:58 D-Dimer, Quantitative 444 ng/mlDDU (0-243) H 09/30/16 10:21 pO2 19 mm/Hg (30-55) L 09/30/16 08:44 VBG pH 7.36 (7.32-7.43) 09/30/16 08:44 VBG pCO2 53 mmHg (40-60) 09/30/16 08:44 VBG HCO3 25.5 mmol/L 09/30/16 08:44 VBG Total CO2 31.5 mmol/L (22-28) H 09/30/16 08:44 VBG O2 Sat (Calc) 31.2 % (40-65) L 09/30/16 08:44 VBG Base Excess 3.2 mmol/L (0.0-2.0) H 09/30/16 08:44 VBG Potassium 3.4 mmol/L (3.6-5.2) L 09/30/16 08:44 Sodium 141.0 mmol/l (132-148) 09/30/16 08:44 Chloride 108.0 mmol/L (98-107) H 09/30/16 08:44 Glucose 60 mg/dl (65-105) L 09/30/16 08:44 Lactate 2.9 mmol/L (0.7-2.1) H 09/30/16 08:44 Sodium 138 mmol/L (132-148) 10/02/16 08:22 Potassium 4.1 mmol/L (3.6-5.2) 10/02/16 08:22 Chloride 102 mmol/L (98-107) 10/02/16 08:22 Carbon Dioxide 27 mmol/L (22-30) 10/02/16 08:22 Anion Gap 13 (10-20) 10/02/16 08:22 BUN < 2 mg/dL (7-17) L 10/02/16 08:22 Creatinine 0.4 MG/DL (0.7-1.2) L 10/02/16 08:22 Est GFR ( Amer) > 60 10/02/16 08:22 Est GFR (Non-Af Amer) > 60 10/02/16 08:22 Random Glucose 81 mg/dL (65-105) 10/02/16 08:22 Calcium 8.4 mg/dl (8.6-10.4) L 10/02/16 08:22 Magnesium 1.7 mg/dL (1.6-2.3) 10/02/16 08:22 Total Bilirubin 0.4 mg/dL (0.2-1.3) 10/02/16 08:22 AST 33 U/L (14-36) 10/02/16 08:22 ALT 20 U/L (9-52) 10/02/16 08:22 Alkaline Phosphatase 69 U/L (38-126) 10/02/16 08:22 Troponin I < 0.0120 ng/mL (0.00-0.120) 09/30/16 08:50 NT-Pro-B Natriuret Pep 264 pg/mL (0-450) 09/30/16 08:50 Total Protein 5.2 g/dL (6.3-8.3) L 10/02/16 08:22 Albumin 2.5 g/dL (3.5-5.0) L 10/02/16 08:22 Globulin 2.7 gm/dL (2.2-3.9) 10/02/16 08:22 Albumin/Globulin Ratio 0.9 (1.0-2.1) L 10/02/16 08:22 Vitamin B12 > 1000 pg/mL (239-931) H 10/01/16 07:58 Folate 3.8 ng/mL 10/01/16 07:58 Venous Blood Potassium 3.4 mmol/L (3.6-5.2) L 09/30/16 08:44 Urine Color Straw (YELLOW) 10/02/16 01:42 Urine Clarity Clear (Clear) 10/02/16 01:42 Urine pH 8.0 (5.0-8.0) 10/02/16 01:42 Ur Specific [place] 1.009 (1.003-1.030) 10/02/16 01:42 Urine Protein Negative mg/dL (NEGATIVE) 10/02/16 01:42 Urine Glucose (UA) Normal mg/dL (Normal) 10/02/16 01:42 Urine Ketones Negative mg/dL (NEGATIVE) 10/02/16 01:42 Urine Blood Negative (NEGATIVE) 10/02/16 01:42 Urine Nitrate Negative (NEGATIVE) 10/02/16 01:42 Urine Bilirubin Negative (NEGATIVE) 10/02/16 01:42 Urine Urobilinogen Normal mg/dL (0.2-1.0) 10/02/16 01:42 Ur Leukocyte Esterase Neg Frank/uL (Negative) 10/02/16 01:42 Urine WBC (Auto) < 1 /hpf (0-5) 10/02/16 01:42 Urine RBC (Auto) < 1 /hpf (0-3) 10/02/16 01:42 Ur Squamous Epith Cells 1 /hpf (0-5) 10/02/16 01:42 Attending/Attestation - Attestation I have personally seen and examined this patient.: Yes I have fully participated in the care of the patient.: Yes I have reviewed all pertinent clinical information, including history, physical exam and plan: Yes Notes (Text): 10/03/16 17:17 Medical attending: Patient was seen and examined by me, agrees the above note by certified medical aide. The patient's lower extremity swelling and edema has resolved at this time. She' s been on some Lasix in small amounts. Regarding the discharge her with Lasix as well orally but we told her to take it only as needed so she doesn't have to take this every day. Also we emphasized to the patient that she needs to the continued to eat more as her albumen is relatively low as mentioned before in the previous admission she has had an extremely poor appetite for about 2 or 3 months ago. And I do believe that it's contributed to her low albumen poor nutritional status. At this time around she does not have the severe hypokalemia or metabolic alkalosis that she had before Thank you very much, Eusebio Culver
--- NOTE | 2016-10-03 06:54 | CARD ---
APPROVED REPORT EXAM: Two-dimensional and M-mode echocardiogram with Doppler and color Doppler. Other Information Quality : GoodRhythm : NSR INDICATION Cancer of breast & Uterine M-Mode DIMENSIONS RVDd2.34 (2.1-3.2cm)Left Atrium (MM)3.19 (2.5-4.0cm) IVSd1.00 (0.7-1.1cm)Aortic Root2.46 (2.2-3.7cm) LVDd3.77 (4.0-5.6cm)Aortic Cusp Exc.1.97 (1.5-2.0cm) PWd1.03 (0.7-1.1cm)FS (%) 36 % LVDs2.40 (2.0-3.8cm)LVEF (%)67 (>50%) Aortic Valve AoV Peak Xbrdjafd88.1cm/Anniak Peak GR.4mmHg Mitral Valve MV E Ejwpfrqb84.8cm/sMV A Yuqyulfe97.6cm/sE/A ratio1.7 TDI E/Lateral E'0.0E/Medial E'0.0 Tricuspid Valve TR Peak Uotkifml526ug/sTR Peak Gr.[id number] LEFT VENTRICLE The left ventricle is normal size. There is normal left ventricular wall thickness. Left ventricle systolic function is normal. The Ejection Fraction is 65-70%. There is normal LV segmental wall motion. The left ventricular diastolic function is normal. RIGHT VENTRICLE The right ventricle is normal size. There is normal right ventricular wall thickness. The right ventricular systolic function is normal. ATRIA The left atrium size is normal. The right atrium size is normal. The interatrial septum is intact with no evidence for an atrial septal defect. AORTIC VALVE The aortic valve is normal in structure. No aortic regurgitation is present. There is no aortic valvular stenosis. There is no aortic valvular vegetation. MITRAL VALVE The mitral valve is normal in structure. There is no evidence of mitral valve prolapse. There is no mitral valve stenosis. There is no mitral valve regurgitation noted. TRICUSPID VALVE The tricuspid valve is normal in structure. There is trace tricuspid regurgitation. Right ventricular systolic pressure is estimated at less than 30 mmHg. There is no pulmonary hypertension. PULMONIC VALVE The pulmonic valve is not well visualized. There is no pulmonic valvular regurgitation. GREAT VESSELS The aortic root is normal in size. PERICARDIAL EFFUSION There is no significant pericardial effusion. <Conclusion> Left ventricle systolic function is normal. The Ejection Fraction is 65-70%. No aortic regurgitation is present. There is no mitral valve regurgitation noted. There is trace tricuspid regurgitation. There is no pulmonary hypertension. There is no pulmonic valvular regurgitation.
--- NOTE | 2016-10-03 10:20 | VASCLAB ---
PROCEDURE: Lower Extremity Venous Duplex Exam. HISTORY: b/l LE edema PRIORS: None. TECHNIQUE: Bilateral common femoral, femoral, popliteal and posterior tibial, peroneal and great saphenous veins were evaluated. Flow was assessed with color Doppler, compressibility, assessment of phasic flow and augmentation response. Report prepared by Keon Woodward, REJI, RVT FINDINGS: RIGHT: 1. Common Femoral Vein: 1.1. Compressibility - Fully compressible: Thrombus - None : Flow - Phasic: Augmentation -Normal: Reflux - None. 2. Femoral Vein: 2.1. Compressibility - Fully compressible: Thrombus - None : Flow - Phasic: Augmentation -Normal: Reflux - None. 3. Popliteal Vein: 3.1. Compressibility - Fully compressible: Thrombus - None : Flow - Phasic: Augmentation -Normal: Reflux - None. 4. Posterior Tibial Vein: 4.1. Compressibility - Fully compressible: Thrombus - None: Flow - Phasic: Augmentation -Normal: Reflux - None. 5. Peroneal Vein: 5.1. Compressibility - Fully compressible: Thrombus - None: Flow - Phasic: Augmentation -Normal: Reflux - None. 6. Great Saphenous Vein: 6.1. Compressibility - Fully compressible: Thrombus - None: Flow - Phasic: Augmentation - Normal: Reflux - None. LEFT: 1. Common Femoral Vein: 1.1. Compressibility - Fully compressible: Thrombus - None: Flow - Phasic: Augmentation -Normal: Reflux - None. 2. Femoral Vein: 2.1. Compressibility - Fully compressible: Thrombus - None: Flow - Phasic: Augmentation -Normal: Reflux - None. 3. Popliteal Vein: 3.1. Compressibility - Fully compressible: Thrombus - None : Flow - Phasic: Augmentation -Normal: Reflux - None. 4. Posterior Tibial Vein: 4.1. Compressibility - Fully compressible: Thrombus - None: Flow - Phasic: Augmentation -Normal: Reflux - None. 5. Peroneal Vein: 5.1. Compressibility - Fully compressible: Thrombus - None: Flow - Phasic: Augmentation -Normal: Reflux - None. 6. Great Saphenous Vein: 6.1. Compressibility - Fully compressible: Thrombus - None: Flow - Phasic: Augmentation - Normal: Reflux - None. OTHER FINDINGS: Right: None significant. Left: None significant. IMPRESSION: Right: No evidence of deep or superficial vein thrombosis of the right lower extremity. Normal valve function noted of the right side. Left: No evidence of deep or superficial vein thrombosis of the left lower extremity. Normal valve function noted of the left side.
== END 2016-10-02 13:40 | disposition left against medical advice (07) | DRG 464 ==
LOC: C.ER 07:36 → C.9E 12:54 → C.5T 14:33 → OBSVTOIN 15:08 → INTOOBSV 15:08
PROVIDERS: ADMIT Hospitalist; ATTEND Internal Medicine
DX: R60.0 Localized edema (principal); D70.9 Neutropenia, unspecified; F31.63 Bipolar disorder, current episode mixed, severe, without psychotic features; G40.909 Epilepsy, unspecified, not intractable, without status epilepticus; J45.909 Unspecified asthma, uncomplicated; Z87.891 Personal history of nicotine dependence; Z85.42 Personal history of malignant neoplasm of other parts of uterus; Z85.3 Personal history of malignant neoplasm of breast

== ENCOUNTER 2016-11-28 06:33 | Inpatient (IN) | payer MEDICAID ==
--- NOTE | 2016-11-28 08:08 | C.PDOC ---
History Of Present Illness 35 yr old female with PMHx of bipolar disorder, seizure disorder, breast and uterine cancer, brought in via BLS, presents to the ER for a possible overdose CT MANAGER. Patient is accompanied by a underwriting assistant, who states they last saw the patient normal at 1600 11/27. [employer] states they spoke to patient on phone around 0500, states "sounded groggy". Found patient sitting on the edge of bed, slumped over states "I thought she was ". [employer] called EMS and Narcan was administered CT MANAGER with improvement 5 minuets later. Patient is now at baseline. Patient states she was in the room "where they were bagging heroin" from [id number]. Denies ingestion, injection or other drug abuse. Reports vomiting CT MANAGER and now also has nausea. Denies fever, chest pain, SOB, abdominal pain, suicidal or homicidal ideation. POSSIBLE OVERDOSE CT MANAGER. C2 TACTICAL ANALYSIS TECHNICIAN STATES LAST SAW PT NORMAL @ 1600 11/27. SPOKE W PT ON PHONE [phone] "SOUNDED GROGGY. FOUND PT SITTING ON EDGE OF BED SLUMPED OVER, C2 TACTICAL ANALYSIS TECHNICIAN STATES "I THOUGHT SHE WAS ". CALLED EMS, GIVEN NARCAN CT MANAGER W IMPROVE 5 MINS LATER. PT NOW @ BASELINE. bipolar d/o, seizure d/o, hx breast and uterine CA PS WAS IN ROOM "WHERE THEY WERE BAGGING HEROIN" FROM [id number]. DENIES INGESTION OR INJECTION, OR OTHER DRUG ABUSE. DENIES RECENT FEVER, ILLNESS. + VOMIT CT MANAGER, NOW CO NAUSEA. NO FOCAL PAIN. DENIES SUICIDAL IDEATION, PLAN. . EXAM NAD NONTOXIC EXT B/L 2+ EDEMA PITTING LUNGS CTA B/L NO W/R/R PSYCH NO S/S ACUTE INTOX OR WITHDRAWAL NEURO REMAINDER NEG MDM NO S/S ACUTE INTOX OR WITHDRAWAL. NO PRIOR ER OR PSYCH VISITS DOCUMENTING OVERDOSE, SUICIDAL PLAN OR DRUG ABUSE. PS WISHES DC HOME. MED CLEAR, CRISIS EVAL , REEVAL. PT AGREES W PLAN. Time Seen by Provider: 11/28/16 07:28 Chief Complaint (Nursing): Substance Abuse History Per: Patient, Family ([employer] ) History/Exam Limitations: no limitations Onset/Duration Of Symptoms: Sudden Onset (CT MANAGER ) Past Medical History Reviewed: Historical Data, Nursing Documentation, Vital Signs Vital Signs: Last Vital Signs Temp 97.6 F 11/28/16 06:50 Pulse 99 H 11/28/16 11:37 Resp 16 11/28/16 11:37 BP 116/86 11/28/16 11:37 Pulse Ox 100 11/28/16 12:01 - Medical History PMH: Asthma, Bipolar Disorder, Seizures (last seizure was 2013-jun) Surgical History: Appendectomy - [facility] Procedures ARTIF RUPT MEMBRANES NEC (09/29/04) CERVICAL LES CAUTERIZAT (05/14/14) D & C NEC (04/15/02) EPISIOTOMY (09/29/04) EXCISION OF SMALL INTESTINE, ENDO, DIAGN (09/19/16) HYSTEROSCOPY (04/15/02) NEBULIZER THERAPY (03/17/04) UTERINE LES DESTRUCT NEC (04/15/02) Family History: States: No Known Family Hx - Social History Hx Alcohol Use: No Hx Substance Use: No - Immunization History Hx Tetanus Toxoid Vaccination: No Hx Influenza Vaccination: No Hx Pneumococcal Vaccination: No Review Of Systems Except As Marked, All Systems Reviewed And Found Negative. Constitutional: Negative for: Fever Cardiovascular: Negative for: Chest Pain Respiratory: Negative for: Shortness of Breath Gastrointestinal: Positive for: Nausea, Vomiting. Negative for: Abdominal Pain Psych: Negative for: Suicidal ideation Physical Exam - Physical Exam Appears: Non-toxic, No Acute Distress Skin: Warm, Dry, No Rash Head: Atraumatic, Normacephalic Oral Mucosa: Moist Neck: Normal, Normal ROM, Supple Chest: Symmetrical, No Tenderness Cardiovascular: Rhythm Regular, No Murmur Respiratory: Normal Breath Sounds, No Rales, No Rhonchi, No Wheezing Gastrointestinal/Abdominal: Normal Exam, Soft, No Tenderness, No Guarding, No Rebound Extremity: Normal ROM, No Swelling, Other (Bilateral 2+ pitting edema. ) Neurological/Psych: Oriented x3, Normal Speech, Normal Motor, Normal Sensation, Eyes Open With Command ED Course And Treatment - Laboratory Results Result Diagrams: 11/28/16 08:33 11/28/16 09:22 ECG: Interpreted By Me, Viewed By Me ECG Rhythm: Sinus Rhythm Interpretation Of ECG: ST&T wave abnormality, consider inferolateral ischemia Rate From EC (BPM) O2 Sat by Pulse Oximetry: 100 (RA ) Pulse Ox Interpretation: Normal - Radiology CXR: Viewed By Me, Read By Radiologist CXR Interpretation: Yes: No Acute Disease Progress - Data Reviewed Data Reviewed: Lab, Diagnostic imaging, EKG, Old records - Critical Care Citical Care: Excluding Proc Time Critical Care Time: 90 minutes - Continuity of Care Discussed patient case with:: Patient Discussed pt. case with senior management consultant/specialty: Psychiatry, Other ([facility]) Medical Decision Making Medical Decision Making: PLAN: * CXR * EKG * Alcohol Serum * Drug Screen * Troponin * Acetaminophen * CBC * CMP * HCG * Urinalysis * Sodium Chloride IV NOTE: No S/S acute intoxication or withdrawal. No prior ER or psych visits documenting overdose, suicidal plan or drug abyse. Patient wishes to be discharged home. Medically cleared, crisis eval, reeval. Patient agrees with plan. ED OBSERVATION Date of observation admission: 11/28/16 Time of observation admission: 07:30 - Observation admission statement Patient is being placed in observation because:: OVERDOSE; AMS - Goals of Observation Goals of observation are:: MED CLEAR; CRISIS EVAL - Progress Note Progress Note: 11/28/16 08:09 D/W ED @ [facility] STATES MECHANISM DESCRIBED COULD ACCOUNT FOR PT SX. ADVISES CONT ER OBSERVATION FOR SEV HOURS TO MONITOR FOR NARCAN WEARING OFF. 11/28/16 08:11 CLEARED FROM 1:1 BY GALO BAZAN 11/28/16 09:[address] PALOMARES. PER CRISIS, D/W PT'S PSYCHIATRIST STATES PT IS ON PSYCHOTROPICS AND HAS NOT BEEN EATING WELL.PENDING FU W DR YOON HEME/ONC. 11/28/16 09:52 PT UNABLE TO GIVE UA. WILL HYDRATE 11/28/16 11:20 SEVERE HYPOKALEMIA. EXAM UNCH VSS. +EKG CHANGES. PT AGREES W ADMISSION 11/28/16 11:54 D/W DR QURESHI WILL ADMIT Disposition Counseled Patient/Family Regarding: Studies Performed, Diagnosis - Disposition Disposition: HOSPITALIZED Disposition Time: 11:21 Condition: SERIOUS - POA Present On Arrival: Poor Glycemic Control - Clinical Impression Clinical Impression: Accidental overdose, Hypokalemia - Scribe Statement The provider has reviewed the documentation as recorded by the Daniel Johnson Provider Attestation: All medical record entries made by the Polinaiblourdes were at my direction and personally dictated by me. I have reviewed the chart and agree that the record accurately reflects my personal performance of the history, physical exam, medical decision making, and the department course for this patient. I have also personally directed, reviewed, and agree with the discharge instructions and disposition. Decision To Admit - Pt Status Changed To: Hospital Disposition Of: Observation - . Bed Request Type: Telemetry Admitting Physician: Eusebio Qureshi Patient Diagnosis: Accidental overdose, Hypokalemia
[2016-11-28 08:44] LABS: BASO # 0.1 K/uL (0.0-0.2); BASO % 1.1 % (0.0-2.0); EOS # 0.2 K/uL (0.0-0.7); EOS % 2.7 % (0.0-4.0); HEMOGLOBIN 12.2 g/dL (11.0-16.0); LYMPH # 3.2 K/uL (1.0-4.3); LYMPH % 50.4 % (20.0-40.0); MEAN CORPUSCULAR HEMOGLOBIN 35.1 pg (27.0-31.0); MEAN CORPUSCULAR HGB CONC 33.8 g/dL (33.0-37.0); MEAN PLATELET VOLUME 8.3 fL (7.2-11.7); MONO # 0.5 K/uL (0.0-0.8); MONO % 7.7 % (0.0-10.0); NEUT # 2.4 K/uL (1.8-7.0); NEUT % 38.1 % (50.0-75.0); NRBC % 0.2 % (0.0-2.0); RBC 3.48 Mil/uL (3.80-5.20); RED CELL DISTRIBUTION WIDTH 20.2 % (11.5-14.5); WHITE BLOOD COUNT 6.3 K/uL (4.8-10.8)
[2016-11-28 08:46] LABS: MEAN CELL VOLUME 103.8 fL (81.0-99.0)
[2016-11-28 08:47] LABS: ALBUMIN 3.1 g/dL (3.5-5.0)
[2016-11-28 08:49] LABS: GFR AFRICAN-AMERICAN > 60; GFR NON-AFRICAN AMERICAN > 60
[2016-11-28 08:50] LABS: ALT/SGPT 37 U/L (9-52); AST/SGOT 149 U/L (14-36); BLOOD UREA NITROGEN 5 mg/dL (7-17); CALCIUM 8.7 mg/dl (8.6-10.4)
[2016-11-28 08:53] LABS: SALICYLATE < 1.0 mg/dL 1
[2016-11-28 09:00] LABS: ACETAMINOPHEN < 10.0 ug/mL (10.0-30.0)
[2016-11-28 09:51] LABS: MAGNESIUM 1.5 mg/dL (1.6-2.3)
[2016-11-28] MEDS ORDERED: Sodium Chloride 0.9% 1,000 ML IV ONE (09:52)
--- NOTE | 2016-11-28 11:47 | RAD ---
PROCEDURE: CHEST RADIOGRAPH, 1 VIEW HISTORY: Altered mental status COMPARISON: None available. FINDINGS: LUNGS: Clear. PLEURA: No pneumothorax or pleural fluid seen. CARDIOVASCULAR: Normal. OSSEOUS STRUCTURES: No significant abnormalities. VISUALIZED UPPER ABDOMEN: Normal. OTHER FINDINGS: None. IMPRESSION: No active disease.
[2016-11-28] MEDS ORDERED: Potassium Chloride 20 mEq/15 ml LIQ UD PO STA (11:48)
[2016-11-28] MEDS ORDERED: Potassium Chloride 20 mEq/15 ml LIQ UD ONE (12:03)
[2016-11-28 12:05] LABS: HCG,QUALITATIVE URINE NEGATIVE (NEGATIVE)
[2016-11-28 12:14] LABS: BENZODIAZEPINES, UR NEGATIVE (NEGATIVE)
[2016-11-28 12:15] LABS: BARBITURATES, UR NEGATIVE (NEGATIVE)
[2016-11-28 12:18] LABS: OPIATES, UR NEGATIVE (NEGATIVE); PHENCYCLIDINE, UR NEGATIVE (NEGATIVE)
[2016-11-28 12:24] LABS: SQUAMOUS EPITHIAL 2 /hpf (0-5); URINE BILIRUBIN NEGATIVE (NEGATIVE); URINE BLOOD NEGATIVE (NEGATIVE); URINE CLARITY Clear (Clear); URINE COLOR Yellow (YELLOW); URINE GLUCOSE (UA) NORMAL (Normal); URINE HYALINE CAST 0-2 /lpf (0-2); URINE LEUKOCYTE ESTERASE NEG Leu/uL (Negative); URINE NITRATE NEGATIVE (NEGATIVE); URINE PROTEIN NEGATIVE (NEGATIVE); URINE UROBILINOGEN NORMAL mg/dL (0.2-1.0)
[2016-11-28] MEDS ORDERED: Divalproex 250 mg DR Tab PO ONE (13:14)
[2016-11-28] MEDS ORDERED: Divalproex 500 mg DR Tab PO ONE (13:14)
[2016-11-28] MEDS ORDERED: Divalproex 500 mg ER Tab PO STA (13:20)
[2016-11-28] MEDS ORDERED: Potassium Chloride 20 mEq ER Tab PO ONE ×2 (13:45→13:54)
--- NOTE | 2016-11-28 14:00 | CP.PCM.HP ---
<Becky Brambila - Last Filed: 11/28/16 19:05> History of Present Illness - History of Present Illness History of Present Illness: CC: "I passed out" HPI: 35 year old female with a history of seizures, hypokalemia, asthma, breast and uterine cancer presents to the ED after syncopal episode at 6:30am this morning per boyfriend. Per boyfriend the patient was found unconsciouses and he preceded by calling the ambulance. Per EMS patient was given Narcan. Patient states she does not recall any of these events. Patient denies illicit substance use. Patient denies chronic alcohol use. Patient states the night previously she drank a few beers and a few shots but nothing else. Patient states she has not had seizures in the past due to alcohol withdraw. Per patient she is nauseous and vomited once in the ambulance and currently in the ED only has dry heaves. Per patient she has a headache and has had a decrease in her appetite for the past month. Per patient she denies chest pain, shortness of breath, palpitations, diarrhea, constipation, dysuria, or blood in her urine. Patient would not tell me psychiatry history. However from chart review patient has history of bipolar disorder. PMD: Dr. Garza Psychiatry: Dr. [place] Oncologist: Dr. Yang Past Medical History: Hypokalemia, seizure, asthma, breast and uterine cancer ( remission 7+ years) Past Surgical History: Breast and Uterine Cancer Surgery, Appendectomy Family History: Mom and Dad: Cancer Medications: 100mg Dilantin TID, 750mg Depakote PO Daily, 0.5mg Klonopin PO BID ; 300mg Seroquel PO HS; K+; Lasix, Anti-nausea medication Allergies: NKDA Social History: Currently unemployed; Lives with boyfriend; Patient denies illicit drug use; Per patient Social drinker 1-2x per week; patient states she has a few beers and a few shots when she drinks. Patient smokes 4 cigarettes per day for the past 19 years. Present on Admission - Present on Admission Any Indicators Present on Admission: No Review of Systems - Constitutional Constitutional: absent: Increased Appetite (decreased appetite) - Cardiovascular Cardiovascular: absent: Chest Pain, Dyspnea, Lightheadedness, Palpitations - Respiratory Respiratory: absent: Dyspnea, Pain on Inspiration - Gastrointestinal Gastrointestinal: Nausea (dry heaves), Vomiting (vomited once in the ambulance) . absent: Abdominal Pain, Constipation, Diarrhea, Hematochezia - Genitourinary Genitourinary: absent: Dysuria, Hematuria - Neurological Neurological: Headaches. absent: Dizziness - Psychiatric Psychiatric: Change in Appetite (decrease in appetite over the past month) Past Patient History - Infectious Disease Hx of Infectious Diseases: None - Past Medical History & Family History Past Medical History?: Yes - Past Social History Smoking Status: Light Smoker < 10 Cigarettes Daily - CARDIAC Hx Hypertension: No - PULMONARY Hx Asthma: Yes - NEUROLOGICAL Hx Seizures: Yes (last seizure was 2013-jun) - HEENT Hx HEENT Problems: No - RENAL Other/Comment: Appendix removal 1995 - ENDOCRINE/METABOLIC Hx Endocrine Disorders: No - HEMATOLOGICAL/ONCOLOGICAL Hx Cancer: Yes (Leukemia) Hx Human Immunodeficiency Virus (HIV): No - INTEGUMENTARY Hx Dermatological Problems: No - MUSCULOSKELETAL/RHEUMATOLOGICAL Hx Musculoskeletal Disorders: No Hx Falls: Yes (seizures) - GASTROINTESTINAL Hx Gastrointestinal Disorders: No Other/Comment: No BM in 1 month 09/02-09/30 - GENITOURINARY/GYNECOLOGICAL Hx Sexually Transmitted Disorders: No - PSYCHIATRIC Hx Bipolar Disorder: Yes Hx Substance Use: No - SURGICAL HISTORY Hx Appendectomy: Yes - ANESTHESIA Hx Anesthesia: Yes Hx Anesthesia Reactions: No Hx Malignant Hyperthermia: No Meds Allergies/Adverse Reactions: Allergies Allergy/AdvReac Type Severity Reaction Status Date / Time No Known Allergies Allergy Verified 09/30/16 07:46 Physical Exam - Constitutional Appears: No Acute Distress, Cachectic - Head Exam Head Exam: NORMAL INSPECTION, NORMOCEPHALIC - Eye Exam Eye Exam: EOMI, PERRL Pupil Exam: NORMAL ACCOMODATION - ENT Exam ENT Exam: Mucous Membranes Moist - Neck Exam Neck exam: Negative for: Tenderness - Respiratory Exam Respiratory Exam: Clear to Auscultation Bilateral, NORMAL BREATHING PATTERN. absent: Rales, Rhonchi, Wheezes, Stridor - Cardiovascular Exam Cardiovascular Exam: REGULAR RHYTHM, RRR, +S1, +S2. absent: JVD - GI/Abdominal Exam GI & Abdominal Exam: Normal Bowel Sounds, Soft. absent: Distended, Guarding, Rebound, Rigid, Tenderness - Extremities Exam Extremities exam: Positive for: pedal pulses present. Negative for: calf tenderness, joint swelling, pedal edema, tenderness - Neurological Exam Neurological exam: Alert, Oriented x3 - Skin Skin Exam: Pallor (patient looks pallor in color), Warm Results - Vital Signs Recent Vital Signs: Last Vital Signs Temp 97.6 F 11/28/16 06:50 Pulse 99 H 11/28/16 11:37 Resp 16 11/28/16 11:37 BP 116/86 11/28/16 11:37 Pulse Ox 100 11/28/16 12:15 - Labs Result Diagrams: 11/28/16 08:33 11/28/16 15:53 Labs: Laboratory Results - last 24 hr 11/28/16 11/28/16 11/28/16 08:33 08:33 08:33 WBC 6.3 RBC 3.48 L Hgb 12.2 Hct 36.1 MCV 103.8 H D MCH 35.1 H MCHC 33.8 RDW 20.2 H Plt Count 310 MPV 8.3 Neut % (Auto) 38.1 L Lymph % (Auto) 50.4 H [place] % (Auto) 7.7 Eos % (Auto) 2.7 Baso % (Auto) 1.1 Neut # 2.4 Lymph # 3.2 [place] # 0.5 Eos # 0.2 Baso # 0.1 Sodium 141 Potassium 1.5 L* D Chloride 90 L Carbon Dioxide 29 Anion Gap 23 H BUN 5 L Creatinine 0.6 L Est GFR ( Amer) > 60 Est GFR (Non-Af Amer) > 60 Random Glucose 230 H Calcium 8.7 Magnesium Total Bilirubin 0.6 AST 149 H D ALT 37 Alkaline Phosphatase 211 H D Troponin I Total Protein 6.2 L Albumin 3.1 L D Globulin 3.1 Albumin/Globulin Ratio 1.0 Urine Color Urine Clarity Urine pH Ur Specific [place] Urine Protein Urine Glucose (UA) Urine Ketones Urine Blood Urine Nitrate Urine Bilirubin Urine Urobilinogen Ur Leukocyte Esterase Urine WBC (Auto) Ur Squamous Epith Cells Hyaline Casts Urine HCG, Qual Salicylates < 1.0 Urine Opiates Screen Urine Methadone Screen Acetaminophen < 10.0 L Ur Barbiturates Screen Ur Phencyclidine Scrn Ur Amphetamines Screen U Benzodiazepines Scrn U Oth Cocaine Metabols U Cannabinoids Screen Alcohol, Quantitative 137 H 11/28/16 11/28/16 11/28/16 09:22 11:52 11:52 WBC RBC Hgb Hct MCV MCH MCHC RDW Plt Count MPV Neut % (Auto) Lymph % (Auto) [place] % (Auto) Eos % (Auto) Baso % (Auto) Neut # Lymph # [place] # Eos # Baso # Sodium Potassium 1.8 L* Chloride Carbon Dioxide Anion Gap BUN Creatinine Est GFR ( Amer) Est GFR (Non-Af Amer) Random Glucose Calcium Magnesium 1.5 L Total Bilirubin AST ALT Alkaline Phosphatase Troponin I < 0.0120 Total Protein Albumin Globulin Albumin/Globulin Ratio Urine Color Yellow Urine Clarity Clear Urine pH 8.0 Ur Specific [place] 1.008 Urine Protein Negative Urine Glucose (UA) Normal Urine Ketones Negative Urine Blood Negative Urine Nitrate Negative Urine Bilirubin Negative Urine Urobilinogen Normal Ur Leukocyte Esterase Neg Urine WBC (Auto) 1 Ur Squamous Epith Cells 2 Hyaline Casts 0-2 Urine HCG, Qual Negative Salicylates Urine Opiates Screen Negative Urine Methadone Screen Negative Acetaminophen Ur Barbiturates Screen Negative Ur Phencyclidine Scrn Negative Ur Amphetamines Screen Negative U Benzodiazepines Scrn Negative U Oth Cocaine Metabols Negative U Cannabinoids Screen Negative Alcohol, Quantitative Assessment & Plan (1) Syncope Assessment and Plan: Patient found unconscious by EMS. Patient was given Narcan which woke up patient. However UDS is Negative. Alcohol level was elevated 137. Patient history of seizure and previous admission for severe hypokalemia. Will resume home seizure medications. K+ replaced; f/u K+ in the AM f/u CT Scan of the head 11/28/16 Status: Acute (2) Hypokalemia Assessment and Plan: * Monitor K+, Mg+ * 40mg PO KCl and 10meq KCl given in the ED * 40mg PO KCl ordered * N/S @100cc/hr + 20mg of KCl running continuously Status: Acute (3) Abnormal EKG Assessment and Plan: * EKG 11/28/16: Prolonged QT; T-wave inversion on lateral leads * f/u EKG 11/29/16 * Admitted for tele monitoring Status: Acute (4) Transaminitis Assessment and Plan: Likely secondary to ETOH abuse. Follow up AST/ALT in the AM Status: Chronic (5) Bipolar disorder Assessment and Plan: Patient would not tell me psychiatry history. However from chart review patient has history of bipolar disorder. 300mg Seroquel PO HS 1mg of Ativan IVP Q4H PRN for anxiety. Status: Chronic (6) Alcohol abuse Status: Chronic (7) Seizure disorder Assessment and Plan: Psychiatry: Dr. [place] 100mg Dilantin TID 750mg Depakote PO Daily 0.5mg Klonopin PO BID Status: Chronic (8) Hx of breast cancer Assessment and Plan: Oncologist: Dr. Yang Patient also with history of uterine cancer also, both in remission Status: Chronic (9) Prophylactic measure Assessment and Plan: * Heparin Q12 * Pepcid 20mg BID * SCDs Status: Acute <Eusebio Culver H - Last Filed: 11/29/16 07:49> Results - Vital Signs Recent Vital Signs: Last Vital Signs Temp 98.8 F 11/28/16 23:35 Pulse 87 11/29/16 04:01 Resp 20 11/28/16 23:35 BP 96/66 L 11/29/16 00:15 Pulse Ox 96 11/28/16 23:35 - Labs Result Diagrams: 11/28/16 08:33 11/28/16 22:19 Labs: Laboratory Results - last 24 hr 11/28/16 11/28/16 15:53 22:19 Sodium 134 Potassium 2.4 L* D 2.4 L* Chloride 89 L Carbon Dioxide 37 H Anion Gap 10 BUN 4 L Creatinine 0.5 L Est GFR ( Amer) > 60 Est GFR (Non-Af Amer) > 60 Random Glucose 129 H Calcium 7.6 L Magnesium 2.7 H 2.1 Total Bilirubin 0.6 AST 108 H D ALT 31 Alkaline Phosphatase 147 H D Total Protein 5.2 L Albumin 2.4 L D Globulin 2.8 Albumin/Globulin Ratio 0.9 L Attending/Attestation - Attestation I have personally seen and examined this patient.: Yes I have fully participated in the care of the patient.: Yes I have reviewed all pertinent clinical information: Yes Notes (Text): 11/29/16 07:37 Medical Attending: Patient was seen and examined by me. Agree with the above note by the resident The patient again has a very low potassium level. She has also used alcohol and there is a lot of conern she may have over dosed on heroine as well. She got narcan in the field and was reportedly responded to it immediate and became awake. The patient denied using heroine. She received both PO and IV potassium and Mg as well. Will place on IVF with KCL. Also because of the alcohol use the patient will be placed on PRN ativan. If later need to can be started on Librium thank you Eusebio Culver
[2016-11-28] MEDS ORDERED: Magnesium Sulfate 1 gm in D5W 1 GM/100 ML BAG IVPB ONE ×2 (14:48→15:13)
[2016-11-28] MEDS: Magnesium Sulfate 1 gm in D5W 1 GM/100 ML BAG IVPB SCH ×2 (14:50→15:13)
[2016-11-28 16:15] LABS: GFR AFRICAN-AMERICAN > 60; GFR NON-AFRICAN AMERICAN > 60
[2016-11-28 16:16] LABS: ALB/GLOB RATIO 0.9 (1.0-2.1); ALT/SGPT 31 U/L (9-52); AST/SGOT 108 U/L (14-36); BLOOD UREA NITROGEN 4 mg/dL (7-17); CALCIUM 7.6 mg/dl (8.6-10.4)
[2016-11-28 16:17] LABS: MAGNESIUM 2.7 mg/dL (1.6-2.3)
[2016-11-28 16:28] LABS: ALBUMIN 2.4 g/dL (3.5-5.0)
[2016-11-28 22:33] LABS: MAGNESIUM 2.1 mg/dL (1.6-2.3)
[2016-11-28] MEDS ORDERED: Potassium Chloride 20 mEq ER Tab PO STA (22:37)
[2016-11-29 08:17] LABS: BASO % 1.3 % (0.0-2.0); EOS # 0.2 K/uL (0.0-0.7); EOS % 5.1 % (0.0-4.0); LYMPH # 1.8 K/uL (1.0-4.3); LYMPH % 50.6 % (20.0-40.0); MEAN CELL VOLUME 104.7 fL (81.0-99.0); MEAN CORPUSCULAR HEMOGLOBIN 35.4 pg (27.0-31.0); MEAN CORPUSCULAR HGB CONC 33.9 g/dL (33.0-37.0); MEAN PLATELET VOLUME 8.1 fL (7.2-11.7); MONO # 0.3 K/uL (0.0-0.8); MONO % 7.9 % (0.0-10.0); NEUT # 1.2 K/uL (1.8-7.0); NEUT % 35.1 % (50.0-75.0); NRBC % 0.2 % (0.0-2.0); RBC 2.69 Mil/uL (3.80-5.20); RED CELL DISTRIBUTION WIDTH 20.1 % (11.5-14.5); WHITE BLOOD COUNT 3.5 K/uL (4.8-10.8)
[2016-11-29 08:24] LABS: HEMOGLOBIN 9.5 g/dL (11.0-16.0)
[2016-11-29 08:29] LABS: AST/SGOT 83 U/L (14-36); GFR AFRICAN-AMERICAN > 60; GFR NON-AFRICAN AMERICAN > 60
[2016-11-29 08:30] LABS: ALT/SGPT 31 U/L (9-52); BLOOD UREA NITROGEN 3 mg/dL (7-17); CALCIUM 7.5 mg/dl (8.6-10.4); MAGNESIUM 1.8 mg/dL (1.6-2.3)
[2016-11-29] MEDS ORDERED: Potassium Chloride 20 mEq ER Tab PO ONE ×2 (09:40→16:00)
--- NOTE | 2016-11-29 09:42 | CP.PCM.PN ---
<Marlys Valentine - Last Filed: 11/29/16 14:30> Subjective - Date & Time of Evaluation Date of Evaluation: 11/29/16 Time of Evaluation: 09:41 - Subjective Subjective: Medicine Progress Note- Dr. Culver Service Patient was seen and examined at bedside in no acute distress. Patient complains of weakness and fatigue for the past 2 days. She reports sleeping well. Patient reports no having a bowel movement for "months" and she has no appetite. Patient denies chest pain, palpitations, shortness of breath, nausea, vomiting, and diarrhea. Objective - Vital Signs/Intake and Output Vital Signs (last 24 hours): Temp Pulse Resp BP Pulse Ox 98.1 F 80 18 103/69 99 11/29/16 07:25 11/29/16 07:25 11/29/16 07:25 11/29/16 07:25 11/29/16 07:25 Intake and Output: 11/29/16 11/29/16 06:59 18:59 Intake Total 920 Balance 920 - Medications Medications: Current Medications Clonazepam (Klonopin) 0.5 mg PO BID COUNT INCLUDES [facility] Last Admin: 11/28/16 17:57 Dose: 0.5 mg Divalproex Sodium (Depakote Er) 750 mg PO DAILY COUNT INCLUDES [facility] Famotidine (Pepcid) 20 mg PO BID COUNT INCLUDES THE [facility] Heparin Sodium (Porcine) (Heparin) 5,000 units SC Q12 COUNT [facility]CLUDES [facility] Last Admin: 11/28/16 21:59 Dose: 5,000 units Potassium Chloride 20 meq/ (Sodium Chloride) 1,010 mls @ 100 mls/hr IV .Q10H6M COUNT INCLUDES [facility] Last Admin: 11/29/16 03:35 Dose: 100 mls/hr Lorazepam (Ativan) 1 mg IVP Q4H PRN PRN Reason: Anxiety Ondansetron HCl (Zofran Inj) 4 mg IVP Q6H PRN PRN Reason: Nausea/Vomiting Phenytoin Sodium (Dilantin) 100 mg PO TID COUNT INCLUDES [facility] Last Admin: 11/28/16 17:57 Dose: 100 mg Potassium Chloride (K-Dur 20 Meq Er Tab) 40 meq PO ONCE ONE Stop: 11/29/16 09:41 Quetiapine Fumarate (Seroquel) 300 mg PO HS COUNT [facility]CLUDES [facility] Last Admin: 11/28/16 21:59 Dose: 300 mg - Labs Labs: 11/29/16 07:52 11/29/16 07:52 - Constitutional Appears: No Acute Distress - Head Exam Head Exam: NORMAL INSPECTION, NORMOCEPHALIC - Eye Exam Eye Exam: EOMI, Normal appearance - ENT Exam ENT Exam: Mucous Membranes Moist - Neck Exam Neck Exam: Full ROM, Normal Inspection - Respiratory Exam Respiratory Exam: Clear to Ausculation Bilateral, NORMAL BREATHING PATTERN. absent: Rhonchi, Wheezes - Cardiovascular Exam Cardiovascular Exam: REGULAR RHYTHM, +S1, +S2 - GI/Abdominal Exam GI & Abdominal Exam: Soft, Normal Bowel Sounds. absent: Tenderness - Extremities Exam Extremities Exam: Normal Inspection. absent: Calf Tenderness, Pedal Edema, Tenderness - Neurological Exam Neurological Exam: Alert, Awake, Oriented x3 - Psychiatric Exam Psychiatric exam: Normal Affect, Normal Mood - Skin Skin Exam: Dry, Intact, Normal Color, Warm Assessment and Plan (1) Syncope Assessment & Plan: Patient found unconscious by EMS. Patient was given Narcan which woke up patient. However UDS is Negative. Alcohol level was elevated 137. Patient history of seizure and previous admission for severe hypokalemia. Will resume home seizure medications. K+ 3.0 on 11/29/16 (1.5 on admission) K+ replaced; continue f/u K+ f/u CT Scan of the head 11/28/16 Status: Acute (2) Hypokalemia Assessment & Plan: Monitor K+, Mg+ 40mg PO KCl and 10meq KCl given in the ED 40mg PO KCl x 2 on 11/29/16 N/S @100cc/hr + 20mg of KCl running continuously (plan to discontinue IVF tomorrow, 11/30) Status: Acute (3) Alcohol abuse Assessment & Plan: YULISSA on admission 137 Status: Chronic (4) Hx of breast cancer Assessment & Plan: Oncologist: Dr. Yang Patient also with history of uterine cancer also, both in remission Status: Chronic (5) Abnormal EKG Assessment & Plan: EKG 11/28/16: Prolonged QT; T-wave inversion on lateral leads EKG 11/29/16: NSR at 87bpm, prolonged QT Admitted for tele monitoring Status: Acute (6) Bipolar disorder Assessment & Plan: Patient would not tell me psychiatry history. However from chart review patient has history of bipolar disorder. 300mg Seroquel PO HS 1mg of Ativan IVP Q4H PRN for anxiety. Status: Chronic (7) Seizure disorder Assessment & Plan: Psychiatry: Dr. [place] 100mg Dilantin TID 750mg Depakote PO Daily 0.5mg Klonopin PO BID Status: Chronic (8) Transaminitis Assessment & Plan: Likely secondary to ETOH abuse. Follow up AST/ALT: AST 83 on 11/29/16 (149 on admission); ALT: 31 on 11/29/16 Status: Chronic (9) Prophylactic measure Assessment & Plan: Heparin Q12 Pepcid 20mg BID SCDs Status: Acute <AbiolaEusebio H - Last Filed: 11/29/16 17:41> Objective - Vital Signs/Intake and Output Vital Signs (last 24 hours): Temp Pulse Resp BP Pulse Ox 98.3 F 98 H 18 110/76 98 11/29/16 15:45 11/29/16 15:45 11/29/16 15:45 11/29/16 15:45 11/29/16 15:45 Intake and Output: 11/29/16 11/29/16 06:59 18:59 Intake Total 920 800 Balance 920 800 - Medications Medications: Current Medications Clonazepam (Klonopin) 0.5 mg PO BID COUNT INCLUDES [facility] Last Admin: 11/29/16 17:13 Dose: 0.5 mg Divalproex Sodium (Depakote Er) 750 mg PO DAILY COUNT INCLUDES [facility] Last Admin: 11/29/16 11:50 Dose: 750 mg Famotidine (Pepcid) 20 mg PO BID COUNT [facility]CLUDES [facility] Last Admin: 11/29/16 17:12 Dose: 20 mg Heparin Sodium (Porcine) (Heparin) 5,000 units SC Q12 COUNT INCLUDES [facility] Last Admin: 11/29/16 11:50 Dose: 5,000 units Potassium Chloride 20 meq/ (Sodium Chloride) 1,010 mls @ 100 mls/hr IV .Q10H6M COUNT INCLUDES [facility] Last Admin: 11/29/16 16:20 Dose: 100 mls/hr Lorazepam (Ativan) 1 mg IVP Q4H PRN PRN Reason: Anxiety Ondansetron HCl (Zofran Inj) 4 mg IVP Q6H PRN PRN Reason: Nausea/Vomiting Phenytoin Sodium (Dilantin) 100 mg PO TID COUNT INCLUDES [facility] Last Admin: 11/29/16 17:12 Dose: 100 mg Quetiapine Fumarate (Seroquel) 300 mg PO HS COUNT INCLUDES [facility] Last Admin: 11/28/16 21:59 Dose: 300 mg - Labs Labs: 11/29/16 07:52 11/29/16 07:52 Attending/Attestation - Attestation I have personally seen and examined this patient.: Yes I have fully participated in the care of the patient.: Yes I have reviewed all pertinent clinical information, including history, physical exam and plan: Yes Notes (Text): Medical attending: Patient was seen and examined by me, agrees the above note by medical writer. The patient was not entirely cooperative early in the morning during rounds. By the time I came by to rapid with the medical residents she was much more cooperative. As mentioned previously the patient has a history of coming to the hospital with severe hypokalemia last night we gave her intravenous fluids with KCl in it , this morning her potassium is now 3.0. We'll give a little additional oral potassium as well the next challenges to discontinue this fluid and see how her potassium does tomorrow from previous experience I note that it's can drop rather quickly With regards to the EKG changes due to the low potassium, she hasn't had any runs of V. tach on telemetry. The QRS is not wide also the QT intervals seems looks much better than when she came in She's not having any symptoms of alcohol withdrawal on examination when we asked her she doesn't have any symptoms of alcohol withdrawal. With regards to her being found unconscious and given Narcan and responding to Narcansurprisingly the urine drug screen was done and it was negative for any opiates or heroin . It is possible that she could've taken something else that was not picked up on the urine drug screen however the patient also explains that she wasn't taking any illicit substances. Thank you very much, Eusebio Culver 11/29/16 17:41
--- NOTE | 2016-11-29 10:33 | CT ---
PROCEDURE: CT HEAD WITHOUT CONTRAST. HISTORY: r/o intracranial bleed COMPARISON: None available. TECHNIQUE: Axial computed tomography images were obtained through the head/brain without intravenous contrast. Radiation dose: Total exam DLP = 894.87 mGy-cm. This CT exam was performed using one or more of the following dose reduction techniques: Automated exposure control, adjustment of the mA and/or kV according to patient size, and/or use of iterative reconstruction technique. FINDINGS: HEMORRHAGE: No intracranial hemorrhage. BRAIN: No mass effect or edema. No atrophy or chronic microvascular ischemic changes. VENTRICLES: Unremarkable. No hydrocephalus. CALVARIUM: Unremarkable. PARANASAL SINUSES: Unremarkable as visualized. No significant inflammatory changes. MASTOID AIR CELLS: Unremarkable as visualized. No inflammatory changes. OTHER FINDINGS: None. IMPRESSION: Normal CT of the Head. No intracranial mass, hemorrhage or evidence of acute infarct.
--- NOTE | 2016-11-29 11:22 | CARD ---
APPROVED REPORT EKG Measurement Heart [id number] <Conclusion> Normal sinus rhythm ST & T wave abnormality, consider inferolateral ischemia Prolonged QT Abnormal ECG
--- NOTE | 2016-11-30 07:50 | CP.PCM.PN ---
<Marlys Valentine - Last Filed: 11/30/16 14:46> Subjective - Date & Time of Evaluation Date of Evaluation: 11/30/16 Time of Evaluation: 07:48 - Subjective Subjective: Medicine Progress Note- Dr. Culver Service Patient was seen and examined at bedside in no acute distress. Patient complains of weakness and dizziness with standing. She reports having muscle aches in her legs. She reports eating better than yesterday and more than she eats a home. She says she doesnt have an appetite at home since her mother's passing in May 2016. Patient reports no having a bowel movement for "weeks ". Patient denies chest pain, palpitations, shortness of breath, dysuria, nausea , vomiting, and diarrhea. Objective - Vital Signs/Intake and Output Vital Signs (last 24 hours): Temp Pulse Resp BP Pulse Ox 98.0 F 95 H 20 97/68 L 97 11/29/16 23:40 11/30/16 04:39 11/29/16 23:40 11/29/16 23:40 11/29/16 23:40 Intake and Output: 11/30/16 11/30/16 06:59 18:59 Intake Total 1170 Balance 1170 - Medications Medications: Current Medications Clonazepam (Klonopin) 0.5 mg PO BID [facility] Last Admin: 11/29/16 17:13 Dose: 0.5 mg Divalproex Sodium (Depakote Er) 750 mg PO DAILY [facility] Last Admin: 11/29/16 11:50 Dose: 750 mg Famotidine (Pepcid) 20 mg PO BID [facility] Last Admin: 11/29/16 17:12 Dose: 20 mg Heparin Sodium (Porcine) (Heparin) 5,000 units SC Q12 [facility] Last Admin: 11/29/16 22:21 Dose: 5,000 units Potassium Chloride 20 meq/ (Sodium Chloride) 1,010 mls @ 100 mls/hr IV .Q10H6M [facility] Last Admin: 11/30/16 03:27 Dose: 100 mls/hr Lorazepam (Ativan) 1 mg IVP Q4H PRN PRN Reason: Anxiety Ondansetron HCl (Zofran Inj) 4 mg IVP Q6H PRN PRN Reason: Nausea/Vomiting Phenytoin Sodium (Dilantin) 100 mg PO TID [facility] Last Admin: 11/29/16 17:12 Dose: 100 mg Quetiapine Fumarate (Seroquel) 300 mg PO HS [facility] Last Admin: 11/29/16 22:20 Dose: 300 mg - Labs Labs: 11/29/16 07:52 11/29/16 07:52 - Constitutional Appears: No Acute Distress - Head Exam Head Exam: NORMAL INSPECTION, NORMOCEPHALIC - Eye Exam Eye Exam: EOMI, Normal appearance - ENT Exam ENT Exam: Mucous Membranes Moist - Neck Exam Neck Exam: Full ROM, Normal Inspection - Respiratory Exam Respiratory Exam: Clear to Ausculation Bilateral, NORMAL BREATHING PATTERN. absent: Rhonchi, Wheezes - Cardiovascular Exam Cardiovascular Exam: REGULAR RHYTHM, +S1 - GI/Abdominal Exam GI & Abdominal Exam: Soft, Normal Bowel Sounds. absent: Tenderness (sore at injection sites) - Extremities Exam Extremities Exam: Full ROM, Normal Inspection. absent: Calf Tenderness, Pedal Edema, Tenderness - Neurological Exam Neurological Exam: Alert, Awake, Oriented x3 - Psychiatric Exam Psychiatric exam: Normal Affect, Normal Mood - Skin Skin Exam: Dry, Intact, Normal Color, Warm Assessment and Plan (1) Syncope Assessment & Plan: Patient found unconscious by EMS. Patient was given Narcan which woke up patient. However UDS is Negative. Alcohol level was elevated 137. Patient history of seizure and previous admission for severe hypokalemia. Will resume home seizure medications. K+ 4.2 on 11/30/16 (1.5 on admission) K+ replaced; Discontinue K+ in IVF Continue IVF Start Albumin 12.5g x 2 on 11/30/16 CT Scan of the head- normal Status: Acute (2) Hypokalemia Assessment & Plan: Likely secondary to malnutrition Monitor K+, Mg+ 40mg PO KCl and 10meq KCl given in the ED 40mg PO KCl x 2 on 11/29/16 K+: 4.2 on 11/30/16 Discontinue (11/30/16) N/S @100cc/hr + 20mg of KCl running continuously Start N/S @100cc/hr + Albumin 12.5g x 2 Start Megace 40mg BID on 11/30/16 Status: Acute (3) Alcohol abuse Assessment & Plan: YULISSA on admission 137 Status: Chronic (4) Hx of breast cancer Assessment & Plan: Oncologist: Dr. Yang Patient also with history of uterine cancer, both in remission Status: Chronic (5) Abnormal EKG Assessment & Plan: EKG 11/28/16: Prolonged QT; T-wave inversion on lateral leads EKG 11/29/16: NSR at 87bpm, prolonged QT Admitted for tele monitoring Status: Acute (6) Bipolar disorder Assessment & Plan: Patient would not tell me psychiatry history. However from chart review patient has history of bipolar disorder. 300mg Seroquel PO HS 1mg of Ativan IVP Q4H PRN for anxiety. Status: Chronic (7) Seizure disorder Assessment & Plan: Psychiatry: Dr. [place] 100mg Dilantin TID 750mg Depakote PO Daily 0.5mg Klonopin PO BID Status: Chronic (8) Transaminitis Assessment & Plan: Likely secondary to ETOH abuse. AST/ALT: AST 83 on 11/29/16 (149 on admission); ALT: 31 on 11/29/16 AST- 105, AST 32 on 11/30/16 Status: Chronic (9) Prophylactic measure Assessment & Plan: Heparin Q12 Pepcid 20mg BID SCDs Status: Acute <Eusebio Culver H - Last Filed: 11/30/16 15:21> Objective - Vital Signs/Intake and Output Vital Signs (last 24 hours): Temp Pulse Resp BP Pulse Ox 98.0 F 84 20 97/68 L 97 11/29/16 23:40 11/30/16 08:19 11/29/16 23:40 11/29/16 23:40 11/29/16 23:40 Intake and Output: 11/30/16 11/30/16 06:59 18:59 Intake Total 1170 Balance 1170 - Medications Medications: Current Medications Clonazepam (Klonopin) 0.5 mg PO BID [facility] Last Admin: 11/30/16 09:37 Dose: 0.5 mg Divalproex Sodium (Depakote Er) 750 mg PO DAILY [facility] Last Admin: 11/30/16 09:38 Dose: 750 mg Famotidine (Pepcid) 20 mg PO BID [facility] Last Admin: 11/30/16 09:37 Dose: 20 mg Heparin Sodium (Porcine) (Heparin) 5,000 units SC Q12 [facility] Last Admin: 11/30/16 09:39 Dose: 5,000 units Sodium Chloride (Sodium Chloride 0.9%) 1,000 mls @ 100 mls/hr IV .Q10H [facility] Last Admin: 11/30/16 12:00 Dose: 100 mls/hr Lorazepam (Ativan) 1 mg IVP Q4H PRN PRN Reason: Anxiety Megestrol Acetate (Megace) 40 mg PO BID [facility] Ondansetron HCl (Zofran Inj) 4 mg IVP Q6H PRN PRN Reason: Nausea/Vomiting Phenytoin Sodium (Dilantin) 100 mg PO TID [facility] Last Admin: 11/30/16 13:25 Dose: 100 mg Quetiapine Fumarate (Seroquel) 300 mg PO HS [facility] Last Admin: 11/29/16 22:20 Dose: 300 mg - Labs Labs: 11/30/16 08:09 11/30/16 08:09 Attending/Attestation - Attestation I have personally seen and examined this patient.: Yes I have fully participated in the care of the patient.: Yes I have reviewed all pertinent clinical information, including history, physical exam and plan: Yes Notes (Text): 11/30/16 15:20 Medical attending: Patient was seen and examined by me, agrees the above note by medical management trainer. The patient has a potassium level that's much better now. Were to stop giving the KCl and I like to see what happens with her potassium level without giving supplements. I'm concerned we'll see a big drop both we'll see. We encouraged the patient to eat. We are can give albumin x 2. The patient is not having any alcohol withdrawal symptoms at this time Thank you very much, Eusebio Culver
[2016-11-30 08:18] LABS: BASO % 1.1 % (0.0-2.0); EOS # 0.2 K/uL (0.0-0.7); HEMOGLOBIN 10.4 g/dL (11.0-16.0); LYMPH # 2.1 K/uL (1.0-4.3); LYMPH % 45.9 % (20.0-40.0); MEAN CELL VOLUME 106.1 fL (81.0-99.0); MEAN CORPUSCULAR HEMOGLOBIN 35.4 pg (27.0-31.0); MEAN CORPUSCULAR HGB CONC 33.3 g/dL (33.0-37.0); MEAN PLATELET VOLUME 8.1 fL (7.2-11.7); MONO # 0.3 K/uL (0.0-0.8); MONO % 6.9 % (0.0-10.0); NEUT # 1.8 K/uL (1.8-7.0); NEUT % 41.1 % (50.0-75.0); NRBC % 0.2 % (0.0-2.0); RBC 2.93 Mil/uL (3.80-5.20); RED CELL DISTRIBUTION WIDTH 20.6 % (11.5-14.5); WHITE BLOOD COUNT 4.5 K/uL (4.8-10.8)
[2016-11-30 08:35] LABS: ALBUMIN 2.1 g/dL (3.5-5.0)
[2016-11-30 08:37] LABS: GFR AFRICAN-AMERICAN > 60; GFR NON-AFRICAN AMERICAN > 60
[2016-11-30 08:38] LABS: ALB/GLOB RATIO 0.8 (1.0-2.1); ALT/SGPT 32 U/L (9-52); AST/SGOT 105 U/L (14-36)
[2016-11-30 08:39] LABS: CALCIUM 7.8 mg/dl (8.6-10.4); MAGNESIUM 1.5 mg/dL (1.6-2.3)
[2016-11-30 08:43] LABS: BLOOD UREA NITROGEN < 2 mg/dL (7-17)
[2016-11-30] MEDS ORDERED: Sodium Chloride 0.9% 1,000 ML IV SCH (11:30)
[2016-11-30] MEDS ORDERED: Albumin Human 25% (12.5 gm/50 ml) IV ONE ×2 (12:00→13:00)
[2016-11-30] MEDS: Magnesium Sulfate 1 gm in D5W 1 GM/100 ML BAG IVPB SCH (23:46)
[2016-12-01] MEDS: Magnesium Sulfate 1 gm in D5W 1 GM/100 ML BAG IVPB SCH (00:34)
[2016-12-01 01:06] VITALS: RESP 20
[2016-12-01 06:34] LABS: BASO % 0.7 % (0.0-2.0); EOS # 0.2 K/uL (0.0-0.7); EOS % 5.3 % (0.0-4.0); HEMOGLOBIN 9.9 g/dL (11.0-16.0); LYMPH # 1.8 K/uL (1.0-4.3); LYMPH % 40.9 % (20.0-40.0); MEAN CELL VOLUME 105.3 fL (81.0-99.0); MEAN CORPUSCULAR HGB CONC 33.2 g/dL (33.0-37.0); MEAN PLATELET VOLUME 8.3 fL (7.2-11.7); MONO # 0.3 K/uL (0.0-0.8); NEUT % 46.1 % (50.0-75.0); NRBC % 0.1 % (0.0-2.0); RBC 2.82 Mil/uL (3.80-5.20); RED CELL DISTRIBUTION WIDTH 20.5 % (11.5-14.5); WHITE BLOOD COUNT 4.3 K/uL (4.8-10.8)
[2016-12-01 07:46] LABS: ALBUMIN 2.1 g/dL (3.5-5.0)
[2016-12-01 07:49] LABS: ALB/GLOB RATIO 0.8 (1.0-2.1); AST/SGOT 79 U/L (14-36); GFR AFRICAN-AMERICAN > 60; GFR NON-AFRICAN AMERICAN > 60
[2016-12-01 07:50] LABS: ALT/SGPT 31 U/L (9-52); BLOOD UREA NITROGEN < 2 mg/dL (7-17); CALCIUM 8.2 mg/dl (8.6-10.4); MAGNESIUM 2.1 mg/dL (1.6-2.3)
[2016-12-01 08:14] VITALS: BP 114/81; PULSE 86; TEMP 97.6; O2SAT 100
--- NOTE | 2016-12-01 09:41 | CP.PCM.PN ---
Subjective - Date & Time of Evaluation Date of Evaluation: 12/01/16 Time of Evaluation: 09:41 Objective - Vital Signs/Intake and Output Vital Signs (last 24 hours): Temp Pulse Resp BP Pulse Ox 97.6 F 86 20 114/81 100 12/01/16 08:13 12/01/16 08:13 12/01/16 08:13 12/01/16 08:13 12/01/16 08:13 Intake and Output: 12/01/16 12/01/16 06:59 18:59 Intake Total 900 Balance 900 - Medications Medications: Current Medications Clonazepam (Klonopin) 0.5 mg PO BID [facility] Last Admin: 12/01/16 09:23 Dose: 0.5 mg Divalproex Sodium (Depakote Er) 750 mg PO DAILY [facility] Last Admin: 12/01/16 09:23 Dose: 750 mg Famotidine (Pepcid) 20 mg PO BID [facility] Last Admin: 12/01/16 09:23 Dose: 20 mg Heparin Sodium (Porcine) (Heparin) 5,000 units SC Q12 [facility] Last Admin: 12/01/16 09:24 Dose: 5,000 units Sodium Chloride (Sodium Chloride 0.9%) 1,000 mls @ 100 mls/hr IV .Q10H [facility] Last Admin: 11/30/16 12:00 Dose: 100 mls/hr Lorazepam (Ativan) 1 mg IVP Q4H PRN PRN Reason: Anxiety Megestrol Acetate (Megace) 40 mg PO BID [facility] Last Admin: 12/01/16 09:23 Dose: 40 mg Ondansetron HCl (Zofran Inj) 4 mg IVP Q6H PRN PRN Reason: Nausea/Vomiting Phenytoin Sodium (Dilantin) 100 mg PO TID [facility] Last Admin: 12/01/16 09:23 Dose: 100 mg Quetiapine Fumarate (Seroquel) 300 mg PO HS [facility] Last Admin: 11/30/16 21:43 Dose: 300 mg - Labs Labs: 12/01/16 06:18 12/01/16 06:18 Assessment and Plan (1) Syncope Status: Acute (2) Hypokalemia Status: Acute (3) Alcohol abuse Status: Chronic (4) Hx of breast cancer Status: Chronic (5) Abnormal EKG Status: Acute (6) Bipolar disorder Status: Chronic (7) Seizure disorder Status: Chronic (8) Transaminitis Status: Chronic (9) Prophylactic measure Status: Acute
--- NOTE | 2016-12-01 10:54 | CP.PCM.DIS ---
<Marlys Valentine - Last Filed: 12/01/16 20:28> Provider - Provider Date of Admission: 11/28/16 15:28 Attending physician: Eusebio Culver DO Time Spent in preparation of Discharge (in minutes): 45 Diagnosis - Discharge Diagnosis (1) Syncope Status: Resolved Comment: See hospital summary for more details. (2) Hypokalemia Status: Resolved Comment: See hospital summary for more details. (3) Alcohol abuse Status: Chronic Comment: See hospital summary for more details. (4) Hx of breast cancer Status: Chronic Comment: See hospital summary for more details. (5) Abnormal EKG Status: Resolved Comment: See hospital summary for more details. (6) Bipolar disorder Status: Chronic Comment: See hospital summary for more details. (7) Seizure disorder Status: Chronic Comment: See hospital summary for more details. (8) Transaminitis Status: Chronic Comment: See hospital summary for more details. Hospital Course - Lab Results Lab Results: Most Recent Lab Values WBC 4.3 K/uL (4.8-10.8) L 12/01/16 06:18 RBC 2.82 Mil/uL (3.80-5.20) L 12/01/16 06:18 Hgb 9.9 g/dL (11.0-16.0) L 12/01/16 06:18 Hct 29.7 % (34.0-47.0) L 12/01/16 06:18 MCV 105.3 fL (81.0-99.0) H 12/01/16 06:18 MCH 35.0 pg (27.0-31.0) H 12/01/16 06:18 MCHC 33.2 g/dL (33.0-37.0) 12/01/16 06:18 RDW 20.5 % (11.5-14.5) H 12/01/16 06:18 Plt Count 196 K/uL (130-400) 12/01/16 06:18 MPV 8.3 fL (7.2-11.7) 12/01/16 06:18 Neut % (Auto) 46.1 % (50.0-75.0) L 12/01/16 06:18 Lymph % (Auto) 40.9 % (20.0-40.0) H 12/01/16 06:18 [place] % (Auto) 7.0 % (0.0-10.0) 12/01/16 06:18 Eos % (Auto) 5.3 % (0.0-4.0) H 12/01/16 06:18 Baso % (Auto) 0.7 % (0.0-2.0) 12/01/16 06:18 Neut # 2.0 K/uL (1.8-7.0) 12/01/16 06:18 Lymph # 1.8 K/uL (1.0-4.3) 12/01/16 06:18 [place] # 0.3 K/uL (0.0-0.8) 12/01/16 06:18 Eos # 0.2 K/uL (0.0-0.7) 12/01/16 06:18 Baso # 0.0 K/uL (0.0-0.2) 12/01/16 06:18 Sodium 138 mmol/L (132-148) 12/01/16 06:18 Potassium 3.5 mmol/L (3.6-5.2) L 12/01/16 06:18 Chloride 105 mmol/L (98-107) 12/01/16 06:18 Carbon Dioxide 28 mmol/L (22-30) 12/01/16 06:18 Anion Gap 9 (10-20) L 12/01/16 06:18 BUN < 2 mg/dL (7-17) L 12/01/16 06:18 Creatinine 0.4 MG/DL (0.7-1.2) L 12/01/16 06:18 Est GFR ( Amer) > 60 12/01/16 06:18 Est GFR (Non-Af Amer) > 60 12/01/16 06:18 Random Glucose 76 mg/dL (65-105) 12/01/16 06:18 Calcium 8.2 mg/dl (8.6-10.4) L 12/01/16 06:18 Phosphorus 4.4 mg/dL (2.5-4.5) 12/01/16 06:18 Magnesium 2.1 mg/dL (1.6-2.3) 12/01/16 06:18 Total Bilirubin 0.5 mg/dL (0.2-1.3) 12/01/16 06:18 AST 79 U/L (14-36) H D 12/01/16 06:18 ALT 31 U/L (9-52) 12/01/16 06:18 Alkaline Phosphatase 118 U/L (38-126) 12/01/16 06:18 Troponin I < 0.0120 ng/mL (0.00-0.120) 11/28/16 09:22 Total Protein 4.7 g/dL (6.3-8.3) L 12/01/16 06:18 Albumin 2.1 g/dL (3.5-5.0) L 12/01/16 06:18 Globulin 2.6 gm/dL (2.2-3.9) 12/01/16 06:18 Albumin/Globulin Ratio 0.8 (1.0-2.1) L 12/01/16 06:18 Urine Color Yellow (YELLOW) 11/28/16 11:52 Urine Clarity Clear (Clear) 11/28/16 11:52 Urine pH 8.0 (5.0-8.0) 11/28/16 11:52 Ur Specific [place] 1.008 (1.003-1.030) 11/28/16 11:52 Urine Protein Negative mg/dL (NEGATIVE) 11/28/16 11:52 Urine Glucose (UA) Normal mg/dL (Normal) 11/28/16 11:52 Urine Ketones Negative mg/dL (NEGATIVE) 11/28/16 11:52 Urine Blood Negative (NEGATIVE) 11/28/16 11:52 Urine Nitrate Negative (NEGATIVE) 11/28/16 11:52 Urine Bilirubin Negative (NEGATIVE) 11/28/16 11:52 Urine Urobilinogen Normal mg/dL (0.2-1.0) 11/28/16 11:52 Ur Leukocyte Esterase Neg Frank/uL (Negative) 11/28/16 11:52 Urine WBC (Auto) 1 /hpf (0-5) 11/28/16 11:52 Ur Squamous Epith Cells 2 /hpf (0-5) 11/28/16 11:52 Hyaline Casts 0-2 /lpf (0-2) 11/28/16 11:52 Urine HCG, Qual Negative (NEGATIVE) 11/28/16 11:52 Salicylates < 1.0 mg/dL 1 11/28/16 08:33 Urine Opiates Screen Negative (NEGATIVE) 11/28/16 11:52 Urine Methadone Screen Negative (NEGATIVE) 11/28/16 11:52 Acetaminophen < 10.0 ug/mL (10.0-30.0) L 11/28/16 08:33 Ur Barbiturates Screen Negative (NEGATIVE) 11/28/16 11:52 Ur Phencyclidine Scrn Negative (NEGATIVE) 11/28/16 11:52 Ur Amphetamines Screen Negative (NEGATIVE) 11/28/16 11:52 U Benzodiazepines Scrn Negative (NEGATIVE) 11/28/16 11:52 U Oth Cocaine Metabols Negative (NEGATIVE) 11/28/16 11:52 U Cannabinoids Screen Negative (NEGATIVE) 11/28/16 11:52 Alcohol, Quantitative 137 mg/dl (0-10) H 11/28/16 08:33 - Hospital Course Hospital Course: CC: "I passed out" HPI: 35 year old female with a history of seizures, hypokalemia, asthma, breast and uterine cancer presents to the ED after syncopal episode at 6:30am this morning per boyfriend. Per boyfriend the patient was found unconsciouses and he preceded by calling the ambulance. Per EMS patient was given Narcan. Patient states she does not recall any of these events. Patient denies illicit substance use. Patient denies chronic alcohol use. Patient states the night previously she drank a few beers and a few shots but nothing else. Patient states she has not had seizures in the past due to alcohol withdraw. Per patient she is nauseous and vomited once in the ambulance and currently in the ED only has dry heaves. Per patient she has a headache and has had a decrease in her appetite for the past month. Per patient she denies chest pain, shortness of breath, palpitations, diarrhea, constipation, dysuria, or blood in her urine. Patient was admitted for syncope. In the field, patient was given narcan and became alert. In the ED, EKG showed normal sinus rhythm at 98bpm, with ST and T wave abnormality, chest xray showed. Patient's alcohol level was 137 and urine drug screen was negative. ROMIs were negative. Once admitted, patient was given IV fluids. Patient was found to have severe hypokalemia at 1.5 and had K+ replaced. CT of the head showed no abnormalities. Repeat EKGs showed prolonged QT and Twave inversions, patient was monitored on telemetry. Patient continued to receive K+ replacement. Patient has a history of seizure disorder, home medications were continued. Then patient was found to have low protein and albumin, which was then replace via IV. Patient is stable for discharge to home as per Dr. Culver. This is a summary of the hospital course. Please see chart for more details. Patient is stable to discharge to home as per Dr. Culver. Patient should continue home medications and start new medication listed below: Depakote 750mg daily Zofran 4mg daily Dilantin 100mg three times daily Potassium 20mEq daily (new) Patient should follow up with their primary care doctor within one week of discharge. Patient should follow up with their redrying machine operator/oncologist, Dr. Yang, within one week of discharge. These instructions have been discussed and understood by patient. If symptoms reoccur or patient has any concern, patient should return to the ED. Discharge Exam - Head Exam Head Exam: NORMAL INSPECTION, NORMOCEPHALIC - Eye Exam Eye Exam: EOMI, Normal appearance - ENT Exam ENT Exam: Mucous Membranes Moist - Neck Exam Neck exam: Full Rom, Normal Inspection - Respiratory Exam Respiratory Exam: Clear to PA & Lateral, NORMAL BREATHING PATTERN, UNREMARKABLE. absent: Wheezes - Cardiovascular Exam Cardiovascular Exam: REGULAR RHYTHM, +S1, +S2 - GI/Abdominal Exam GI & Abdominal Exam: Normal Bowel Sounds, Soft, Unremarkable. absent: Tenderness - Extremities Exam Extremities exam: normal inspection - Neurological Exam Neurological exam: Alert, Oriented x3 - Psychiatric Exam Psychiatric exam: Normal Affect, Normal Mood - Skin Skin Exam: Dry, Intact, Normal Color, Warm Discharge Plan - Discharge Medications Prescriptions: Divalproex [Depakote ER] 750 mg PO QAM #30 Ondansetron [Zofran] 4 mg PO BID #60 tab Phenytoin, Extended [Dilantin] 100 mg PO TID #90 cer Potassium Chloride [K-Dur 20 mEq ER Tab] 20 meq PO DAILY #30 tab - Follow Up Plan Condition: SERIOUS Disposition: HOME/ ROUTINE Instructions: Phenytoin (By mouth), Potassium Chloride (By mouth), Ondansetron (By mouth), Divalproex (By mouth), Hypokalemia (DC), Syncope (DC) Additional Instructions: Patient is stable to discharge to home as per Dr. Culver. Patient should continue home medications and start new medication listed below: Depakote 750mg daily Zofran 4mg daily Dilantin 100mg three times daily Potassium 20mEq daily (new) Patient should follow up with their primary care doctor within one week of discharge. Patient should follow up with their redrying machine operator/oncologist, Dr. Yang, within one week of discharge. These instructions have been discussed and understood by patient. If symptoms reoccur or patient has any concern, patient should return to the ED. <Eusebio Culver - Last Filed: 12/02/16 07:52> Provider - Provider Date of Admission: 11/28/16 15:28 Attending physician: Eusebio Culver DO Hospital Course - Lab Results Lab Results: Most Recent Lab Values WBC 4.3 K/uL (4.8-10.8) L 12/01/16 06:18 RBC 2.82 Mil/uL (3.80-5.20) L 12/01/16 06:18 Hgb 9.9 g/dL (11.0-16.0) L 12/01/16 06:18 Hct 29.7 % (34.0-47.0) L 12/01/16 06:18 MCV 105.3 fL (81.0-99.0) H 12/01/16 06:18 MCH 35.0 pg (27.0-31.0) H 12/01/16 06:18 MCHC 33.2 g/dL (33.0-37.0) 12/01/16 06:18 RDW 20.5 % (11.5-14.5) H 12/01/16 06:18 Plt Count 196 K/uL (130-400) 12/01/16 06:18 MPV 8.3 fL (7.2-11.7) 12/01/16 06:18 Neut % (Auto) 46.1 % (50.0-75.0) L 12/01/16 06:18 Lymph % (Auto) 40.9 % (20.0-40.0) H 12/01/16 06:18 [place] % (Auto) 7.0 % (0.0-10.0) 12/01/16 06:18 Eos % (Auto) 5.3 % (0.0-4.0) H 12/01/16 06:18 Baso % (Auto) 0.7 % (0.0-2.0) 12/01/16 06:18 Neut # 2.0 K/uL (1.8-7.0) 12/01/16 06:18 Lymph # 1.8 K/uL (1.0-4.3) 12/01/16 06:18 [place] # 0.3 K/uL (0.0-0.8) 12/01/16 06:18 Eos # 0.2 K/uL (0.0-0.7) 12/01/16 06:18 Baso # 0.0 K/uL (0.0-0.2) 12/01/16 06:18 Sodium 138 mmol/L (132-148) 12/01/16 06:18 Potassium 3.5 mmol/L (3.6-5.2) L 12/01/16 06:18 Chloride 105 mmol/L (98-107) 12/01/16 06:18 Carbon Dioxide 28 mmol/L (22-30) 12/01/16 06:18 Anion Gap 9 (10-20) L 12/01/16 06:18 BUN < 2 mg/dL (7-17) L 12/01/16 06:18 Creatinine 0.4 MG/DL (0.7-1.2) L 12/01/16 06:18 Est GFR ( Amer) > 60 12/01/16 06:18 Est GFR (Non-Af Amer) > 60 12/01/16 06:18 Random Glucose 76 mg/dL (65-105) 12/01/16 06:18 Calcium 8.2 mg/dl (8.6-10.4) L 12/01/16 06:18 Phosphorus 4.4 mg/dL (2.5-4.5) 12/01/16 06:18 Magnesium 2.1 mg/dL (1.6-2.3) 12/01/16 06:18 Total Bilirubin 0.5 mg/dL (0.2-1.3) 12/01/16 06:18 AST 79 U/L (14-36) H D 12/01/16 06:18 ALT 31 U/L (9-52) 12/01/16 06:18 Alkaline Phosphatase 118 U/L (38-126) 12/01/16 06:18 Troponin I < 0.0120 ng/mL (0.00-0.120) 11/28/16 09:22 Total Protein 4.7 g/dL (6.3-8.3) L 12/01/16 06:18 Albumin 2.1 g/dL (3.5-5.0) L 12/01/16 06:18 Globulin 2.6 gm/dL (2.2-3.9) 12/01/16 06:18 Albumin/Globulin Ratio 0.8 (1.0-2.1) L 12/01/16 06:18 Urine Color Yellow (YELLOW) 11/28/16 11:52 Urine Clarity Clear (Clear) 11/28/16 11:52 Urine pH 8.0 (5.0-8.0) 11/28/16 11:52 Ur Specific [place] 1.008 (1.003-1.030) 11/28/16 11:52 Urine Protein Negative mg/dL (NEGATIVE) 11/28/16 11:52 Urine Glucose (UA) Normal mg/dL (Normal) 11/28/16 11:52 Urine Ketones Negative mg/dL (NEGATIVE) 11/28/16 11:52 Urine Blood Negative (NEGATIVE) 11/28/16 11:52 Urine Nitrate Negative (NEGATIVE) 11/28/16 11:52 Urine Bilirubin Negative (NEGATIVE) 11/28/16 11:52 Urine Urobilinogen Normal mg/dL (0.2-1.0) 11/28/16 11:52 Ur Leukocyte Esterase Neg Frank/uL (Negative) 11/28/16 11:52 Urine WBC (Auto) 1 /hpf (0-5) 11/28/16 11:52 Ur Squamous Epith Cells 2 /hpf (0-5) 11/28/16 11:52 Hyaline Casts 0-2 /lpf (0-2) 11/28/16 11:52 Urine HCG, Qual Negative (NEGATIVE) 11/28/16 11:52 Salicylates < 1.0 mg/dL 1 11/28/16 08:33 Urine Opiates Screen Negative (NEGATIVE) 11/28/16 11:52 Urine Methadone Screen Negative (NEGATIVE) 11/28/16 11:52 Acetaminophen < 10.0 ug/mL (10.0-30.0) L 11/28/16 08:33 Ur Barbiturates Screen Negative (NEGATIVE) 11/28/16 11:52 Ur Phencyclidine Scrn Negative (NEGATIVE) 11/28/16 11:52 Ur Amphetamines Screen Negative (NEGATIVE) 11/28/16 11:52 U Benzodiazepines Scrn Negative (NEGATIVE) 11/28/16 11:52 U Oth Cocaine Metabols Negative (NEGATIVE) 11/28/16 11:52 U Cannabinoids Screen Negative (NEGATIVE) 11/28/16 11:52 Alcohol, Quantitative 137 mg/dl (0-10) H 11/28/16 08:33 Attending/Attestation - Attestation I have personally seen and examined this patient.: Yes I have fully participated in the care of the patient.: Yes I have reviewed all pertinent clinical information, including history, physical exam and plan: Yes Notes (Text): 12/02/16 07:46 Medical attending: Patient was seen and examined by me, agrees the above note by hospitalist medical director. The patient explained that she felt ready to go, her potassium was 3.5. This is without the intravenous fluids with KCl in it. The previous night we also gave her to runs of albumen as well. I encouraged her to try to eat as much as possible, and also to take foods that had higher levels of potassium. Also for for the record we did do a workup for lupus before in the past. When you look at her face she has a this very classical mallor-like appearance, which she had a negative workup I encouraged her to avoid alcohol, or drug use. This time the ER documentation was noted that they were concerned that she could use some sort of substance that was not picked up on the urine drug screen. So again I emphasized to her that she's, try to avoid any type of drugs. The patient says that she was not using drugs when this happened Thank you very much, Eusebio Culver
--- NOTE | 2016-12-02 06:49 | CARD ---
APPROVED REPORT EKG Measurement Heart [id number] <Conclusion> Normal sinus rhythm Prolonged QT Abnormal ECG
[2016-12-03 01:56] LABS: PHENYTOIN,FREE <0.5 mg/L (1.0-2.0)
== END 2016-12-01 14:35 | disposition home or self-care (01) | DRG 141 ==
LOC: C.ER 06:33 → C.9OBSV 07:30 → C.9E 11:49 → C.6T 14:45 → OBSVTOIN 15:28
PROVIDERS: ADMIT Hospitalist; ATTEND Hospitalist
DX: R55 Syncope and collapse (principal); E87.6 Hypokalemia; F10.10 Alcohol abuse, uncomplicated; F31.9 Bipolar disorder, unspecified; G40.909 Epilepsy, unspecified, not intractable, without status epilepticus; R74.0 Nonspecific elevation of levels of transaminase and lactic acid dehydrogenase [LDH]; Y90.6 Blood alcohol level of 120-199 mg/100 ml; F17.210 Nicotine dependence, cigarettes, uncomplicated; F41.9 Anxiety disorder, unspecified; Z85.41 Personal history of malignant neoplasm of cervix uteri; Z85.3 Personal history of malignant neoplasm of breast

== ENCOUNTER 2016-12-02 08:05 | Emergency (ER) | payer MEDICAID ==
--- NOTE | 2016-12-02 08:08 | C.PDOC ---
History Of Present Illness 35F brought in by ems after her s/o called for altered mental status. she was apparently lethargic and slumping forward although not completely unconscious like last time- he says she was here for similar sx several days ago. per EMS when they arrived the pt was lethargic w pinpoint pupils and regained normal mental status after admin of narcan. the pt denies any complaints at this time. she reports taking her regular dose of klonopin today but denies any narcotics or any illicit drug use. Time Seen by Provider: 12/02/16 08:07 Chief Complaint (Nursing): Substance Abuse Past Medical History - Medical History PMH: Asthma, Bipolar Disorder, Seizures (last seizure was 2013-jun) Denies: Alzheimer's Disease, Anxiety, Atrial Fibrillation, Bronchitis, Cardia Arrhythmia, CHF, COPD, Dementia, Depression, Diabetes, Emphysema, Hepatitis, HIV, HTN, Hypercholesterolemia, Migraine, Mitral Valve Prolapse, Multiple Sclerosis, Paranoia, Parkinson's Disease, Peripheral Edema, Pneumonia, Post Traumatic Stress Disorder, Pulmonary Embolism, Schizophrenia, Sexually Transmitted Disease, Sleep Apnea, TIA Surgical History: Appendectomy Denies: Pacemaker - [facility] Procedures ARTIF RUPT MEMBRANES NEC (09/29/04) CERVICAL LES CAUTERIZAT (05/14/14) D & C NEC (04/15/02) EPISIOTOMY (09/29/04) EXCISION OF SMALL INTESTINE, ENDO, DIAGN (09/19/16) HYSTEROSCOPY (04/15/02) NEBULIZER THERAPY (03/17/04) UTERINE LES DESTRUCT NEC (04/15/02) Family History: States: Unknown Family Hx - Social History Hx Alcohol Use: Yes (socially) Hx Substance Use: No - Immunization History Hx Tetanus Toxoid Vaccination: No Hx Influenza Vaccination: No Hx Pneumococcal Vaccination: No Review Of Systems Except As Marked, All Systems Reviewed And Found Negative. Constitutional: Negative for: Fever, Weakness ENT: Negative for: Throat Swelling Cardiovascular: Negative for: Chest Pain Respiratory: Negative for: Cough, Shortness of Breath Gastrointestinal: Negative for: Nausea, Vomiting, Abdominal Pain Musculoskeletal: Negative for: Neck Pain Neurological: Negative for: Weakness, Numbness, Headache Psych: Negative for: Suicidal ideation Physical Exam - Physical Exam Appears: Well, Non-toxic, No Acute Distress Skin: Warm, Dry Head: Atraumatic Eye(s): bilateral: PERRL, EOMI Nose: No Epistaxis Oral Mucosa: Moist Neck: Normal ROM Cardiovascular: Rhythm Regular Respiratory: No Decreased Breath Sounds, No Accessory Muscle Use, No Rales, No Rhonchi, No Stridor, No Wheezing Gastrointestinal/Abdominal: Soft, No Tenderness Extremity: No Deformity, No Swelling Pulses: Left Radial: Normal, Right Radial: Normal Neurological/Psych: Oriented x3, Normal Motor, Normal Sensation, Other (no focal deficits) Medical Decision Making Medical Decision Making: The patient initially refused any medical attention. We did convince her to allow us to take vital signs and she allowed me to perform a physical examination. She refused any other form of evaluation and wished to sign out immediately. I discussed with her the risks of leaving without observation and further evaluation including recurrent respiratory depression and life- threatening electrolyte abnormalities which can lead to , coma, or permanent disability. She is completely alert and oriented, clinically sober and verbalizes understanding of these risks. Disposition - Disposition Referrals: [facility] [Outside] Disposition: AGAINST MEDICAL ADVICE Disposition Time: 08:20 Condition: STABLE Forms: General Discharge Instructions - Clinical Impression Clinical Impression: Accidental overdose
[2016-12-02 08:44] VITALS: BP 108/75; PULSE 107; RESP 20; TEMP 98.1; O2SAT 100
== END 2016-12-02 08:35 | disposition left against medical advice (07) ==
LOC: C.ER 08:05
DX: T50.901A Poisoning by unspecified drugs, medicaments and biological substances, accidental (unintentional), initial encounter (principal); R53.83 Other fatigue; Y92.009 Unspecified place in unspecified non-institutional (private) residence as the place of occurrence of the external cause

== ENCOUNTER 2016-12-20 07:06 | Inpatient (IN) | payer MEDICAID ==
--- NOTE | 2016-12-20 07:39 | C.PDOC ---
History Of Present Illness PATIENTS HX IS LIMITED DUE TO CLIN CONDITION. 35-YEAR-OLD FEMALE, PRESENTS TO THE EMERGENCY DEPARTMENT WITH COMPLAINTS OF CONCERN FOR OVERDOSE. PER POULTRY PROCESSING SUPERVISOR, PT LAST SEEN NORMAL @ 0430. FOUND @ 0730 , AND SHE APPEARED GROGGIER THAN NORMAL. 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 SHE'S DONE THIS BEFORE". 7 LESS PILLS EACH OF KLONIPIN AND SEROQUEL PER POULTRY PROCESSING SUPERVISOR. history of seizures, hypokalemia, asthma, breast and uterine cancer, POSSIBLE DRUG ABUSE. RECENT ER VISIT 12/02 FOR INTENTIONAL OVERDOSE BUT PT LEFT AMA. S/P NARCAN BY EMS W MILD IMPROVE. ROS UTO EXAM MOD DIST +HYPOXIA HEENT PERRLA SLUGG[place] ANICTERIC CTA B/L NO W/R/R CV RRR SINUS TACH ABD NEG NEURO LIMITED NO GROSS FOCAL DEF PSYCH INTOXICATED. SKIN WARM DRY Time Seen by Provider: 12/20/16 07:20 Chief Complaint (Nursing): Psychiatric Evaluation History Per: Patient, Family History/Exam Limitations: clinical condition Past Medical History Reviewed: Historical Data, Nursing Documentation, Vital Signs Vital Signs: Last Vital Signs Temp 94.2 F L 12/20/16 09:42 Pulse 105 H 12/20/16 09:42 Resp 18 12/20/16 09:42 BP 129/88 12/20/16 09:42 Pulse Ox 99 12/20/16 10:16 - Medical History PMH: Asthma, Bipolar Disorder, Gastritis, Hypothyroidism, Seizures (last seizure was 2013-jun) Surgical History: Appendectomy Denies: Pacemaker - [facility] Procedures ARTIF RUPT MEMBRANES NEC (09/29/04) CERVICAL LES CAUTERIZAT (05/14/14) D & C NEC (04/15/02) EPISIOTOMY (09/29/04) EXCISION OF SMALL INTESTINE, ENDO, DIAGN (09/19/16) HYSTEROSCOPY (04/15/02) NEBULIZER THERAPY (03/17/04) UTERINE LES DESTRUCT NEC (04/15/02) Family History: States: Unknown Family Hx - Social History Hx Alcohol Use: Yes (socially) Hx Substance Use: No - Immunization History Hx Tetanus Toxoid Vaccination: No Hx Influenza Vaccination: No Hx Pneumococcal Vaccination: No Review Of Systems Review Of Systems: ROS cannot be obtained secondary to pt's inabilty to answer questions. Physical Exam - Physical Exam Appears: Non-toxic, No Acute Distress, Other (MOD DIST +HYPOXIA) Skin: Warm, Dry, No Rash Eye(s): bilateral: PERRL, Other ( [place] ANICTERIC) Nose: Normal Lips: Normal Appearing Neck: Normal ROM Cardiovascular: Rhythm Regular, No Murmur, Other (TACHYCARDIC) Respiratory: Normal Breath Sounds, No Accessory Muscle Use, No Rales, No Rhonchi , No Wheezing Neurological/Psych: Other ( LIMITED NO GROSS FOCAL DEF, INTOXICATED) ED Course And Treatment - Laboratory Results Result Diagrams: 12/20/16 07:50 12/20/16 07:50 ECG: Interpreted By Me ECG Rhythm: Sinus Tachycardia Rate From EC O2 Sat by Pulse Oximetry: 99 Pulse Ox Interpretation: Normal Progress - Re-Evaluation Re-evaluation Note: 12/20/16 09:00 PERSIST SOMNALENCE BUT RESPONDS TO VERBAL. PERSIST SINUS TACH 12/20/16 09:48 MILD IMPROVE MENTAL STATUS BUT STILL W DRUG INTOX. PENDING UDS D/W DR Richard SCHWARZ, REQUESTS ADMIT TO DR Rodrigo ABREU 12/20/16 10:13 d/w dr Rodrigo ABREU ACCEPTS FOR ADMISSION 12/20/16 10:16 D/W DR WILKINSON WILL EVAL FOR ICU 12/20/16 10:[address] WILKINSON - Data Reviewed Data Reviewed: Lab, Diagnostic imaging, EKG, Old records - Critical Care Citical Care: Excluding Proc Time Critical Care Time: 120 minutes - Continuity of Care Discussed patient case with:: Covering for PMD Discussed pt. case with managed services sales consultant/specialty: Oncology, Pulmonary/Crit. Care Disposition Counseled Patient/Family Regarding: Studies Performed, Diagnosis - Disposition Disposition: HOSPITALIZED Disposition Time: 10:36 Condition: SERIOUS - POA Present On Arrival: None - Clinical Impression Clinical Impression: Overdose, Lethargy - Scribe Statement The provider has reviewed the documentation as recorded by the Scribe (Jamari Ocampo) All medical record entries made by the Scribe were at my direction and personally dictated by me. I have reviewed the chart and agree that the record accurately reflects my personal performance of the history, physical exam, medical decision making, and the department course for this patient. I have also personally directed, reviewed, and agree with the discharge instructions and disposition. Decision To Admit - Pt Status Changed To: Hospital Disposition Of: Inpatient - Admit Certification Admit to Inpatient:: After my assessment, the patient will require hospitalization for at least two midnights. This is because of the severity of symptoms shown, intensity of services needed, and/or the medical risk in this patient being treated as an outpatient. - InPatient: Physician Admission Certification: I certify that this patient requires 2 or more midnights of care for the following reason:: SEE NOTE - . Bed Request Type: ICU Admitting Physician: Agapito Abreu Patient Diagnosis: Overdose, Lethargy
[2016-12-20] MEDS: Sodium Chloride 0.9% 1,000 ML IV ONE ×2 (07:54→08:00)
[2016-12-20] MEDS ORDERED: Sodium Chloride 0.9% 1,000 ML ONE (07:56)
[2016-12-20 08:01] LABS: BASO # 0.1 K/uL (0.0-0.2); BASO % 2.2 % (0.0-2.0); EOS # 0.2 K/uL (0.0-0.7); EOS % 3.7 % (0.0-4.0); HEMATOCRIT 36.5 % (34.0-47.0); LYMPH # 3.5 K/uL (1.0-4.3); MEAN CELL VOLUME 107.3 fL (81.0-99.0); MEAN CORPUSCULAR HEMOGLOBIN 35.4 pg (27.0-31.0); MEAN PLATELET VOLUME 7.7 fL (7.2-11.7); MONO # 0.6 K/uL (0.0-0.8); MONO % 9.9 % (0.0-10.0); NRBC % 0.1 % (0.0-2.0); RED CELL DISTRIBUTION WIDTH 19.9 % (11.5-14.5); WHITE BLOOD COUNT 6.3 K/uL (4.8-10.8)
[2016-12-20 08:20] LABS: CHLORIDE 100 mmol/L (98-107); SODIUM 143 mmol/L (132-148)
[2016-12-20 08:22] LABS: GFR AFRICAN-AMERICAN > 60
[2016-12-20 08:23] LABS: ALB/GLOB RATIO 1.2 (1.0-2.1); ALKALINE PHOSPHATASE 115 U/L (38-126); ALT/SGPT 52 U/L (9-52); AST/SGOT 100 U/L (14-36); BILIRUBIN,TOTAL 0.7 mg/dL (0.2-1.3); BLOOD UREA NITROGEN 6 mg/dL (7-17); CALCIUM 8.3 mg/dl (8.6-10.4); CARBON DIOXIDE 24 mmol/L (22-30); GLUCOSE,RANDOM 102 mg/dL (65-105); TOTAL PROTEIN 5.6 g/dL (6.3-8.3)
[2016-12-20 08:24] LABS: ALCOHOL SERUM 55 mg/dl (0-10)
--- NOTE | 2016-12-20 08:34 | RAD ---
PROCEDURE: CHEST RADIOGRAPH, 1 VIEW HISTORY: Overdosed COMPARISON: 11/28/2016 FINDINGS: LUNGS: Mild venous congestion. Prominent bibasilar breast and nipple shadows. Correlation with lateral view may be helpful to exclude possible bibasilar airspace opacities. PLEURA: No pneumothorax or pleural fluid seen. CARDIOVASCULAR: Normal. OSSEOUS STRUCTURES: No significant abnormalities. VISUALIZED UPPER ABDOMEN: Normal. OTHER FINDINGS: None. IMPRESSION: Mild venous congestion. Prominent bibasilar breast and nipple shadows. Correlation with lateral view may be helpful to exclude possible bibasilar airspace opacities.
[2016-12-20 10:00] LABS: URINE BACTERIA RARE (<OCC); URINE BILIRUBIN NEGATIVE (NEGATIVE); URINE BLOOD NEGATIVE (NEGATIVE); URINE COLOR Yellow (YELLOW); URINE GLUCOSE (UA) NORMAL (Normal); URINE KETONE NEGATIVE (NEGATIVE); URINE LEUKOCYTE ESTERASE NEG Leu/uL (Negative); URINE PROTEIN NEGATIVE (NEGATIVE); URINE UROBILINOGEN NORMAL mg/dL (0.2-1.0); WBC URINE < 1 /hpf (0-5)
[2016-12-20 10:34] LABS: ABG ALLEN TEST POS; DRAW SITE RRA
--- NOTE | 2016-12-20 10:44 | CP.PCM.CON ---
<KostaBecky SUnique - Last Filed: 12/20/16 13:29> History of Present Illness - History of Present Illness History of Present Illness: HPI: From previous note of 11/30 and the ED note this is a 35 year old female with a history of seizures, hypokalemia, asthma, breast and uterine cancer presents to the ED after being found groggy per her boyfriend. PER the ED note the partner, PT LAST SEEN NORMAL @ 0430. FOUND @ 0730, AND SHE APPEARED GROGGIER THAN NORMAL. PATIENTS TESTING SPECIALIST STATES "SHE SAW ONCOLOGIST YESTERDAY, EVERY TIME SHE DOES SHE BECOMES DEPRESSED. SHE'S DONE THIS BEFORE". 7 LESS PILLS EACH OF KLONIPIN AND SEROQUEL PER TESTING SPECIALIST. RECENT ER VISIT 12/02 FOR INTENTIONAL OVERDOSE BUT PT LEFT AMA. Patient was given Narcan by EMS with mild improvement. Patient has been seen and examined she is currently obdunted PMD: Dr. Garza Psychiatry: Dr. [place] Oncologist: Dr. Yang Past Medical History: Bipolar Disorder, Hypokalemia, seizure, asthma, breast and uterine cancer (remission 7+ years) Past Surgical History: Breast and Uterine Cancer Surgery, Appendectomy Family History: Mom and Dad: Cancer Medications: 100mg Dilantin TID, 750mg Depakote PO Daily, 0.5mg Klonopin PO BID ; 300mg Seroquel PO HS; K+; Lasix, Anti-nausea medication Allergies: NKDA Social History: Per boyfriend patient has an 11 year old daughter that is currently under care of a friend. Currently unemployed; Lives with boyfriend; Patient denies illicit drug use; Per patient Social drinker 1-2x per week; patient states she has a few beers and a few shots when she drinks. Patient smokes 4 cigarettes per day for the past 19 years. Review of Systems - Review of Systems Systems not reviewed;Unavailable: Other (obtunded) Past Patient History - Infectious Disease Hx of Infectious Diseases: None - Past Medical History & Family History Past Medical History?: Yes - Past Social History Smoking Status: Light Smoker < 10 Cigarettes Daily - CARDIAC Hx Pacemaker: No - PULMONARY Hx Asthma: Yes - NEUROLOGICAL Hx Seizures: Yes (last seizure was 2013-jun) - HEENT Hx HEENT Problems: No - RENAL Other/Comment: Appendix removal 1995 - ENDOCRINE/METABOLIC Hx Hypothyroidism: Yes - HEMATOLOGICAL/ONCOLOGICAL Hx Human Immunodeficiency Virus (HIV): No - INTEGUMENTARY Hx Dermatological Problems: No - MUSCULOSKELETAL/RHEUMATOLOGICAL Hx Musculoskeletal Disorders: No (SEE COMMENT) Hx Falls: Yes (seizures) - GASTROINTESTINAL Hx Gastritis: Yes - GENITOURINARY/GYNECOLOGICAL Hx Sexually Transmitted Disorders: No - PSYCHIATRIC Hx Bipolar Disorder: Yes Hx Substance Use: No - SURGICAL HISTORY Hx Appendectomy: Yes - ANESTHESIA Hx Anesthesia: Yes Hx Anesthesia Reactions: No Hx Malignant Hyperthermia: No Meds Allergies/Adverse Reactions: Allergies Allergy/AdvReac Type Severity Reaction Status Date / Time No Known Allergies Allergy Verified 12/20/16 07:12 - Medications Medications: Current Medications Sodium Chloride (Sodium Chloride 0.9%) 1,000 mls @ 100 mls/hr IV .Q10H ONE Stop: 12/20/16 17:46 Last Admin: 12/20/16 08:00 Dose: 100 mls/hr Physical Exam - Constitutional Appears: Other (obtunded) - Head Exam Head Exam: ATRAUMATIC, NORMAL INSPECTION - ENT Exam ENT Exam: Mucous Membranes Moist - Neck Exam Neck exam: Positive for: Normal Inspection - Respiratory Exam Respiratory Exam: Clear to Auscultation Bilateral, NORMAL BREATHING PATTERN - Cardiovascular Exam Cardiovascular Exam: Tachycardia, REGULAR RHYTHM, RRR, +S1, +S2 - GI/Abdominal Exam GI & Abdominal Exam: Normal Bowel Sounds, Soft - Neurological Exam Additional comments: obtunded - Psychiatric Exam Additional comments: obtunded - Skin Skin Exam: Normal Color, Warm Results - Vital Signs Recent Vital Signs: Last Vital Signs Temp 94.2 F L 12/20/16 09:42 Pulse 105 H 12/20/16 09:42 Resp 18 12/20/16 09:42 BP 129/88 12/20/16 09:42 Pulse Ox 99 12/20/16 10:36 - Labs Result Diagrams: 12/20/16 07:50 12/20/16 07:50 Labs: Laboratory Results - last 24 hr 12/20/16 12/20/16 12/20/16 07:44 07:50 07:50 WBC 6.3 RBC 3.40 L Hgb 12.0 D Hct 36.5 MCV 107.3 H D MCH 35.4 H MCHC 33.0 RDW 19.9 H Plt Count 331 D MPV 7.7 Neut % (Auto) 28.2 L Lymph % (Auto) 56.0 H Twiggs % (Auto) 9.9 Eos % (Auto) 3.7 Baso % (Auto) 2.2 H Neut # 1.8 Lymph # 3.5 Twiggs # 0.6 Eos # 0.2 Baso # 0.1 Puncture Site pCO2 pO2 HCO3 ABG pH ABG Total CO2 ABG O2 Saturation ABG Base Excess Steve Test ABG Potassium A-a O2 Difference Respiratory Index Glucose Lactate FiO2 Sodium 143 Potassium 4.0 Chloride 100 Carbon Dioxide 24 Anion Gap 23 H BUN 6 L Creatinine 0.5 L Est GFR ( Amer) > 60 Est GFR (Non-Af Amer) > 60 POC Glucose (mg/dL) 126 H Random Glucose 102 Calcium 8.3 L Total Bilirubin 0.7 AST 100 H D ALT 52 D Alkaline Phosphatase 115 Total Protein 5.6 L Albumin 3.1 L D Globulin 2.5 Albumin/Globulin Ratio 1.2 Arterial Blood Potassium Urine HCG, Qual Salicylates Urine Opiates Screen Urine Methadone Screen Acetaminophen Ur Barbiturates Screen Phenytoin Ur Phencyclidine Scrn Ur Amphetamines Screen U Benzodiazepines Scrn U Oth Cocaine Metabols U Cannabinoids Screen Alcohol, Quantitative 55 H 12/20/16 12/20/16 12/20/16 07:50 07:50 09:40 WBC RBC Hgb Hct MCV MCH MCHC RDW Plt Count MPV Neut % (Auto) Lymph % (Auto) Twiggs % (Auto) Eos % (Auto) Baso % (Auto) Neut # Lymph # Twiggs # Eos # Baso # Puncture Site pCO2 pO2 HCO3 ABG pH ABG Total CO2 ABG O2 Saturation ABG Base Excess Steve Test ABG Potassium A-a O2 Difference Respiratory Index Glucose Lactate FiO2 Sodium Potassium Chloride Carbon Dioxide Anion Gap BUN Creatinine Est GFR ( Amer) Est GFR (Non-Af Amer) POC Glucose (mg/dL) Random Glucose Calcium Total Bilirubin AST ALT Alkaline Phosphatase Total Protein Albumin Globulin Albumin/Globulin Ratio Arterial Blood Potassium Urine HCG, Qual Negative Salicylates < 1.0 Urine Opiates Screen Urine Methadone Screen Acetaminophen < 10.0 L Ur Barbiturates Screen Phenytoin < 3.0 L Ur Phencyclidine Scrn Ur Amphetamines Screen U Benzodiazepines Scrn U Oth Cocaine Metabols U Cannabinoids Screen Alcohol, Quantitative 12/20/16 12/20/16 09:40 10:30 WBC RBC Hgb Hct MCV MCH MCHC RDW Plt Count MPV Neut % (Auto) Lymph % (Auto) Twiggs % (Auto) Eos % (Auto) Baso % (Auto) Neut # Lymph # Twiggs # Eos # Baso # Puncture Site Rra pCO2 36 pO2 153 H HCO3 26.0 ABG pH 7.45 ABG Total CO2 26.1 ABG O2 Saturation 100.6 H ABG Base Excess 1.3 Steve Test Pos ABG Potassium 3.6 A-a O2 Difference -48.0 Respiratory Index -0.3 Glucose 94 Lactate 2.4 H FiO2 21.0 Sodium 150.0 H Potassium Chloride 120.0 H Carbon Dioxide Anion Gap BUN Creatinine Est GFR ( Amer) Est GFR (Non-Af Amer) POC Glucose (mg/dL) Random Glucose Calcium Total Bilirubin AST ALT Alkaline Phosphatase Total Protein Albumin Globulin Albumin/Globulin Ratio Arterial Blood Potassium 3.6 Urine HCG, Qual Salicylates Urine Opiates Screen Negative Urine Methadone Screen Negative Acetaminophen Ur Barbiturates Screen Negative Phenytoin Ur Phencyclidine Scrn Negative Ur Amphetamines Screen Negative U Benzodiazepines Scrn Positive U Oth Cocaine Metabols Negative U Cannabinoids Screen Negative Alcohol, Quantitative Assessment & Plan - Assessment and Plan (Free Text) Assessment: From previous note of 11/30 and the ED note this is a 35 year old female with a history of seizures, hypokalemia, asthma, breast and uterine cancer presents to the ED after being found groggy per her boyfriend. Plan: Neuro: - Obtunded - Neuro Checks - Psych Consult: Dr. Smith --> help appreciated - Hx of substance abuse - 1:1 Observation Pulm: - No acute issues - Saturation 100% on 2L of NC CV: - No acute issues Hem: - No acute issues Renal: - No acute issues Endo: - No acute issues GI: - No acute issues - NPO except medications ID: - No acute issues DVT proph - SCDs; Heparin GI proph - Pepcid 20mg daily Code status - full code Case discussed with Dr. Ernst Brambila PGY-1 <Jaime Dukes - Last Filed: 12/20/16 17:36> Meds - Medications Medications: Current Medications Famotidine (Pepcid) 20 mg IVP DAILY [facility] Last Admin: 12/20/16 14:21 Dose: 20 mg Heparin Sodium (Porcine) (Heparin) 5,000 units SC Q8 MARY GRACE Last Admin: 12/20/16 14:21 Dose: 5,000 units Sodium Chloride (Sodium Chloride 0.9%) 1,000 mls @ 100 mls/hr IV .Q10H ONE Stop: 12/20/16 17:46 Last Admin: 12/20/16 08:00 Dose: 100 mls/hr Results - Vital Signs Recent Vital Signs: Last Vital Signs Temp 98 F 12/20/16 14:00 Pulse 105 H 12/20/16 15:00 Resp 11 L 12/20/16 15:00 BP 117/76 12/20/16 14:30 Pulse Ox 100 12/20/16 15:00 - Labs Result Diagrams: 12/20/16 07:50 12/20/16 07:50 Attending/Attestation - Attestation I have personally seen and examined this patient.: Yes I have fully participated in the care of the patient.: Yes I have reviewed all pertinent clinical information: Yes Notes (Text): 12/20/16 17:08 patient seen and examined 35-year-old female admitted to intensive care unit for Seroquel and Klonopin overdose Patient more awake and responsive now Continue to monitor in ICU Continue IV fluids Psych evaluation
--- NOTE | 2016-12-20 13:35 | CP.PCM.HP ---
History of Present Illness - History of Present Illness History of Present Illness: HPI: From previous note of 11/30 and the ED note this is a 35 year old female with a history of seizures, hypokalemia, asthma, breast and uterine cancer presents to the ED after being found groggy per her boyfriend. PER the ED note the partner, PT LAST SEEN NORMAL @ 0430. FOUND @ 0730, AND SHE APPEARED GROGGIER THAN NORMAL. PATIENTS ORDER SCHEDULE CLERK STATES "SHE SAW ONCOLOGIST YESTERDAY, EVERY TIME SHE DOES SHE BECOMES DEPRESSED. SHE'S DONE THIS BEFORE". 7 LESS PILLS EACH OF KLONIPIN AND SEROQUEL PER ORDER SCHEDULE CLERK. RECENT ER VISIT 12/02 FOR INTENTIONAL OVERDOSE BUT PT LEFT AMA. Patient was given Narcan by EMS with mild improvement. Patient has been seen and examined she is currently obdunted PMD: Dr. Garza Psychiatry: Dr. [place] Oncologist: Dr. Yang Past Medical History: Bipolar Disorder, Hypokalemia, seizure, asthma, breast and uterine cancer (remission 7+ years) Past Surgical History: Breast and Uterine Cancer Surgery, Appendectomy Family History: Mom and Dad: Cancer Medications: 100mg Dilantin TID, 750mg Depakote PO Daily, 0.5mg Klonopin PO BID ; 300mg Seroquel PO HS; K+; Lasix, Anti-nausea medication Allergies: NKDA Social History: Per boyfriend patient has an 11 year old daughter that is currently under care of a friend. Currently unemployed; Lives with boyfriend; Patient denies illicit drug use; Per patient Social drinker 1-2x per week; patient states she has a few beers and a few shots when she drinks. Patient smokes 4 cigarettes per day for the past 19 years. Present on Admission - Present on Admission Any Indicators Present on Admission: No Review of Systems - Review of Systems Systems not reviewed;Unavailable: Other (Obtunded) Past Patient History - Infectious Disease Hx of Infectious Diseases: None - Past Medical History & Family History Past Medical History?: Yes - Past Social History Smoking Status: Light Smoker < 10 Cigarettes Daily - CARDIAC Hx Pacemaker: No - PULMONARY Hx Asthma: Yes - NEUROLOGICAL Hx Seizures: Yes (last seizure was 2013-jun) - HEENT Hx HEENT Problems: No - RENAL Other/Comment: Appendix removal 1995 - ENDOCRINE/METABOLIC Hx Hypothyroidism: Yes - HEMATOLOGICAL/ONCOLOGICAL Hx Human Immunodeficiency Virus (HIV): No - INTEGUMENTARY Hx Dermatological Problems: No - MUSCULOSKELETAL/RHEUMATOLOGICAL Hx Musculoskeletal Disorders: No (SEE COMMENT) Hx Falls: Yes (seizures) - GASTROINTESTINAL Hx Gastritis: Yes - GENITOURINARY/GYNECOLOGICAL Hx Sexually Transmitted Disorders: No - PSYCHIATRIC Hx Bipolar Disorder: Yes Hx Substance Use: No - SURGICAL HISTORY Hx Appendectomy: Yes - ANESTHESIA Hx Anesthesia: Yes Hx Anesthesia Reactions: No Hx Malignant Hyperthermia: No Meds Allergies/Adverse Reactions: Allergies Allergy/AdvReac Type Severity Reaction Status Date / Time No Known Allergies Allergy Verified 12/20/16 07:12 Physical Exam - Constitutional Appears: Other (Obtunded) - Head Exam Head Exam: ATRAUMATIC, NORMAL INSPECTION - Neck Exam Neck exam: Positive for: Normal Inspection - Respiratory Exam Respiratory Exam: NORMAL BREATHING PATTERN. absent: Wheezes - Cardiovascular Exam Cardiovascular Exam: Tachycardia, REGULAR RHYTHM, RRR, +S1, +S2. absent: JVD - GI/Abdominal Exam GI & Abdominal Exam: Normal Bowel Sounds, Soft. absent: Rigid - Extremities Exam Extremities exam: Positive for: normal inspection, pedal pulses present. Negative for: pedal edema, tenderness - Neurological Exam Additional comments: Obtunded - Psychiatric Exam Additional comments: Obtunded - Skin Skin Exam: Dry, Normal Color, Warm Results - Vital Signs Recent Vital Signs: Last Vital Signs Temp 95.8 F L 12/20/16 11:11 Pulse 105 H 12/20/16 11:11 Resp 18 12/20/16 11:11 BP 104/74 12/20/16 11:11 Pulse Ox 98 12/20/16 11:11 - Labs Result Diagrams: 12/20/16 07:50 12/20/16 07:50 Assessment & Plan - Assessment and Plan (Free Text) Assessment: From previous note of 11/30 and the ED note this is a 35 year old female with a history of seizures, hypokalemia, asthma, breast and uterine cancer presents to the ED after being found groggy per her boyfriend. Plan: 1.) Possible intentional Overdose secondary to history of substance abuse - Admitted to ICU - Neuro Checks - 1:1 Observation - Psych Consult: Dr. Smith --> help appreciated - NPO except medications - Ambriz Placed - Monitor 2.) Prophylaxis - SCDs - Heparin 5,000 units SC Q8h - Pepcid 20mg daily
--- NOTE | 2016-12-20 13:50 | CP.PCM.PCO ---
Physician Communication Note - Physician Communication Note Physician Communication Note: Pt too lethargic to talk. On 1:1. We will do full assessment in a.m.
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
[2016-12-20] MEDS: Sodium Chloride 0.9% 1,000 ML IV SCH (20:50)
[2016-12-21 06:14] LABS: BASO # 0.1 K/uL (0.0-0.2); BASO % 0.7 % (0.0-2.0); EOS # 0.1 K/uL (0.0-0.7); EOS % 0.7 % (0.0-4.0); HEMATOCRIT 35.7 % (34.0-47.0); LYMPH # 1.9 K/uL (1.0-4.3); LYMPH % 15.1 % (20.0-40.0); MEAN CELL VOLUME 106.7 fL (81.0-99.0); MEAN CORPUSCULAR HEMOGLOBIN 35.5 pg (27.0-31.0); MEAN CORPUSCULAR HGB CONC 33.2 g/dL (33.0-37.0); MEAN PLATELET VOLUME 8.5 fL (7.2-11.7); MONO # 0.7 K/uL (0.0-0.8); MONO % 5.1 % (0.0-10.0); RED CELL DISTRIBUTION WIDTH 19.9 % (11.5-14.5); WHITE BLOOD COUNT 12.7 K/uL (4.8-10.8)
[2016-12-21 06:26] LABS: ALB/GLOB RATIO 0.9 (1.0-2.1); ALKALINE PHOSPHATASE 125 U/L (38-126); ALT/SGPT 45 U/L (9-52); AST/SGOT 75 U/L (14-36); BILIRUBIN,TOTAL 0.7 mg/dL (0.2-1.3); BLOOD UREA NITROGEN 3 mg/dL (7-17); CALCIUM 7.9 mg/dl (8.6-10.4); CARBON DIOXIDE 25 mmol/L (22-30); CHLORIDE 103 mmol/L (98-107); GFR AFRICAN-AMERICAN > 60; GLUCOSE,RANDOM 73 mg/dL (65-105); MAGNESIUM 1.3 mg/dL (1.6-2.3); POTASSIUM 3.3 mmol/L (3.6-5.2); SODIUM 137 mmol/L (132-148); TOTAL PROTEIN 5.4 g/dL (6.3-8.3)
[2016-12-21] MEDS: Sodium Chloride 0.9% 1,000 ML IV SCH ×3 (07:06→17:15)
[2016-12-21] MEDS ORDERED: Magnesium Sulfate 1 gm in D5W 1 GM/100 ML BAG IVPB ONE (09:00)
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
--- NOTE | 2016-12-21 14:47 | CARD ---
APPROVED REPORT EKG Measurement Heart [id number] <Conclusion> Sinus tachycardia Abnormal ECG
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
[2016-12-21] MEDS ORDERED: Potassium Chloride 20 mEq ER Tab PO STA ×2 (20:37→22:47)
[2016-12-22] MEDS: Sodium Chloride 0.9% 1,000 ML IV SCH ×2 (03:40→05:47)
[2016-12-22 06:43] LABS: BASO # 0.1 K/uL (0.0-0.2); BASO % 0.6 % (0.0-2.0); EOS # 0.3 K/uL (0.0-0.7); EOS % 3.1 % (0.0-4.0); HEMATOCRIT 35.5 % (34.0-47.0); LYMPH % 20.4 % (20.0-40.0); MEAN CELL VOLUME 106.4 fL (81.0-99.0); MEAN CORPUSCULAR HEMOGLOBIN 35.4 pg (27.0-31.0); MEAN CORPUSCULAR HGB CONC 33.3 g/dL (33.0-37.0); MEAN PLATELET VOLUME 8.6 fL (7.2-11.7); MONO # 0.5 K/uL (0.0-0.8); MONO % 5.3 % (0.0-10.0); NRBC % 0.1 % (0.0-2.0); RED CELL DISTRIBUTION WIDTH 18.8 % (11.5-14.5); WHITE BLOOD COUNT 9.6 K/uL (4.8-10.8)
[2016-12-22 07:01] LABS: ALB/GLOB RATIO 0.9 (1.0-2.1); ALKALINE PHOSPHATASE 134 U/L (38-126); ALT/SGPT 39 U/L (9-52); AST/SGOT 63 U/L (14-36); BILIRUBIN,TOTAL 0.6 mg/dL (0.2-1.3); CARBON DIOXIDE 25 mmol/L (22-30); CHLORIDE 102 mmol/L (98-107); GFR AFRICAN-AMERICAN > 60; GLUCOSE,RANDOM 76 mg/dL (65-105); MAGNESIUM 1.5 mg/dL (1.6-2.3); PHOSPHOROUS 3.7 mg/dL (2.5-4.5); POTASSIUM 3.5 mmol/L (3.6-5.2); SODIUM 135 mmol/L (132-148); TOTAL PROTEIN 5.5 g/dL (6.3-8.3)
[2016-12-22 07:06] LABS: BLOOD UREA NITROGEN 2 mg/dL (7-17)
[2016-12-22] MEDS ORDERED: Magnesium Sulfate 1 gm in D5W 1 GM/100 ML BAG IVPB ONE (11:00)
[2016-12-22] MEDS: Potassium Chloride 20 mEq ER Tab PO SCH (11:44)
--- NOTE | 2016-12-22 13:54 | PCM.PYCHPN ---
Psychiatric Progress Note - Psychiatric Progress Note Patient seen today, length of contact: 18 min Patient Chief Complaint: "I have no idea why I'm here" Problems Identified/Issues Discussed: Patient evaluated with medical students present. Patient states that she does not remember seeing psychiatry team yesterday. States she has no idea why she is here. Patient reports that she has a boyfriend , Brendan. Granted permission to talk to Brendan. Patient reports that Dr. Cooper is her outpatient psychiatrist, Tammy is her therapist, and Lety is her Oncologist. Patient reports that she is happy to be alive but "pissed that I can 't remember anything." Patient reports that it has been a couple of years since last inpatient stay at [facility]. Patient states, "Of course, it made me stressed and depressed. Patient's main concern is not knowing what is wrong with her body. Discussed voluntary admission to 5E, once medically cleared. Patient agreed. Past MedHx: * Leukemia (recently diagnosed, ~2weeks) * Breast CA & Cervical CA ( remission 5+ years) The pt is seen, chart reviewed, case discussed with staff. Support given, CBT, and MN used briefly. No new symptoms reported. Patient is AAOx3. No SEs from medications, risks discussed. After care discussed. Medication Change: No Medical Record Reviewed: Yes Mental Status Examination - Cognitive Function Orientation: Person, Place, Situation, Time Memory: Impaired Attention: Poor Concentration: WNL - Mood Mood: Depressed (but also labile) - Affect Affect: Constricted - Speech Speech: Appropriate - Formal Thought Process Formal Thought Process: No Impairment - Suicidal Ideation Suicidal Ideation: No - Homicidal Ideation Homicidal Ideation: No Goal/Treatment Plan - Goal/Treatment Plan Need for Continued Stay: Remain at risks for inpatient hospitalization, Discharge may exacerbated symptoms, Severe functional impairment Progress Toward Problem(s) and Goals/Treatment Plan: Support provided. Transfer to 5E once medically stable and if she signs in voluntarily. Otherwise she may need to be screened by [facility] for involuntary stay Do NOT resume klonopin and seroquel yet as she likely OD'ed Continue depakote prn Ativan, Haldol for agitation 1:1 Support and psychoed
--- NOTE | 2016-12-22 16:07 | CARD ---
APPROVED REPORT EKG Measurement Heart [id number] <Conclusion> Normal sinus rhythm Prolonged QT Abnormal ECG
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
[2016-12-23 06:45] LABS: BASO # 0.1 K/uL (0.0-0.2); EOS # 0.3 K/uL (0.0-0.7); EOS % 3.4 % (0.0-4.0); HEMATOCRIT 38.4 % (34.0-47.0); LYMPH # 1.6 K/uL (1.0-4.3); LYMPH % 18.1 % (20.0-40.0); MEAN CELL VOLUME 107.7 fL (81.0-99.0); MEAN CORPUSCULAR HEMOGLOBIN 35.2 pg (27.0-31.0); MEAN CORPUSCULAR HGB CONC 32.7 g/dL (33.0-37.0); MEAN PLATELET VOLUME 8.9 fL (7.2-11.7); MONO # 0.6 K/uL (0.0-0.8); MONO % 7.3 % (0.0-10.0); RED CELL DISTRIBUTION WIDTH 19.7 % (11.5-14.5); WHITE BLOOD COUNT 8.8 K/uL (4.8-10.8)
[2016-12-23 06:56] LABS: ALB/GLOB RATIO 0.9 (1.0-2.1); ALKALINE PHOSPHATASE 128 U/L (38-126); ALT/SGPT 36 U/L (9-52); AST/SGOT 48 U/L (14-36); BILIRUBIN,TOTAL 0.6 mg/dL (0.2-1.3); CALCIUM 8.5 mg/dl (8.6-10.4); CARBON DIOXIDE 25 mmol/L (22-30); CHLORIDE 99 mmol/L (98-107); GFR AFRICAN-AMERICAN > 60; GLUCOSE,RANDOM 75 mg/dL (65-105); MAGNESIUM 1.6 mg/dL (1.6-2.3); PHOSPHOROUS 4.4 mg/dL (2.5-4.5); POTASSIUM 3.7 mmol/L (3.6-5.2); SODIUM 132 mmol/L (132-148); TOTAL PROTEIN 5.6 g/dL (6.3-8.3)
[2016-12-23 06:59] LABS: BLOOD UREA NITROGEN 2 mg/dL (7-17)
[2016-12-23] MEDS: Potassium Chloride 20 mEq ER Tab PO SCH (11:04)
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
[2016-12-23 19:01] VITALS: O2SAT 100
[2016-12-24] MEDS: Potassium Chloride 20 mEq ER Tab PO SCH (09:00)
--- NOTE | 2016-12-24 12:49 | CP.PCM.PN ---
Subjective - Date & Time of Evaluation Date of Evaluation: 12/24/16 Time of Evaluation: 13:15 - Subjective Subjective: clinically same Objective - Vital Signs/Intake and Output Vital Signs (last 24 hours): Temp Pulse Resp BP Pulse Ox 98.1 F 106 H 15 110/74 100 12/24/16 12:00 12/24/16 12:00 12/24/16 12:00 12/24/16 12:00 12/24/16 08:00 Intake and Output: 12/24/16 12/24/16 06:59 18:59 Intake Total 240 Output Total 300 Balance -60 - Medications Medications: Current Medications Divalproex Sodium (Depakote Er) 750 mg PO DAILY [facility] Last Admin: 12/24/16 09:00 Dose: 750 mg Escitalopram Oxalate (Lexapro) 5 mg PO DAILY [facility] Last Admin: 12/24/16 09:00 Dose: 5 mg Famotidine (Pepcid) 20 mg IVP DAILY [facility] Last Admin: 12/24/16 09:01 Dose: 20 mg Heparin Sodium (Porcine) (Heparin) 5,000 units SC Q8 [facility] Last Admin: 12/24/16 06:09 Dose: 5,000 units Lorazepam (Ativan) 1 mg IVP Q6H PRN PRN Reason: Anxiety Last Admin: 12/24/16 02:17 Dose: 1 mg Phenytoin Sodium (Dilantin) 100 mg PO TID [facility] Last Admin: 12/24/16 09:00 Dose: 100 mg Potassium Chloride (K-Dur 20 Meq Er Tab) 20 meq PO BRK [facility] Last Admin: 12/24/16 09:00 Dose: 20 meq - Labs Labs: 12/23/16 06:36 12/23/16 06:36 - Constitutional Appears: Well - Head Exam Head Exam: ATRAUMATIC, NORMAL INSPECTION, NORMOCEPHALIC - Eye Exam Eye Exam: EOMI, Normal appearance, PERRL - ENT Exam ENT Exam: Mucous Membranes Moist, Normal Exam - Neck Exam Neck Exam: Full ROM, Normal Inspection. absent: Lymphadenopathy - Respiratory Exam Respiratory Exam: Decreased Breath Sounds - Cardiovascular Exam Cardiovascular Exam: REGULAR RHYTHM, +S1, +S2. absent: Murmur - GI/Abdominal Exam GI & Abdominal Exam: Soft, Diminished Bowel Sounds - Rectal Exam Rectal Exam: Deferred
--- NOTE | 2016-12-24 13:05 | PCM.PYCHPN ---
Psychiatric Progress Note - Psychiatric Progress Note Patient seen today, length of contact: 16 min Patient Chief Complaint: "Just bored" Problems Identified/Issues Discussed: She is seen in ICU and psych Better than before Still depressed but not suicidal now Not delirious either anymore After care discussed Will be transferred to psych Medication Change: Yes (increase lexapro) Medical Record Reviewed: Yes Mental Status Examination - Cognitive Function Orientation: Person, Place, Situation, Time Memory: Impaired Attention: Poor Concentration: WNL - Mood Mood: Depressed (but also labile) - Affect Affect: Constricted - Speech Speech: Appropriate - Formal Thought Process Formal Thought Process: No Impairment - Suicidal Ideation Suicidal Ideation: No - Homicidal Ideation Homicidal Ideation: No Goal/Treatment Plan - Goal/Treatment Plan Need for Continued Stay: Remain at risks for inpatient hospitalization, Discharge may exacerbated symptoms, Severe functional impairment Progress Toward Problem(s) and Goals/Treatment Plan: Support provided. Do NOT resume klonopin and seroquel yet as she likely OD'ed Continue depakote prn Ativan, Haldol for agitation Support and psychoed
--- NOTE | 2016-12-24 15:01 | PCM.BM ---
<JesúsanirudhKrys cooper - Last Filed: 12/24/16 14:59> Treatment Plan Problems - Problems identified on initial assessmt Depression Date Initiated: 12/24/16 Time Initiated: 15:00 Assessment reference: NA Status: Active Priority: 1 Suicidal Ideation Date Initiated: 12/24/16 Time Initiated: 15:00 Assessment reference: NA Status: Monitor Priority: 2 - Milieu Protocol Milieu Narrative: Support provided. Transfer to 5E once medically stable and if she signs in voluntarily. Otherwise she may need to be screened by [facility] for involuntary stay Do NOT resume klonopin and seroquel yet as she likely OD'ed Continue depakote prn Ativan, Haldol for agitation 1:1 Support and psychoed Discharge/Continuing Care - Additional Comments Support provided. Transfer to 5E once medically stable and if she signs in voluntarily. Otherwise she may need to be screened by [facility] for involuntary stay Do NOT resume klonopin and seroquel yet as she likely OD'ed Continue depakote prn Ativan, Haldol for agitation 1:1 Support and psychoed - Treatment Team Participation Patient/Family/SO Statement: Support provided. Transfer to 5E once medically stable and if she signs in voluntarily. Otherwise she may need to be screened by [facility] for involuntary stay Do NOT resume klonopin and seroquel yet as she likely OD'ed Continue depakote prn Ativan, Haldol for agitation 1:1 Support and psychoed <Karyn Centeno - Last Filed: 12/25/16 11:42> Family Contact Family involvement: Patient does not wish Family/SO involvement Family contact: Patient declines to allow family contact at present - Goals for Treatment Patient goals for treatment: '[facility]." Patient's family/SO goals for treatment: N/A Discharge/Continuing Care - Education Needs Education Needs: Patient Medication, Patient Coping Skills - Discharge Discharge Criteria: Tolerates medication w/o severe side effects, Free of Suicidal thoughts Discharge to:: Home - Treatment Team Participation Discussed with Family/SO: No Was Patient/Family/SO present at Treatment Team Meeting: Yes <Peng Smith - Last Filed: 12/26/16 22:52> - Diagnosis (1) Bipolar disorder Status: Chronic Interventions: 12/26/16 22:50 * Assess/adjust medications daily and /or as needed * See patient on an individual basis 7x/week to assess level of manic behaviors and stability * Discuss risks, benefits, side effects and alternatives of medications * (2) Overdose Status: Acute Interventions: 12/26/16 22:50 * Assess/adjust medications daily and /or as needed * Discuss risks, benefits, side effects and alternatives of medications * See patient on an individual basis 7x/week to assess level of suicidal thoughts * (3) Alcohol abuse Status: Chronic Interventions: 12/26/16 22:52 * Assess 7x/week regarding severity of withdrawal * Educate regarding risks, benefits, side effects and alternatives of medications * Use Motivational Interviewing for abstinence * Use CBT for relapse prevention * Medication management for withdrawal symptoms * Encourage medication assisted treatment *
[2016-12-24] MEDS: Divalproex 500 mg ER Tab PO SCH (18:04)
[2016-12-25] MEDS: Divalproex 500 mg ER Tab PO SCH ×2 (10:45→18:03)
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
--- NOTE | 2016-12-25 17:31 | CP.PCM.PN ---
Subjective - Date & Time of Evaluation Date of Evaluation: 12/25/16 Time of Evaluation: 10:20 - Subjective Subjective: clinically same Objective - Vital Signs/Intake and Output Vital Signs (last 24 hours): Temp Pulse Resp BP Pulse Ox 97.7 F 109 H 16 113/81 100 12/25/16 08:05 12/25/16 15:50 12/25/16 08:05 12/25/16 15:50 12/24/16 08:00 - Medications Medications: Current Medications Divalproex Sodium (Depakote Er) 500 mg PO BID [facility] Last Admin: 12/25/16 10:45 Dose: 500 mg Escitalopram Oxalate (Lexapro) 10 mg PO DAILY [facility] Last Admin: 12/25/16 10:45 Dose: 10 mg Famotidine (Pepcid) 20 mg PO DAILY [facility] Last Admin: 12/25/16 10:45 Dose: 20 mg Hydroxyzine HCl (Atarax) 50 mg PO Q4H PRN PRN Reason: Anxiety Last Admin: 12/24/16 21:00 Dose: 50 mg Ibuprofen (Motrin Tab) 600 mg PO Q6H PRN PRN Reason: Pain, moderate (4-7) Last Admin: 12/24/16 18:04 Dose: 600 mg Phenytoin Sodium (Dilantin) 100 mg PO TID [facility] Last Admin: 12/25/16 13:19 Dose: 100 mg Trazodone HCl (Desyrel) 50 mg PO HS PRN PRN Reason: Insomnia - Labs Labs: 12/23/16 06:36 12/23/16 06:36 - Constitutional Appears: No Acute Distress - Head Exam Head Exam: ATRAUMATIC, NORMAL INSPECTION, NORMOCEPHALIC - Eye Exam Eye Exam: EOMI, Normal appearance, PERRL Pupil Exam: NORMAL ACCOMODATION, PERRL - ENT Exam ENT Exam: Mucous Membranes Moist - Neck Exam Neck Exam: Full ROM - Respiratory Exam Respiratory Exam: Decreased Breath Sounds - Cardiovascular Exam Cardiovascular Exam: REGULAR RHYTHM, +S1, +S2 - GI/Abdominal Exam GI & Abdominal Exam: Soft, Diminished Bowel Sounds - Rectal Exam Rectal Exam: Deferred - Neurological Exam Neurological Exam: Alert, Awake, Oriented x3 Assessment and Plan (1) Abnormal EKG Status: Resolved (2) Accidental overdose Status: Acute (3) Alcohol abuse Status: Chronic (4) Alcohol intoxication Status: Acute (5) Alcohol use disorder, severe, dependence Status: Acute (6) Bipolar disorder Status: Chronic (7) Cervical dysplasia Status: Acute (8) Edema of both legs Status: Acute (9) Eyelid laceration, left Status: Acute (10) Facial contusion Status: Acute (11) Facial swelling Status: Acute (12) Hx of breast cancer Status: Chronic (13) Hypochloremia Status: Acute (14) Hypokalemia Status: Acute (15) Hypokalemia Status: Resolved (16) Intractable vomiting Status: Acute (17) Lethargy Status: Acute (18) Metabolic alkalosis Status: Acute (19) Overdose Status: Resolved (20) Persistent vomiting Status: Acute (21) Prophylactic measure Status: Acute (22) Scalp contusion Status: Acute (23) Seizure Status: Acute (24) Seizure disorder Status: Chronic (25) SOB (shortness of breath) on exertion Status: Acute (26) Suicidal ideations Status: Acute (27) Syncope Status: Resolved (28) Transaminitis Status: Chronic - Assessment and Plan (Free Text) Plan: ativan pepcid atarax mario other meds as ordered mario same
[2016-12-26] MEDS: Divalproex 500 mg ER Tab PO SCH ×2 (10:10→18:00)
--- NOTE | 2016-12-26 14:12 | PCM.PYCHPN ---
Psychiatric Progress Note - Psychiatric Progress Note Patient seen today, length of contact: 16 min Patient Chief Complaint: "I'm ok" Problems Identified/Issues Discussed: Patient is seen, evaluated, and case discussed with staff. Patient states that her mood has improved today, but she feels tired because of not getting enough sleep. Patient denies any suicidal ideations. She states that she will have to find a place to stay after her discharge as she was living with her boyfriend, and will ask her friends. She is compliant with all medications, and denies any side effects. Symptoms are improving, but needs time to stabilize. Support and psychoeducation given. Medication Change: Yes Medical Record Reviewed: Yes Mental Status Examination - Cognitive Function Orientation: Person, Place, Situation, Time Memory: Impaired Attention: WNL Concentration: WNL Association: Loose Fund of Knowledge: Poor - Mood Mood: Neutral - Affect Affect: Constricted - Speech Speech: Appropriate - Formal Thought Process Formal Thought Process: No Impairment - Suicidal Ideation Suicidal Ideation: No - Homicidal Ideation Homicidal Ideation: No Goal/Treatment Plan - Goal/Treatment Plan Need for Continued Stay: Remain at risks for inpatient hospitalization, Discharge may exacerbated symptoms, Severe functional impairment Progress Toward Problem(s) and Goals/Treatment Plan: Continue depakote, Lexapro, Dilantin prn Ativan, Haldol for agitation Support and psychoed
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
[2016-12-27 08:37] VITALS: RESP 20
[2016-12-27] MEDS: Divalproex 500 mg ER Tab PO SCH ×2 (09:25→17:37)
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
--- NOTE | 2016-12-27 13:46 | PCM.PYCHPN ---
Psychiatric Progress Note - Psychiatric Progress Note Patient seen today, length of contact: 16 min Patient Chief Complaint: "I'm doing fine" Problems Identified/Issues Discussed: Patient is seen, evaluated, and case discussed with staff. Patient states that she is doing better today. Patient denies any suicidal ideations. She states that she has found a place to stay with her friend after discharge. She is compliant with all medications, and denies any side effects. Symptoms are improving, but needs time to stabilize. Support and psychoeducation given. Medication Change: Yes Medical Record Reviewed: Yes Mental Status Examination - Cognitive Function Orientation: Person, Place, Situation, Time Memory: Intact Attention: WNL Concentration: WNL Association: Loose Fund of Knowledge: Poor - Mood Mood: Neutral - Affect Affect: Constricted - Speech Speech: Appropriate - Formal Thought Process Formal Thought Process: No Impairment - Suicidal Ideation Suicidal Ideation: No - Homicidal Ideation Homicidal Ideation: No Goal/Treatment Plan - Goal/Treatment Plan Need for Continued Stay: Discharge may exacerbated symptoms Progress Toward Problem(s) and Goals/Treatment Plan: Continue depakote, Lexapro, Dilantin prn Ativan, Haldol for agitation Support and psychoed Estimated Date of D/C: 12/28/16
[2016-12-28 07:26] VITALS: BP 91/51; PULSE 93; TEMP 98.4
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
[2016-12-28] MEDS: Divalproex 500 mg ER Tab PO SCH (09:45)
--- NOTE | 2016-12-31 18:56 | CARD ---
APPROVED REPORT EKG Measurement Heart [id number] <Conclusion> Normal sinus rhythm Normal ECG
== END 2016-12-28 11:40 | disposition home or self-care (01) | DRG 449 ==
LOC: SUPCPDRO 07:06 → C.ER 07:06 → C.9I 10:37 → C.5E 12-24 14:48
PROVIDERS: ADMIT Psychiatry & Neurology Psychiatry; ATTEND Internal Medicine Nephrology
PROC: HZ59ZZZ Individual Psychotherapy for Substance Abuse Treatment, Supportive (ICD-10-PCS; principal; 2016-12-20)
DX: T42.6X2A Poisoning by other antiepileptic and sedative-hypnotic drugs, intentional self-harm, initial encounter (principal); R09.02 Hypoxemia; C95.90 Leukemia, unspecified not having achieved remission; R45.851 Suicidal ideations; F19.121 Other psychoactive substance abuse with intoxication delirium; E87.6 Hypokalemia; T42.4X2A Poisoning by benzodiazepines, intentional self-harm, initial encounter; C55 Malignant neoplasm of uterus, part unspecified; F31.4 Bipolar disorder, current episode depressed, severe, without psychotic features; E03.9 Hypothyroidism, unspecified; J45.909 Unspecified asthma, uncomplicated; G40.909 Epilepsy, unspecified, not intractable, without status epilepticus; F17.210 Nicotine dependence, cigarettes, uncomplicated; R53.83 Other fatigue; F60.3 Borderline personality disorder; R45.1 Restlessness and agitation; F19.10 Other psychoactive substance abuse, uncomplicated

== ENCOUNTER 2017-01-23 21:59 | Emergency (ER) | payer MEDICAID ==
[2017-01-23 22:11] VITALS: O2SAT 99
[2017-01-23] MEDS ORDERED: Lidocaine 2% w Epi 1:100,000 Inj IJ ONE (22:47)
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
[2017-01-24 00:09] VITALS: BP 128/82; PULSE 72; RESP 16; TEMP 98.3
== END 2017-01-24 00:07 ==
LOC: SUPCPDRO 21:59 → C.ER 21:59
DX: S01.112A Laceration without foreign body of left eyelid and periocular area, initial encounter (principal); S00.03XA Contusion of scalp, initial encounter; Y04.0XXA Assault by unarmed brawl or fight, initial encounter

== ENCOUNTER 2017-02-03 08:45 | Inpatient (IN) | payer MEDICAID ==
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
[2017-02-03 09:29] LABS: BASO # 0.2 K/uL (0.0-0.2); BASO % 2.8 % (0.0-2.0); EOS # 0.1 K/uL (0.0-0.7); EOS % 1.7 % (0.0-4.0); HEMATOCRIT 38.3 % (34.0-47.0); LYMPH # 1.3 K/uL (1.0-4.3); LYMPH % 25.1 % (20.0-40.0); MEAN CELL VOLUME 109.9 fL (81.0-99.0); MEAN CORPUSCULAR HEMOGLOBIN 37.2 pg (27.0-31.0); MEAN CORPUSCULAR HGB CONC 33.9 g/dL (33.0-37.0); MEAN PLATELET VOLUME 6.9 fL (7.2-11.7); MONO # 0.4 K/uL (0.0-0.8); MONO % 8.3 % (0.0-10.0); RED CELL DISTRIBUTION WIDTH 17.4 % (11.5-14.5); WHITE BLOOD COUNT 5.4 K/uL (4.8-10.8)
[2017-02-03 09:41] LABS: ALB/GLOB RATIO 1.3 (1.0-2.1); AST/SGOT 35 U/L (14-36); BILIRUBIN,TOTAL 0.4 mg/dL (0.2-1.3); BLOOD UREA NITROGEN 12 mg/dL (7-17); CALCIUM 8.9 mg/dl (8.6-10.4); CARBON DIOXIDE 26 mmol/L (22-30); CHLORIDE 103 mmol/L (98-107); GFR AFRICAN-AMERICAN > 60; GLUCOSE,RANDOM 88 mg/dL (65-105); POTASSIUM 3.7 mmol/L (3.6-5.2); SODIUM 146 mmol/L (132-148); TOTAL PROTEIN 7.6 g/dL (6.3-8.3)
[2017-02-03 09:42] LABS: ALCOHOL SERUM 256 mg/dl (0-10); ALKALINE PHOSPHATASE 113 U/L (38-126); ALT/SGPT 28 U/L (9-52)
[2017-02-03 10:41] LABS: URINE BILIRUBIN NEGATIVE (NEGATIVE); URINE BLOOD NEGATIVE (NEGATIVE); URINE COLOR Yellow (YELLOW); URINE GLUCOSE (UA) NORMAL (Normal); URINE KETONE NEGATIVE (NEGATIVE); URINE LEUKOCYTE ESTERASE NEG Leu/uL (Negative); URINE PROTEIN NEGATIVE (NEGATIVE); URINE UROBILINOGEN NORMAL mg/dL (0.2-1.0); WBC URINE 1 /hpf (0-5)
--- NOTE | 2017-02-03 17:12 | PCM.BM ---
<ScotLiset - Last Filed: 02/03/17 17:11> Treatment Plan Problems - Problems identified on initial assessmt Depression Date Initiated: 02/03/17 Time Initiated: 17:11 Assessment reference: NA Status: Active Comment: ETOH abuse Treatment assets and liabiliti Patient Assests: cooperative, self-reliant, ADL independent, negotiates basic needs Patient Liabilities: live alone, financial problems, poor support system, substance abuse (ETOH 256 - negative drug screen) - Milieu Protocol Maintain good personal hygiene: daily Encourage regular showers, daily Remind patient to perform daily oral care Conduct patient checks and document Observation sheet: Q15 minutes Maintain personal safety: every shift Educate patient to report safety concerns to staff, every shift Monitor environment for contraband/sharps Medication safety: Monitor for expected outcome, potential side effects: every shift, Assess barriers to learning: every shift, Assess readiness for medication education: every shift <Karyn Centeno - Last Filed: 02/07/17 11:01> Family Contact Family involvement: Family/SO is involved Family contact: Patient declines to allow family contact at present - Goals for Treatment Patient goals for treatment: "I want to go back to my outpatient program." Discharge/Continuing Care - Education Needs Education Needs: Patient Medication, Patient Coping Skills, Patient Community resources - Discharge Discharge Criteria: Tolerates medication w/o severe side effects, Free of Suicidal thoughts, Reduction of target symptoms Discharge to:: Home - Treatment Team Participation Discussed with Family/SO: No Was Patient/Family/SO present at Treatment Team Meeting: Yes <ChepeFaheem - Last Filed: 02/07/17 11:07> - Diagnosis (1) Bipolar disorder Status: Chronic Interventions: 02/07/17 11:06 * Assess/adjust medications daily and /or as needed * See patient on an individual basis 7x/week to assess level of manic behaviors and stability * Discuss risks, benefits, side effects and alternatives of medications (2) Alcohol use disorder, severe, dependence Status: Acute Interventions: 02/07/17 11:07 * Assess 7x/week regarding severity of withdrawal * Educate regarding risks, benefits, side effects and alternatives of medications * Use Motivational Interviewing for abstinence * Use CBT for relapse prevention * Medication management for withdrawal symptoms * Encourage medication assisted treatment
[2017-02-03 18:41] VITALS: O2SAT 100
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
--- NOTE | 2017-02-06 04:01 | PCM.PYCHPN ---
Psychiatric Progress Note - Psychiatric Progress Note Patient seen today, length of contact: 15 MIN Patient Chief Complaint: MY BEST FRIEND CALLED MY BROTHER TO TELL HIM I WAS IN THE HOSPITAL. HE TOLD HER NOT TO BOTHER HIM AGAIN Problems Identified/Issues Discussed: MOTHER'S AND GRIEVING PAWS SYMPTOM MANAGEMENT Medical Problems: NOTHING ACUTE Diagnostic Results: REVIEWED DSM 5 Symptoms Update: VIVID DREAMS Medication Change: Yes (LIBRIUM TAPER) Medical Record Reviewed: Yes Mental Status Examination - Cognitive Function Orientation: Person, Place, Situation Memory: Intact Attention: WNL Concentration: Poor Association: WNL Fund of Knowledge: WNL - Mood Mood: Depressed, Anxious - Affect Affect: Constricted - Speech Speech: Appropriate - Formal Thought Process Formal Thought Process: No Impairment - Suicidal Ideation Suicidal Ideation: No - Homicidal Ideation Homicidal Ideation: No Goal/Treatment Plan - Goal/Treatment Plan Need for Continued Stay: Discharge may exacerbated symptoms Progress Toward Problem(s) and Goals/Treatment Plan: BIPOAR DISORDER SEROQUEL DEPAKOTE LEXAPRO TRAZODONE KATHERIN, RECREATIONAL AND GROUP THERAPY CBT [place] SUPPORTIVE PSYCHOTHERAPY ALCOHOL WITHDRAWAL LIBRIUM ALCOHOL USE DISORDER CBT [place] SUPPORTIVE PSYCHOTHERAPY Estimated Date of D/C: 02/13/17 - Smoking Cessation Smoking Cessation Initiated: No
--- NOTE | 2017-02-06 10:45 | PCM.PYCHPN ---
Psychiatric Progress Note - Psychiatric Progress Note Patient seen today, length of contact: 15 MIN Patient Chief Complaint: "A few days before I came here I was either going to kill myself or kill someone else" Problems Identified/Issues Discussed: The patient was seen, the chart reviewed, and case was discussed with staff. The patient is compliant with medication is not experiencing any side effects. Patient is cooperative during the interview. She offers no complaints at this time. She has no suicidal or homicidal ideation. No new symptoms reported. Patient is improving slowly and needs more time to stabilize. After case discussed, support and psychoeducation given. Medication Change: Yes (LIBRIUM TAPER) Medical Record Reviewed: Yes Mental Status Examination - Cognitive Function Orientation: Person, Place, Situation Memory: Intact Attention: WNL Concentration: Poor Association: WNL Fund of Knowledge: WNL - Mood Mood: Depressed, Anxious - Affect Affect: Constricted - Speech Speech: Appropriate - Formal Thought Process Formal Thought Process: No Impairment - Suicidal Ideation Suicidal Ideation: No - Homicidal Ideation Homicidal Ideation: No Goal/Treatment Plan - Goal/Treatment Plan Need for Continued Stay: Discharge may exacerbated symptoms, Severe functional impairment Progress Toward Problem(s) and Goals/Treatment Plan: Bipolar disorder CBT [place] Psychoeducation Supportive therapy, group therapy Seroquel 100mg PO HS Depakote 250 mg PO TID Lexapro 10mg PO daily Trazadone 50mg PO HS Alcohol withdrawal Librium taper Alcohol use disorder CBT [place] Supportive psychotherapy Estimated Date of D/C: 02/13/17 - Smoking Cessation Smoking Cessation Initiated: No
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
[2017-02-07] MEDS: Divalproex 500 mg ER Tab PO SCH ×2 (10:20→17:36)
[2017-02-08 07:29] VITALS: RESP 19; TEMP 98.1
[2017-02-08] MEDS: Divalproex 500 mg ER Tab PO SCH ×2 (09:30→17:52)
--- NOTE | 2017-02-08 10:14 | PCM.PYCHPN ---
Psychiatric Progress Note - Psychiatric Progress Note Patient seen today, length of contact: 15 MIN Patient Chief Complaint: "I'm feeling anxious" Problems Identified/Issues Discussed: The pt is seen, chart reviewed, case discussed with staff. Support given, CBT and AR used briefly No new symptoms reported, improving slowly and needs some more time No SEs from medications, risks discussed. After care discussed - He now says he will move to [place] where his GF who is lives. Medication Change: Yes (Increase depakote) Medical Record Reviewed: Yes Mental Status Examination - Cognitive Function Orientation: Person, Place, Situation Memory: Intact Attention: WNL Concentration: Poor Association: WNL Fund of Knowledge: WNL - Mood Mood: Depressed, Anxious - Affect Affect: Constricted - Speech Speech: Appropriate - Formal Thought Process Formal Thought Process: No Impairment - Suicidal Ideation Suicidal Ideation: No - Homicidal Ideation Homicidal Ideation: No Goal/Treatment Plan - Goal/Treatment Plan Need for Continued Stay: Discharge may exacerbated symptoms, Severe functional impairment Progress Toward Problem(s) and Goals/Treatment Plan: Bipolar disorder CBT [place] Psychoeducation Supportive therapy, group therapy Seroquel 100mg PO HS Increase Depakote 500 mg PO BID Lexapro 10mg PO daily Trazadone 50mg PO HS Alcohol withdrawal D/C Librium taper Alcohol use disorder CBT [place] Supportive psychotherapy Estimated Date of D/C: 02/13/17 - Smoking Cessation Smoking Cessation Initiated: No
[2017-02-08 15:52] VITALS: BP 117/78; PULSE 62
[2017-02-09] MEDS: Divalproex 500 mg ER Tab PO SCH (09:50)
--- NOTE | 2017-02-09 10:09 | PCM.PYCHDC ---
Mental Status Examination - Mental Status Examination Orientation: Person, Place, Situation, Time Memory: Intact Mood: Neutral Affect: Constricted Speech: Soft Attention: WNL Concentration: WNL Association: WNL Fund of Knowledge: WNL Formal Thought Process: No Impairment Description of patient's judgement and insight: good, fair Psychotic Thoughts and Behaviors: denies any aVH Suicidal Ideation: No Current Homicidal Ideation?: No Discharge Summary - Discharge Note Reason for Hospitalization: Pt is a 36 year old single un-domiciled unemployed female who suffers from bipolar seizure disorder and alcohol use disorder. pt overdosed on 10 0.5 mg of klonopin pt was a discharged from in late December after an overdose that had required ICU . Pt is prescribed Seroquel, Depakote, Dilantin lexapro and Trazodone. Pt has been stable on these meds for 11 years. Pt was for 5 years and has been 9 years. She has an 11 year old daughter who lives with her father, pt has been homeless for several days because she broke up with her boy friend. She has an ecchomotic bruise under her left eye. Biological father is alive in [place]., mother 2015. Pt states she was her only support pt has 2 brothers .she states one of them is bipolar and has had a substance abuse disorder pt's step father and brothers want nothing to do with her. 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 Pt was arrested for assault with a weapon a can of mace that was larger than legal limit. Pt was never in the . Pt started de pt was also arrested for assaulting her brother who is a special police son after their mother's death17 and alcohol became a problem after of her daughter.pt was diagnosed with bipolar disorder about this time. Pt drinks a bottle of vodka when she binges. Pt has had 7 psych hospitalizations. She has been admitted 4 times to [facility] and 3 times was voluntary at [facility]. Pt states her manic symptoms include such anger she attacks and does not remember what she has Consultations:: List each consultation separately and include: 1. Reason for request. 2. Findings. 3. Follow-up Summary of Hospital Course include:: 1. Description of specific treatment plan utilized for patients during their course of treatmen. 2. Summarize the time- course for resolution of acute symptoms and/or regressed behaviors. 3. Describe issues identified and worked on during hospitalization. 4. Describe medication utilized. 5. Describe medical problems identified and treated. 6. Reassessment of suicide risk Summary of Hospital Course: During the course of her stay, patient (pt) started progressively improving and she no longer remained depressed, and agitated. She tolerated the medications and denied any sweating, tremors or cramps or any other side effects upon discharge. She started attending groups and meetings and started socializing. She denied any feelings of hopelessness, helplessness, and worthlessness, denied any problem with the sleep or appetite, denied suicidal ideation or homicidal ideation. Pt denied any auditory or visual hallucinations. Patient remained calm and cooperative and remained compliant with the medications. Patient tolerated the medications very well and denied any side effects. - Diagnosis (1) Bipolar disorder Status: Chronic (2) Alcohol use disorder, severe, dependence Status: Acute - Final Diagnosis (DSM 5) Condition upon Discharge: STABLE DSM 5: Bipolar disorder Alcohol withdrawal Alcohol use disorder severe Disposition: HOME/ ROUTINE Follow-up Treatment Plan: Education: Pt was educated and counseled about the risks and benefits of taking and not taking medications. Pt was educated and counseled about the risks of drinking and abusing drugs. Pt was educated and counseled to go to the ER or call 911 if pt develop suicidal ideation or homicidal ideation, worsening of symptoms or severe side effects of the meds. Prescriptions/Medication Reconciliation: Divalproex [Depakote ER] 500 mg PO BID 14 Days Escitalopram [Lexapro] 10 mg PO DAILY #14 tab Naltrexone [Revia] 50 mg PO DAILY #14 tab QUEtiapine [Seroquel] 100 mg PO HS #30 tab - Smoking Cessation Smoking Cessation Medication prescribed: No - Antipsychotic Medications Pt discharged on 2 or more routine antipsychotic medications: No
--- NOTE | 2017-02-21 14:23 | CARD ---
APPROVED REPORT EKG Measurement Heart [id number] <Conclusion> Normal sinus rhythm Possible Left atrial enlargement Prolonged QT Abnormal ECG
== END 2017-02-09 11:00 | disposition home or self-care (01) | DRG 430 ==
LOC: C.ER 08:45 → C.9OBSV 09:57 → C.5E 15:13 → OBSVTOIN 15:13
PROVIDERS: ADMIT Psychiatry & Neurology Psychiatry; ATTEND Psychiatry & Neurology Psychiatry
PROC: HZ2ZZZZ Detoxification Services for Substance Abuse Treatment (ICD-10-PCS; principal; 2017-02-03)
PROC: GZ56ZZZ Individual Psychotherapy, Supportive (ICD-10-PCS; 2017-02-03)
DX: F31.9 Bipolar disorder, unspecified (principal); G40.909 Epilepsy, unspecified, not intractable, without status epilepticus; F10.230 Alcohol dependence with withdrawal, uncomplicated; E03.9 Hypothyroidism, unspecified; F10.229 Alcohol dependence with intoxication, unspecified; Y90.8 Blood alcohol level of 240 mg/100 ml or more; J45.909 Unspecified asthma, uncomplicated; Z59.0 Homelessness; S00.12XA Contusion of left eyelid and periocular area, initial encounter

== ENCOUNTER 2017-03-08 19:02 | Inpatient (IN) | payer MEDICAID, OTHER ==
[2017-03-08 19:03] VITALS: BMI 19.9
--- NOTE | 2017-03-08 19:29 | C.PDOC ---
History Of Present Illness Patient presents to the ER with a complaint of feeling depressed and suicidal, stating she wants to kill herself. Patient has a Hx of suicidal attempts in the past. Denies physical complaints at this time. Time Seen by Provider: 03/08/17 19:28 Chief Complaint (Nursing): Psychiatric Evaluation History Per: Patient History/Exam Limitations: no limitations Onset/Duration Of Symptoms: Hrs Current Symptoms Are (Timing): Still Present Suicide/Self Injury Attempted (Context): None Modifying Factor(s): None Severity: None Pain Scale Rating Of: 0 Associated Symptoms: Depression, Suicidal Thoughts. denies: Suicidal Plan Involuntary Hold By: None Recent travel outside of the [place]: No Past Medical History Reviewed: Historical Data, Nursing Documentation, Vital Signs Vital Signs: Last Vital Signs Temp 98.4 F 03/08/17 19:09 Pulse 100 H 03/08/17 23:15 Resp 20 03/08/17 23:15 BP 107/68 03/08/17 23:15 Pulse Ox 98 03/08/17 23:15 - Medical History PMH: Asthma, Bipolar Disorder, Gastritis, Hypothyroidism, Seizures (last seizure was 2013-jun) Surgical History: Appendectomy - [facility] Procedures ARTIF RUPT MEMBRANES NEC (09/29/04) CERVICAL LES CAUTERIZAT (05/14/14) D & C NEC (04/15/02) DETOXIFICATION SERVICES FOR SUBSTANCE ABUSE TREATMENT (02/03/17) EPISIOTOMY (09/29/04) EXCISION OF SMALL INTESTINE, ENDO, DIAGN (09/19/16) HYSTEROSCOPY (04/15/02) INDIV PSYCHOTHERAPY FOR SUBSTANCE ABUSE TREATMENT, SUPPORT (12/20/16) INDIVIDUAL PSYCHOTHERAPY, SUPPORTIVE (02/03/17) NEBULIZER THERAPY (03/17/04) UTERINE LES DESTRUCT NEC (04/15/02) Family History: States: No Known Family Hx - Social History Hx Alcohol Use: Yes (alcohol abuse) Hx Substance Use: No - Immunization History Hx Tetanus Toxoid Vaccination: Yes Hx Influenza Vaccination: No Hx Pneumococcal Vaccination: No Review Of Systems Constitutional: Negative for: Fever, Chills Cardiovascular: Negative for: Chest Pain Respiratory: Negative for: Shortness of Breath Gastrointestinal: Negative for: Nausea, Vomiting, Diarrhea Musculoskeletal: Negative for: Back Pain Skin: Negative for: Rash Neurological: Negative for: Weakness Psych: Positive for: Depression, Suicidal ideation Physical Exam - Physical Exam Appears: Non-toxic, No Acute Distress Skin: Warm, Dry Head: Normacephalic Eye(s): bilateral: Normal Inspection Oral Mucosa: Moist Neck: Supple Chest: Symmetrical Cardiovascular: Rhythm Regular Respiratory: No Rales, No Rhonchi, No Wheezing Gastrointestinal/Abdominal: Soft, No Tenderness Back: Normal Inspection Extremity: Bilateral: Atraumatic Neurological/Psych: Oriented x3 Gait: Steady ED Course And Treatment - Laboratory Results Result Diagrams: 03/08/17 20:05 03/08/17 20:05 O2 Sat by Pulse Oximetry: 98 (room air) Pulse Ox Interpretation: Normal Progress Note: Blood work and urinalysis ordered. ED OBSERVATION Date of observation admission: 03/08/17 Time of observation admission: 20:40 - Observation admission statement Patient is placed on observation because of need: for serial examinations to determine stability for disposition - Goals of Observation Goals of Observation: Psychiatric stabilization - Progress Note Time:: 20:40 Observation Progress Note: Patient is awake, vitals are stable, but symptoms persist Disposition Discussed With : Lexis Wilde Comment: accepted the pt on her service and took over the care at 4:47 AM Doctor Will See Patient In The: Hospital Counseled Patient/Family Regarding: Studies Performed, Diagnosis - Disposition Disposition: HOSPITALIZED Disposition Time: 19:29 Condition: FAIR - Clinical Impression Clinical Impression: Alcohol abuse, Major depressive disorder - Scribe Statement The provider has reviewed the documentation as recorded by the Scriblourdes Millard All medical record entries made by the Polinaibe were at my direction and personally dictated by me. I have reviewed the chart and agree that the record accurately reflects my personal performance of the history, physical exam, medical decision making, and the department course for this patient. I have also personally directed, reviewed, and agree with the discharge instructions and disposition. Decision To Admit - Pt Status Changed To: Hospital Disposition Of: Inpatient - Admit Certification Admit to Inpatient:: After my assessment, the patient will require hospitalization for at least two midnights. This is because of the severity of symptoms shown, intensity of services needed, and/or the medical risk in this patient being treated as an outpatient. - InPatient: Physician Admission Certification: I certify that this patient requires 2 or more midnights of care for the following reason:: After my assessment, the patient will require hospitalization for at least two midnights. This is because of the severity of symptoms shown, intensity of services needed, and/or the medical risk in this patient being treated as an outpatient. - . Bed Request Type: Psychiatry Admitting Physician: Lexis Wilde Patient Diagnosis: Alcohol abuse, Major depressive disorder
[2017-03-08 20:11] LABS: BASO # 0.1 K/uL (0.0-0.2); BASO % 1.1 % (0.0-2.0); EOS # 0.2 K/uL (0.0-0.7); EOS % 3.3 % (0.0-4.0); HEMATOCRIT 35.1 % (34.0-47.0); LYMPH # 2.4 K/uL (1.0-4.3); LYMPH % 37.6 % (20.0-40.0); MEAN CELL VOLUME 104.5 fL (81.0-99.0); MEAN CORPUSCULAR HEMOGLOBIN 36.7 pg (27.0-31.0); MEAN CORPUSCULAR HGB CONC 35.1 g/dL (33.0-37.0); MEAN PLATELET VOLUME 6.8 fL (7.2-11.7); MONO # 0.4 K/uL (0.0-0.8); MONO % 6.9 % (0.0-10.0); NRBC % 0.1 % (0.0-2.0); RED CELL DISTRIBUTION WIDTH 16.9 % (11.5-14.5); WHITE BLOOD COUNT 6.3 K/uL (4.8-10.8)
[2017-03-08 20:19] LABS: CHLORIDE 101 mmol/L (98-107); SODIUM 141 mmol/L (132-148)
[2017-03-08 20:20] LABS: URINE BILIRUBIN NEGATIVE (NEGATIVE); URINE BLOOD NEGATIVE (NEGATIVE); URINE COLOR Straw (YELLOW); URINE GLUCOSE (UA) NORMAL (Normal); URINE KETONE NEGATIVE (NEGATIVE); URINE LEUKOCYTE ESTERASE NEG Leu/uL (Negative); URINE PROTEIN NEGATIVE (NEGATIVE); URINE UROBILINOGEN NORMAL mg/dL (0.2-1.0); WBC URINE 1 /hpf (0-5)
[2017-03-08 20:21] LABS: BILIRUBIN,TOTAL 0.4 mg/dL (0.2-1.3); GFR AFRICAN-AMERICAN > 60
[2017-03-08 20:22] LABS: ALB/GLOB RATIO 1.2 (1.0-2.1); ALKALINE PHOSPHATASE 87 U/L (38-126); ALT/SGPT 17 U/L (9-52); AST/SGOT 39 U/L (14-36); BLOOD UREA NITROGEN 14 mg/dL (7-17); CALCIUM 8.8 mg/dl (8.6-10.4); CARBON DIOXIDE 26 mmol/L (22-30); GLUCOSE,RANDOM 80 mg/dL (65-105); TOTAL PROTEIN 7.9 g/dL (6.3-8.3)
[2017-03-08 20:34] LABS: ALCOHOL SERUM 360 mg/dl (0-10)
--- NOTE | 2017-03-09 05:22 | PCM.BM ---
<Mary Breaux - Last Filed: 03/09/17 05:19> Treatment Plan Problems - Problems identified on initial assessmt Problem 1 Date Initiated: 03/09/17 Time Initiated: 05:20 Treatment assets and liabiliti Patient Assests: cooperative, self-reliant, ADL independent, negotiates basic needs, good past tx response - Milieu Protocol Maintain good personal hygiene: daily Encourage regular showers, daily Remind patient to perform daily oral care, daily Assist patient to perform ADL's Maintain personal safety: every shift Educate patient to report safety concerns to staff, every shift Monitor environment for contraband/sharps Medication safety: Monitor for expected outcome, potential side effects: every shift, Assess readiness for medication education: every shift <Karyn Centeno - Last Filed: 03/09/17 10:48> Family Contact Family involvement: Famliy/SO not involved - Goals for Treatment Patient goals for treatment: "I don't care." Discharge/Continuing Care - Education Needs Education Needs: Patient Medication, Patient Coping Skills, Patient Placement options, Patient Community resources - Discharge Discharge Criteria: Tolerates medication w/o severe side effects, Free of Suicidal thoughts, No longer exhibiting s/s of withdrawal, Reduction of target symptoms Discharge to:: Home - Treatment Team Participation Discussed with Family/SO: Yes Was Patient/Family/SO present at Treatment Team Meeting: No <Peng Smith - Last Filed: 03/12/17 12:40> - Diagnosis (1) Major depressive disorder Status: Acute Interventions: 03/12/17 12:40 * Assess/adjust medications daily and /or as needed * See patient on an individual basis 7x/week to assess symptoms of depression * Monitor for side effects & effectiveness of medications *
[2017-03-09] MEDS: Multiple Vitamins Tab PO SCH (11:54)
--- NOTE | 2017-03-09 15:49 | PCM.PSYCH ---
Initial Psychiatric Evaluation - Initial Psychiatric Evaluation Type of Admission: Voluntary Legal Status: Capacity Chief Complaint (in patient's own words): " I just want to be with my mother" History of Present Illness and Precipitating Events: Pt is a 36 year old female with a PMH of Asthma, Bipolar Disorder, Gastritis, Hypothyroidism, Seizures who presented to the ED on 03/08/2017 for worsening depression and suicidal ideation. She is single, and lives with her uncle. 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 Pt states that her uncle brought her to [facility] after she told him she wanted to kill herself. Pt states that much of her depression stems from the of her mother who in May 2016. She states "ever since my mom my brothers and I don't talk anymore, there is no more family". She states "my middle brother is the reason my mother passed, and its not fair that he still has a job and walks around. His life is not affected by it". Pt reports " I just want to be with my mother, she was taken from me way too early". Pt states her mother was her biggest supporter and her lost has really affected her. She recalls when her daughter was born she tried killing herself, however, her mother talked her off the ledge. Pt has a history of a few psychiatric admissions with her most recent admission at [facility] on 02/03/2017 with suicidal ideations. Pt states she tries to drink with the attempts of killing herself. She admits to drinking approximately 1 bottle of vodka as often as she can. Pt denies going to therapy. Pt also reports smoking approximately 4-5 cigarettes everyday. Pt is encouraged to follow up on psychiatric illneses. To discuss issues with counselors and SW. Current Medications: Active Medications Generic Name Dose Route Start Last Admin Trade Name Freq PRN Reason Stop Dose Admin Benztropine Mesylate 2 mg 03/09/17 04:44 Cogentin PO Q6 PRN Extra Pyramidal Symptoms Clonidine HCl 0.1 mg 03/09/17 04:44 Catapres PO Q4H PRN Symptoms of alcohol withdrawl Escitalopram Oxalate 10 mg 03/09/17 10:00 03/09/17 11:54 Lexapro PO 10 mg DAILY MARY GRACE Administration Folic Acid 1 mg 03/09/17 10:00 03/09/17 11:54 Folic Acid PO 1 mg DAILY MARY GRACE Administration Haloperidol 5 mg 03/09/17 04:44 Haldol PO Q8 PRN Moderate Agitation Hydroxyzine HCl 25 mg 03/09/17 04:44 Atarax PO Q6 PRN Anxiety Levetiracetam 500 mg 03/09/17 10:45 03/09/17 11:54 Keppra PO 500 mg BID MARY GRACE Administration Lorazepam 2 mg 03/09/17 04:45 03/09/17 11:54 Ativan PO 03/13/17 04:44 2 mg Q4H MARY GRACE Administration Taper Multivitamins 1 tab 03/09/17 10:00 03/09/17 11:54 Hexavitamin PO 1 tab DAILY MARY GRACE Administration Quetiapine Fumarate 100 mg 03/09/17 22:00 Seroquel PO HS MARY GRACE Thiamine HCl 100 mg 03/09/17 10:00 03/09/17 11:54 Vitamin B1 Tab PO 100 mg DAILY MARY GRACE Administration Trazodone HCl 50 mg 03/09/17 04:44 Desyrel PO HS PRN Insomnia Past Psychiatric History - Past Psychiatric History Pertinent Medical Hx (Current Medical&Sleep Prob, Allergies): Allergies Allergy/AdvReac Type Severity Reaction Status Date / Time No Known Allergies Allergy Verified 03/08/17 19:08 Divalproex [Depakote ER] 500 mg PO BID [address] 02/09/17 levETIRAcetam [Keppra] 500 mg PO BID #30 tab 02/16/17 Escitalopram [Lexapro] 10 mg PO DAILY #10 tab 02/24/17 Folic Acid 1 mg PO DAILY #10 tab 02/24/17 Multimineral/Multivitamin [Therapeutic-M Tab] 1 tab PO 0800 #10 tab 02/24/17 QUEtiapine [Seroquel] 50 mg PO HS #10 tab 02/24/17 Thiamine [Vitamin B1 Tab] 100 mg PO DAILY #10 tab 02/24/17 Review of Systems - Neurological Neurological: UNREMARKABLE - Psychiatric Psychiatric: Depression, Suicidal Ideation. absent: Hallucinations, Homicidal Ideation Mental Status Examination - Personal Presentation Personal Presentation: Looks stated age - Affect Affect: Constricted - Motor Activity Motor Activity: Calm - Reliability in Providing Information Reliability in Providing Information: Good - Speech Speech: Organized, Relevant, Coherent - Mood Mood: Depressed - Formal Thought Process Formal Thought Process: No Impairment - Obsessions/Compulsions Obsessions: No Compulsions: No - Cognitive Functions Orientation: Person, Place, Situation, Time Sensorium: Alert Attention/Concentration: Attentive Estimate of Intelligence: Average Judgement: Intact, as evidence by: Insight regarding need for hospitalization Memory: Recent intact, as evidence by: Ability to recall events of the day, Remote intact, as evidenced by: Abilit to recall sig. life events - Risk Risk: Suicidal - Strength & Assets Inventory Strength & Assets Inventory: Employment status, Skills, Life experience DSM 5 DX - DSM 5 DSM 5 Diagnosis: Major Depressive disorder, recurrent r/o Bipolar Disorder r/o PTSD Personality d/o - unspecified Alcohol use disorder - severe - Recommended/Plan of Treatment Treatment Recommendations and Plan of Treatment: Start: Cogentin 2 mg PO Q6 PRN Clonidine 0.1mg PO Q4 PRN Lexapro 10mg PO DAILY Haldol 1mg PO DAILY Atarax 25mg PO Q6 PRN Keppra 500mg PO BID Lorazepam 2mg PO Q4H MARY GRACE Seroquel 100mg PO HS Trazadone 50mg PO HS PRN Attend groups and activities Individual therapy Psychoeducation and support Encourage compliance with meds and after care Refer to outpatient program Teach healthy lifestyle methods, i.e. diet, exercise, meditation Smoking cessation Projected ELOS: 5 days Prognosis: good - Smoking Cessation Smoking Cessation Initiated: Yes
[2017-03-10] MEDS: Multiple Vitamins Tab PO SCH (09:43)
--- NOTE | 2017-03-10 11:38 | PCM.PYCHPN ---
Psychiatric Progress Note - Psychiatric Progress Note Patient seen today, length of contact: 16 min Patient Chief Complaint: "I am anxious" Problems Identified/Issues Discussed: The pt is seen, chart reviewed, case discussed with staff. The pt is compliant with medications and reports no side-effects. Symptoms are improving but needs more time to stabilize. After care discussed, support and psychoeducation given. She wants more seroquel Medication Change: Yes (increase seroqul) Medical Record Reviewed: Yes Mental Status Examination - Cognitive Function Orientation: Person, Place, Situation, Time Memory: Intact Attention: WNL Concentration: Poor Association: WNL Fund of Knowledge: WNL - Mood Mood: Depressed - Affect Affect: Constricted - Speech Speech: Appropriate - Formal Thought Process Formal Thought Process: No Impairment - Suicidal Ideation Suicidal Ideation: No - Homicidal Ideation Homicidal Ideation: No Goal/Treatment Plan - Goal/Treatment Plan Need for Continued Stay: Discharge may exacerbated symptoms, Severe functional impairment Progress Toward Problem(s) and Goals/Treatment Plan: Cogentin 2 mg PO Q6 PRN Clonidine 0.1mg PO Q4 PRN Lexapro 10mg PO DAILY Haldol 1mg PO DAILY Atarax 25mg PO Q6 PRN Keppra 500mg PO BID Lorazepam 2mg PO Q4H MARY GRACE Seroquel 200mg PO HS - new dose Trazadone 50mg PO HS PRN Attend groups and activities Individual therapy Psychoeducation and support Encourage compliance with meds and after care Refer to outpatient program Teach healthy lifestyle methods, i.e. diet, exercise, meditation Smoking cessation Estimated Date of D/C: 03/14/17
[2017-03-11] MEDS: Multiple Vitamins Tab PO SCH (09:30)
--- NOTE | 2017-03-11 13:04 | PCM.PYCHPN ---
Psychiatric Progress Note - Psychiatric Progress Note Patient seen today, length of contact: 16 min Patient Chief Complaint: "I am still anxious" Problems Identified/Issues Discussed: The pt is seen, chart reviewed, case discussed with staff. Support given, CBT and DE used briefly No new symptoms reported, improving slowly and needs more time Inderal added for ongoing anxiety No SEs from medications, risks discussed. After care discussed Medication Change: Yes (increase seroquel, add inderal) Medical Record Reviewed: Yes Mental Status Examination - Cognitive Function Orientation: Person, Place, Situation, Time Memory: Intact Attention: WNL Concentration: Poor Association: WNL Fund of Knowledge: WNL - Mood Mood: Depressed - Affect Affect: Constricted - Speech Speech: Appropriate - Formal Thought Process Formal Thought Process: No Impairment - Suicidal Ideation Suicidal Ideation: No - Homicidal Ideation Homicidal Ideation: No Goal/Treatment Plan - Goal/Treatment Plan Need for Continued Stay: Discharge may exacerbated symptoms, Severe functional impairment Progress Toward Problem(s) and Goals/Treatment Plan: Cogentin 2 mg PO Q6 PRN Clonidine 0.1mg PO Q4 PRN Inderal added Lexapro 10mg PO DAILY Haldol 1mg PO DAILY Atarax 25mg PO Q6 PRN Keppra 500mg PO BID Lorazepam 2mg PO Q4H MARY GRACE Seroquel 300mg PO HS - new dose Trazadone 50mg PO HS PRN Attend groups and activities Individual therapy Psychoeducation and support Encourage compliance with meds and after care Refer to outpatient program Teach healthy lifestyle methods, i.e. diet, exercise, meditation Smoking cessation Estimated Date of D/C: 03/14/17
[2017-03-12 07:26] VITALS: O2SAT 99
[2017-03-12] MEDS: Multiple Vitamins Tab PO SCH (09:35)
--- NOTE | 2017-03-12 13:34 | PCM.PYCHPN ---
Psychiatric Progress Note - Psychiatric Progress Note Patient seen today, length of contact: 18 mins Patient Chief Complaint: "I'm doing much better doctor" Problems Identified/Issues Discussed: The pt is seen, chart reviewed, case discussed with staff. Pt reports that she is not sleeping well, states that her sleep is interrupted by her thoughts, therefore, can not sleep well throughout the night. Pt states she is still feeling a little bit anxious but denies SI, hallucinations, cravings or racing thoughts. The pt is compliant with medications and reports no side-effects. Symptoms are improving but needs more time to stabilize. After care discussed, support and psychoeducation given. Upon discharge, she will return to live with her uncle and attend the [facility] and follow up with Dr. Watkins. Pt is encouraged to do so. Medication Change: No Medical Record Reviewed: Yes Mental Status Examination - Cognitive Function Orientation: Person, Place, Situation, Time Memory: Intact Attention: WNL Concentration: WNL Association: WNL Fund of Knowledge: WNL - Mood Mood: Depressed, Neutral - Affect Affect: Constricted - Speech Speech: Appropriate - Formal Thought Process Formal Thought Process: No Impairment - Suicidal Ideation Suicidal Ideation: No - Homicidal Ideation Homicidal Ideation: No Goal/Treatment Plan - Goal/Treatment Plan Need for Continued Stay: Discharge may exacerbated symptoms, Severe functional impairment Progress Toward Problem(s) and Goals/Treatment Plan: Ativan detox Continue as needed medications Gabapentin for augmentation Attend groups and activities Supportive therapy and psychoeducation [place] for abstinence CBT for relapse prevention Encourage MAT Refer to rehab or IOP Attend self-help groups as well 18 mins Estimated Date of D/C: 03/14/17
[2017-03-12 21:06] VITALS: RESP 20
[2017-03-13 07:46] VITALS: TEMP 97.8
[2017-03-13] MEDS: Multiple Vitamins Tab PO SCH (09:20)
--- NOTE | 2017-03-13 13:42 | PCM.PYCHPN ---
Psychiatric Progress Note - Psychiatric Progress Note Patient seen today, length of contact: 17 mins Patient Chief Complaint: "I'm good doc" Problems Identified/Issues Discussed: The pt is seen, chart reviewed, case discussed with staff. Pt reports that her detox is going well and has not complaints at this time. She slept well last night and describes her mood as "good". The pt is compliant with medications and reports no side-effects. Symptoms are improving but needs more time to stabilize. After care discussed, support and psychoeducation given. Pt is looking forward to her discharge tomorrow and will continue to follow up at the [facility] Medication Change: No Medical Record Reviewed: Yes Mental Status Examination - Cognitive Function Orientation: Person, Place, Situation, Time Memory: Intact Attention: WNL Concentration: WNL Association: WNL Fund of Knowledge: WNL - Mood Mood: Neutral - Affect Affect: Constricted - Speech Speech: Appropriate - Formal Thought Process Formal Thought Process: No Impairment - Suicidal Ideation Suicidal Ideation: No - Homicidal Ideation Homicidal Ideation: No Goal/Treatment Plan - Goal/Treatment Plan Need for Continued Stay: Discharge may exacerbated symptoms, Severe functional impairment Progress Toward Problem(s) and Goals/Treatment Plan: Ativan detox As needed medications Gabapentin for augmentation Attend groups and activities Supportive therapy and psychoeducation [place] for abstinence CBT for relapse prevention Encourage MAT Refer to rehab or IOP Attend self-help groups as well 17 mins Estimated Date of D/C: 03/14/17
--- NOTE | 2017-03-14 09:35 | PCM.PYCHDC ---
Mental Status Examination - Mental Status Examination Orientation: Person, Place, Situation, Time Memory: Intact Mood: Neutral Affect: Broad Speech: Appropriate Attention: WNL Concentration: WNL Association: WNL Fund of Knowledge: WNL Formal Thought Process: No Impairment Suicidal Ideation: No Current Homicidal Ideation?: No Discharge Summary - Discharge Note Reason for Hospitalization: Major Depressive Disorder with Suicidal Ideation and alcohol use and alcohol withdrawal Consultations:: List each consultation separately and include: 1. Reason for request. 2. Findings. 3. Follow-up Summary of Hospital Course include:: 1. Description of specific treatment plan utilized for patients during their course of treatmen. 2. Summarize the time- course for resolution of acute symptoms and/or regressed behaviors. 3. Describe issues identified and worked on during hospitalization. 4. Describe medication utilized. 5. Describe medical problems identified and treated. 6. Reassessment of suicide risk Summary of Hospital Course: The pt was admitted and started on treatment with psychotherapy, support, psychoeducation and medications. Pt reports she is doing much better overall, feeling well and her mood is good. She states she is worried about taking Inderal for her anxiety because it can affect her BP, however, is encouraged to take it when she needs it and measure her BP. ND and CBT used. The pt attended groups and activities, as well as milieu therapy. All the risks and benefits of medications are discussed and the patient understood and agreed. The pt improved with the treatments provided. After care discussed with the patient. Pt will be following up at the [facility] and she is encouraged to do so. - Final Diagnosis (DSM 5) Condition upon Discharge: FAIR DSM 5: Major Depressive Disorder, recurrent Personality disorder Alcohol use disorder, severe Disposition: HOME/ ROUTINE Follow-up Treatment Plan: Continue below medications after discharge. Follow after care plan as discussed. Use relapse prevention skills Return to ER or call 911 if suicidal, homicidal or symptoms relapse. Stay away from stress, alcohol and drugs. See primary doctor regularly and get labs. Prescriptions/Medication Reconciliation: busPIRone [Buspar] 10 mg PO BID #60 tab Escitalopram [Lexapro] 10 mg PO DAILY #30 tab hydrOXYzine HCl [Atarax] 25 mg PO BID PRN #60 tab PRN Reason: Anxiety levETIRAcetam [Keppra] 500 mg PO BID #60 tab QUEtiapine [Seroquel] 300 mg PO HS #30 tab traZODone [Desyrel] 50 mg PO HS PRN #30 tab PRN Reason: Insomnia - Antipsychotic Medications Pt discharged on 2 or more routine antipsychotic medications: No
[2017-03-14] MEDS: Multiple Vitamins Tab PO SCH (09:49)
[2017-03-14 10:33] VITALS: BP 109/72; PULSE 89
== END 2017-03-14 13:17 | disposition home or self-care (01) | DRG 885 ==
LOC: SUPCPDRO 19:02 → C.ER 19:02 → C.9OBSV 20:39 → OBSVTOIN 03-09 04:46 → EEVIPCON 03-09 04:46 → C.5E 03-09 04:53
PROVIDERS: ADMIT Psychiatry & Neurology Psychiatry; ATTEND Psychiatry & Neurology Psychiatry
DX: F33.9 Major depressive disorder, recurrent, unspecified (principal); R45.851 Suicidal ideations; F10.239 Alcohol dependence with withdrawal, unspecified; F60.9 Personality disorder, unspecified; F41.9 Anxiety disorder, unspecified; E03.9 Hypothyroidism, unspecified; F31.9 Bipolar disorder, unspecified; J45.909 Unspecified asthma, uncomplicated